=== PATIENT | female | born 1930 | race Caucasian/White ===

== ENCOUNTER → 2017-01-08 | Outpatient (CLI) | payer MEDICARE ==
[~2017-01-08] MED LIST: ARIMIDEX; C250T; CLD600T; COSAMIN DS; E400C; GARLIC; HYDROXYCHLOR; LRT10T; LVT.112T; MGX400T; OCUVITE; OMG1KC; TRIAMTERENE/HCTZ; ZINC; [UNRECOGNIZED DRUG - CODE]; [UNRECOGNIZED DRUG - OTHER]
--- NOTE | 2017-01-09 09:08 | Diagnostic Imaging Report ---
Bilateral screening mammogram 2D views with tomosynthesis The current study was also evaluated with a Computer Aided Detection (CAD) system. Indication: Screening. No current complaints stated on the questionnaire. COMPARISON: 01/04/16 FINDINGS: The breasts are composed of heterogeneously dense parenchyma which may decrease mammographic sensitivity. There are benign-appearing calcifications seen. Surgical clips in the upper outer aspect of the left breast are also noted. Allowing for technique and positional differences, no suspicious change is seen. IMPRESSION: Dense breasts with no definite change. ACR BI-RADS Category 2: Benign findings. Result letter will be mailed to the patient. Note: At least 10% of breast cancer is not imaged by mammography. Dictated by: Dictated on workstation # [id number]
== END ==
LOC: RAD 09:48
PROVIDERS: ATTEND Internal Medicine
DX: Z12.31 Encounter for screening mammogram for malignant neoplasm of breast (principal)
CPT/HCPCS: 77067

== ENCOUNTER 2017-08-14 12:48 | Outpatient (RCR) | payer MEDICARE | END 2017-08-14 13:49 | disposition home or self-care (01) | PROVIDERS: ATTEND Internal Medicine | DX: R53.81 Other malaise (principal); Z91.81 History of falling ==

== ENCOUNTER → 2018-01-27 | Outpatient (CLI) | payer MEDICARE ==
--- NOTE | 2018-01-27 13:54 | Diagnostic Imaging Report ---
INDICATION: Routine screening. COMPARISON: 01/08/2017 and 01/04/2016. TECHNIQUE: 2D and 3D bilateral screening mammography was performed with CAD. FINDINGS: Both breasts are heterogeneously dense, limiting the sensitivity of mammography. Post surgical changes in the outer left breast are again noted. The overall parenchymal pattern appears to be stable. There are vascular calcifications bilaterally. No mass or malignant appearing microcalcifications are seen. The axillae are unremarkable. IMPRESSION: No mammographic features suspicious for malignancy are identified. ACR BI-RADS Category 2: Benign findings. Result letter will be mailed to the patient. Note: At least 10% of breast cancer is not imaged by mammography. Dictated by: Dictated on workstation # [id number]
== END ==
LOC: RAD 10:10
PROVIDERS: ATTEND Internal Medicine
DX: Z12.31 Encounter for screening mammogram for malignant neoplasm of breast (principal); Z85.3 Personal history of malignant neoplasm of breast
CPT/HCPCS: 77067

== ENCOUNTER 2018-02-28 13:25 | Emergency (ER) | payer MEDICARE ==
[~2018-02-28] VITALS: Ht 162.6 cm; Wt 63.5 kg
--- OUTSIDE RECORDS SUMMARY | 2018-02-28 13:29 | XMS REPORT | Continuity of Care Document ---
Author Author [facility] Organization [facility] Address Unknown Phone Unavailable Allergies Active Description Code Type Severity Reaction Onset Reported/Identified Relationship to Patient Clinical Status Yes Sulfa (Sulfonamide Antibiotics) [id number] Drug Allergy Unknown RASH 2005 Yes amoxicillin [id number] Drug Allergy Mild N/A 08/20/2006 Medications There is no data. 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 09/10/2010 Ot V10.3 HX OF BREAST MALIGNANCY 09/10/2010 Ot V43.65 KNEE JOINT REPLACEMENT STATUS 09/10/2010 Ot V58.69 OTH MED,LT, CURRENT USE 09/10/2010 Ot V67.1 RADIOTHERAPY FOLLOW-UP 12/23/2010 Ot 276.1 HYPOSMOLALITY 12/23/2010 Ot 276.8 HYPOPOTASSEMIA 12/23/2010 Ot 401.9 HYPERTENSION NOS 12/23/2010 Ot 472.0 CHRONIC RHINITIS 12/23/2010 Ot 564.00 UNSPEC CONSTIPATION 12/23/2010 Ot 780.2 SYNCOPE AND COLLAPSE 12/23/2010 Ot 787.01 NAUSEA WITH VOMITING 12/23/2010 Ot E931.9 ADV EFF ANTINFCT NEC/NOS 12/23/2010 Ot V10.3 HX OF BREAST MALIGNANCY 03/11/2011 Ot 174.9 MALIGN NEOPL BREAST NOS 01/02/2015 Ot V15.89 01/02/2015 Ot V76.11 01/02/2015 Ot V10.3 01/02/2015 Ot V76.11 01/02/2015 Ot 174.9 01/02/2015 Ot V76.12 01/02/2015 JUAN ANTONIO ARMAS, RENETTA Rm Ot V76.12 01/02/2015 JUAN ANTONIO ARMAS, RENETTA Rm Ot V76.12 01/10/2015 Ot V15.89 01/10/2015 Ot V76.11 01/10/2015 Ot V10.3 01/10/2015 Ot V76.11 01/10/2015 Ot 174.9 01/10/2015 Ot V76.12 01/10/2015 JUAN ANTONIO ARMAS, RENETTA Rm Ot V76.12 01/10/2015 JUAN ANTONIO ARMAS, RENETTA Rm Ot V76.12 01/10/2015 JUAN ANTONIO ARMAS, RENETTA Rm Ot V76.12 01/26/2015 RENETTA ROMANO MD Ot V76.12 01/04/2016 Ot V10.3 HX OF BREAST MALIGNANCY 01/04/2016 Ot V76.11 SCRN MAMMO- HIGH RISK PT, MALIGNANT NEOPL 01/04/2016 Ot 174.9 MALIGN NEOPL BREAST NOS 01/04/2016 Ot V76.12 OTH SCREEN MAMMO-MALIGN NEOPLASM OF RIGOBERTO 01/04/2016 JUAN ANTONIO ARMAS, RENETTA Rm Ot V76.12 OTH SCREEN MAMMO-MALIGN NEOPLASM OF RIGOBERTO 01/04/2016 RENETTA ROMANO MD Ot V76.12 OTH SCREEN MAMMO-MALIGN NEOPLASM OF RIGOBERTO 01/04/2016 JUAN ANTONIO ARMAS, RENETTA Rm Ot V76.12 OTH SCREEN MAMMO-MALIGN NEOPLASM OF RIGOBERTO 01/04/2016 JUAN ANTONIO ARMAS, RENETTA Rm Ot Z12.31 ENCNTR SCREEN MAMMOGRAM FOR MALIGNANT NE 01/08/2016 RENETTA ROMANO MD Ot Z12.31 ENCNTR SCREEN MAMMOGRAM FOR MALIGNANT NE 01/16/2016 JUAN ANTONIO ARMAS, RENETTA Rm Ot Z12.31 ENCNTR SCREEN MAMMOGRAM FOR MALIGNANT NE 12/25/2016 JUAN ANTONIO ARMAS, RENETTA Rm Ot Z12.31 ENCNTR SCREEN MAMMOGRAM FOR MALIGNANT NE 01/03/2017 JUAN ANTONIO ARMAS, RENETTA Rm Ot Z12.31 ENCNTR SCREEN MAMMOGRAM FOR MALIGNANT NE 01/09/2017 RENETTA ROMANO MD Ot Z12.31 ENCNTR SCREEN MAMMOGRAM FOR MALIGNANT NE 01/14/2017 JUAN ANTONIO ARMAS, RENETTA Rm Ot Z12.31 ENCNTR SCREEN MAMMOGRAM FOR MALIGNANT NE 01/29/2017 JUAN ANTONIO ARMAS, RENETTA Rm Ot Z12.31 ENCNTR SCREEN MAMMOGRAM FOR MALIGNANT NE 07/16/2017 JUAN ANTONIO ARMAS, RENETTA Rm Ot V76.12 OTH SCREEN MAMMO-MALIGN NEOPLASM OF RIGOBERTO 07/16/2017 JUAN ANTONIO ARMAS, RENETTA Rm Ot V76.12 OTH SCREEN MAMMO-MALIGN NEOPLASM OF RIGOBERTO 07/16/2017 JUAN ANTONIO ARMAS, RENETTA Rm Ot V76.12 OTH SCREEN MAMMO-MALIGN NEOPLASM OF RIGOBERTO 07/16/2017 JUAN ANTONIO ARMAS, RENETTA Rm Ot Z12.31 ENCNTR SCREEN MAMMOGRAM FOR MALIGNANT NE 07/16/2017 JUAN ANTONIO ARMAS, RENETTA Rm Ot Z12.31 ENCNTR SCREEN MAMMOGRAM FOR MALIGNANT NE 08/04/2017 JUAN ANTONIO ARMAS, RENETTA Rm Ot R53.81 OTHER MALAISE 08/04/2017 JUAN ANTONIO ARMAS, RENETTA Rm Ot Z91.81 HISTORY OF FALLING 08/04/2017 JUAN ANTONIO ARMAS, RENETTA Rm Ot V76.12 OTH SCREEN MAMMO-MALIGN NEOPLASM OF RIGOBERTO 08/04/2017 JUAN ANTONIO ARMAS, RENETTA Rm Ot V76.12 OTH SCREEN MAMMO-MALIGN NEOPLASM OF RIGOBERTO 08/04/2017 JUAN ANTONIO ARMAS, RENETTA Rm Ot V76.12 OTH SCREEN MAMMO-MALIGN NEOPLASM OF RIGOBERTO 08/04/2017 JUAN ANTONIO ARMAS, RENETTA Rm Ot Z12.31 ENCNTR SCREEN MAMMOGRAM FOR MALIGNANT NE 08/04/2017 JUAN ANTONIO ARMAS, RENETTA Rm Ot Z12.31 ENCNTR SCREEN MAMMOGRAM FOR MALIGNANT NE 08/04/2017 JUAN ANTONIO ARMAS, RENETTA Rm Ot R53.81 OTHER MALAISE 08/04/2017 JUAN ANTONIO ARMAS, RENETTA Rm Ot Z91.81 HISTORY OF FALLING 08/14/2017 JUAN ANTONIO ARMAS, RENETTA Rm Ot R53.81 OTHER MALAISE 08/14/2017 JUAN ANTONIO ARMAS, RENETTA Rm Ot Z91.81 HISTORY OF FALLING 01/27/2018 JUAN ANTONIO ARMAS, RENETTA Rm Ot V76.12 OTH SCREEN MAMMO-MALIGN NEOPLASM OF RIGOBERTO 01/27/2018 JUAN ANTONIO ARMAS, RENETTA Rm Ot V76.12 OTH SCREEN MAMMO-MALIGN NEOPLASM OF RIGOBERTO 01/27/2018 JUAN ANTONIO ARMAS, RENETTA Rm Ot V76.12 OTH SCREEN MAMMO-MALIGN NEOPLASM OF RIGOBERTO 01/27/2018 RENETTA ROMANO MD Ot Z12.31 ENCNTR SCREEN MAMMOGRAM FOR MALIGNANT NE 01/27/2018 RENETTA ROMANO MD Ot Z12.31 ENCNTR SCREEN MAMMOGRAM FOR MALIGNANT NE 01/27/2018 RENETTA ROMANO MD Ot Z12.31 ENCNTR SCREEN MAMMOGRAM FOR MALIGNANT NE 01/29/2018 RENETTA ROMANO MD Ot Z12.31 ENCNTR SCREEN MAMMOGRAM FOR MALIGNANT NE 01/29/2018 RENETTA ROMANO MD Ot Z85.3 PERSONAL HISTORY OF MALIGNANT NEOPLASM O Procedures There is no data. Results There is no data. Encounters ACCT No. Visit Date/Time Discharge Status Pt. Type Provider Facility Loc./Unit Complaint [id number] 01/27/2018 10:10:00 01/27/2018 23:59:59 CLS Outpatient RENETTA ROMANO MD [facility] RAD SCREENING [id number] 08/14/2017 12:48:00 08/14/2017 13:49:00 DIS Outpatient RENETTA ROMANO MD [facility] REHAB DECONDITIONING AND FALL RISK [id number] 01/08/2017 09:48:00 01/08/2017 23:59:59 CLS Outpatient RENETTA ROMANO MD [facility] RAD SCREENING,HX OF BREAST CA [id number] 01/04/2016 09:40:00 01/04/2016 23:59:59 CLS Outpatient RENETTA ROMANO MD [facility] RAD SCREENING [id number] 01/02/2015 09:58:00 01/02/2015 23:59:59 CLS Outpatient RENETTA ROMANO MD [facility] RAD SCREENING [id number] 12/29/2013 09:31:00 12/29/2013 23:59:59 CLS Outpatient RENETTA ROMANO MD [facility] RAD SCREENING [id number] 12/15/2012 08:20:00 12/15/2012 23:59:59 CLS Outpatient RENETTA ROMANO MD [facility] RAD SCREENING [id number] 01/02/2015 09:58:00 Document Registration [id number] 12/06/2011 09:37:00 Document Registration [id number] 03/12/2011 00:00:00 Document Registration [id number] 12/21/2010 03:40:00 Document Registration [id number] 12/18/2010 09:34:00 Document Registration [id number] 11/28/2010 12:13:00 Document Registration [id number] 06/19/2010 15:39:00 Document Registration [id number] 11/23/2009 09:21:00 Document Registration [id number] 05/24/2009 13:13:00 Document Registration
[2018-02-28] MEDS ORDERED: LOSA100T8 (13:38)
--- NOTE | 2018-02-28 13:40 | ED General ---
General Chief Complaint: Dizziness/Syncope Stated Complaint: DIZZY Source of Information: Patient, EMS Exam Limitations: No Limitations History of Present Illness Date Seen by Provider: Feb 28, 2018 Time Seen by Provider: 13:38 Initial Comments Per EMS from home with reports of dizziness. Patient states that she developed some dizziness at about 11 AM today sudden in onset after walking from the kitchen to the living room. This was transient and completely resolved by the time EMS arrived. However she states "my head doesn't feel right". She denies any headache or confusion or vision changes or complaints of unilateral weakness. She does have a history of hypertension. She denies any chest pain or shortness of breath. She denies any nausea or vomiting. She states "I just don' t feel like myself". Earlier this morning she ate breakfast at [employer] with her adult children and she had eggs over easy, hash browns and biscuits and gravy. She had a normal appetite and felt perfectly fine at that time. She does have a history of hypertension and upon arrival to the emergency room her first 2 blood pressures were 203/91 and a few minutes later 193/97. Timing/Duration: 1-3 Hours Severity: Mild Associated Systoms: No Chest Pain, No Cough, No Diaphoresis, No Fever/Chills, No Headaches Allergies and Home Medications Allergies Coded Allergies: Amoxicillin (Unverified Allergy, Mild, 08/20/06) Sulfa (Sulfonamide Antibiotics) (Verified Allergy, Unknown, RASH, 09/11/05) Home Medications [Hydroxychlor] , 200 MG BID, (Reported) Patient Home Medication List Home Medication List Reviewed: Yes Review of Systems Review of Systems Constitutional: see HPI; No chills EENTM: see HPI Respiratory: no symptoms reported, see HPI Cardiovascular: no symptoms reported Genitourinary: no symptoms reported Musculoskeletal: no symptoms reported Skin: no symptoms reported Psychiatric/Neurological: No Symptoms Reported; Denies Anxiety, Denies Depressed, Denies Emotional Problems, Denies Headache, Denies Paresthesia, Denies Pre-Existing Deficit, Denies Tingling, Denies Tremors, Denies Weakness Hematologic/Lymphatic: No Symptoms Reported Immunological/Allergic: no symptoms reported Past Vyflhov-Rtloft-Lflwoq Hx Patient Social History Alcohol Use: Denies Use Recreational Drug Use: No Smoking Status: Never a Smoker Recent Hopitalizations: Yes Past Medical History Surgeries: Yes (T&A,HYST.,THYROIDECTOMY,TKR,BREAST SURGERY,CATARACTS,ORAL SURGERY) Hysterectomy, Orthopedic Respiratory: No Cardiac: Yes (PT DENIES ANY CHEST PAIN,ANGINA,PALPATIONS,IRREGULAR HEART RATE, JAW OR ARM ) Hypertension Neurological: No Reproductive Disorders: No Gastrointestinal: No Musculoskeletal: Yes Endocrine: Yes Hypothyroidsim Psychosocial: Yes Blood Disorders: No Physical Exam Vital Signs Vital Signs - First Documented 02/28/18 13:28 Temp 97.3 Pulse 77 Resp 18 B/P (MAP) 193/94 (127) Pulse Ox 97 O2 Delivery Room Air Capillary Refill : Height, Weight, BMI Height: '" Weight: lbs. oz. 68.648286ek; BMI Method: General Appearance: No Apparent Distress, WD/WN, Other (no nystagmus, alert and oriented. No drift of the upper extremities. Speech is clear and appropriate.) Eyes: Bilateral Eye Normal Inspection, Bilateral Eye PERRL, Bilateral Eye EOMI HEENT: PERRL/EOMI, TMs Normal, Normal ENT Inspection, Pharynx Normal Neck: Full Range of Motion, Normal Inspection Respiratory: Normal Breath Sounds, No Accessory Muscle Use, No Respiratory Distress Cardiovascular: Regular Rate, Rhythm, Normal Peripheral Pulses Gastrointestinal: Normal Bowel Sounds, Non Tender, Soft Extremity: Normal Capillary Refill, Normal Inspection, Normal Range of Motion Neurologic/Psychiatric: Alert, Oriented x3, No Motor/Sensory Deficits Skin: Normal Color, Warm/Dry Progress/Results/Core Measures Suspected Sepsis SIRS Temperature: Pulse: Respiratory Rate: Laboratory Tests 02/28/18 13:26: White Blood Count 7.5 Blood Pressure / Mean: Laboratory Tests 02/28/18 13:26: Platelet Count 245 02/28/18 14:08: Creatinine 0.83, Total Bilirubin 0.4 Results/Orders Lab Results Laboratory Tests Test 02/28/18 13:26 02/28/18 14:00 02/28/18 14:08 Range/Units White Blood Count 7.5 4.3-11.0 10^3/uL Red Blood Count 3.81 L 4.35-5.85 10^6/uL Hemoglobin 12.7 11.5-16.0 G/DL Hematocrit 36 35-52 % Mean Corpuscular Volume 94 80-99 FL Mean Corpuscular Hemoglobin 33 25-34 PG Mean Corpuscular Hemoglobin Concent 36 32-36 G/DL Red Cell Distribution Width 14.6 H 10.0-14.5 % Platelet Count 245 130-400 10^3/uL Mean Platelet Volume 10.1 7.4-10.4 FL Neutrophils (%) (Auto) 74 42-75 % Lymphocytes (%) (Auto) 14 12-44 % Monocytes (%) (Auto) 10 0-12 % Eosinophils (%) (Auto) 2 0-10 % Basophils (%) (Auto) 0 0-10 % Neutrophils # (Auto) 5.6 1.8-7.8 X 10^3 Lymphocytes # (Auto) 1.1 1.0-4.0 X 10^3 Monocytes # (Auto) 0.8 0.0-1.0 X 10^3 Eosinophils # (Auto) 0.1 0.0-0.3 10^3/uL Basophils # (Auto) 0.0 0.0-0.1 10^3/uL Troponin I < 0.30 <0.30 NG/ML Urine Color YELLOW Urine Clarity SLIGHTLY CLOUDY Urine pH 7 5-9 Urine Specific [place] 1.010 L 1.016-1.022 Urine Protein 1+ H NEGATIVE Urine Glucose (UA) NEGATIVE NEGATIVE Urine Ketones NEGATIVE NEGATIVE Urine Nitrite NEGATIVE NEGATIVE Urine Bilirubin NEGATIVE NEGATIVE Urine Urobilinogen NORMAL NORMAL MG/DL Urine Leukocyte Esterase 3+ H NEGATIVE Urine RBC (Auto) 2+ H NEGATIVE Urine RBC NONE /HPF Urine WBC TNTC H /HPF Urine Squamous Epithelial Cells 2-5 /HPF Urine Crystals NONE /LPF Urine Bacteria LARGE H /HPF Urine Casts NONE /LPF Urine Mucus NEGATIVE /LPF Urine Culture Indicated YES Sodium Level 136 135-145 MMOL/L Potassium Level 4.1 3.6-5.0 MMOL/L Chloride Level 101 98-107 MMOL/L Carbon Dioxide Level 23 21-32 MMOL/L Anion Gap 12 5-14 MMOL/L Blood Urea Nitrogen 29 H 7-18 MG/DL Creatinine 0.83 0.60-1.30 MG/DL Estimat Glomerular Filtration Rate > 60 BUN/Creatinine Ratio 35 Glucose Level 96 70-105 MG/DL Calcium Level 9.3 8.5-10.1 MG/DL Corrected Calcium 9.3 8.5-10.1 MG/DL Total Bilirubin 0.4 0.1-1.0 MG/DL Aspartate Amino Transf (AST/SGOT) 13 5-34 U/L Alanine Aminotransferase (ALT/SGPT) 16 0-55 U/L Alkaline Phosphatase 55 40-136 U/L Total Protein 7.5 6.4-8.2 GM/DL Albumin 4.0 3.2-4.5 GM/DL My Orders Orders - FELICE QUINTERO APRN Ct Head Wo (02/28/18 13:32) Ekg Tracing (02/28/18 13:32) Troponin I (02/28/18 13:32) Cbc With Automated Diff (02/28/18 13:32) Ua Culture If Indicated (02/28/18 13:32) Iv Heplock-Insert (Order) (02/28/18 13:32) Clonidine Tablet (Catapres Tablet) (02/28/18 13:45) Comprehensive Metabolic Panel (02/28/18 13:56) Urine Culture (02/28/18 14:00) Ceftriaxone For Iv Use (Rocephin For I (02/28/18 14:30) Medications Given in ED Current Medications Medications Dose Ordered Sig/Caridad Route Start Time Stop Time Status Last Admin Dose Admin Ceftriaxone Sodium 1000 mg/ Sodium Chloride 50 ml @ 100 mls/hr ONCE ONCE IV 02/28/18 14:30 02/28/18 14:59 DC 02/28/18 14:40 100 MLS/HR Clonidine HCl 0.1 mg ONCE ONCE PO 02/28/18 13:45 02/28/18 13:46 DC 02/28/18 13:40 0.1 MG Vital Signs/I&O 02/28/18 02/28/18 13:28 14:17 Temp 97.3 Pulse 77 71 Resp 18 18 B/P (MAP) 193/94 (127) 188/82 (117) Pulse Ox 97 95 O2 Delivery Room Air Room Air Capillary Refill : Diagnostic Imaging Diagonstic Imaging: Xray Plain Films/CT/US/NM/MRI: chest Comments NAME: DANIEL TREVIZO [facility] REC#: [id number] PT STATUS: REG ER : 1930 PHYSICIAN: FELICE QUINTERO APRN ADMIT DATE: 02/28/18/ER Draft Date of Exam:02/28/18 CT HEAD WO PROCEDURE: CT head without contrast. TECHNIQUE: Multiple contiguous axial images were obtained through the brain without the use of intravenous contrast. INDICATION: Dizziness. COMPARISON: None. FINDINGS: BRAIN: No parenchymal hemorrhage, midline shift or mass effect. Hummel-white matter differentiation is intact. No acute infarct. Moderate periventricular and subcortical low-density white matter changes. Moderate prominence of the ventricles and Sulci consistent with cortical and cerebellar parenchymal volume loss. EXTRA-AXIAL SPACES: No subdural or epidural collections. ORBITS AND PARANASAL SINUSES: Visualized orbits and globes are intact. Visualized paranasal sinuses and mastoid air cells are clear. CALVARIUM AND SOFT TISSUES: The calvarium is intact. No fractures or suspicious bony lesions. The extracranial soft tissues are unremarkable. IMPRESSION: No acute intracranial pathology. Chronic changes consisting of age-related atrophy and nonspecific white matter disease most commonly attributed to small vessel ischemic change. Dictated on workstation # [id number] Dict: 02/28/18 1400 Trans: 02/28/18 1403 [facility] [id number] Interpreted by: DAVID ANTHONY DO Electronically signed by: Departure Communication (Admissions) 150-feeling better at this time. Family at bedside. Discussed the hypertension and urinary tract infection as a likely cause for her symptoms. She will take medication as directed and follow-up with primary care later next week. Impression Primary Impression: Urinary tract infection Qualified Codes: N30.00 - Acute cystitis without hematuria Disposition: HOME, SELF-CARE Condition: Stable Departure-Patient Inst. Decision time for Depature: 14:29 Referrals: RENETTA ROMANO MD (PCP/Family) Primary Care Physician Patient Instructions: Urinary Tract Infection, Adult (DC) Add. Discharge Instructions: 1. Drink clear fluids 2. Follow-up with your doctor next week. Take antibiotics as directed. Return to ER for any worsening. All discharge instructions reviewed with patient and/ or family. Voiced understanding. Scripts Cefuroxime Axetil (Cefuroxime) 500 Mg Tablet 500 MG PO BID, #10 TAB Prov: FELICE QUINTERO APRN 02/28/18 FELICE QUINTERO APRN Feb 28, 2018 13:40
[2018-02-28 13:43] LABS: BASOPHILS % (AUTO) 0 % (0-10); EOSINOPHILS # (AUTO) 0.1 10^3/uL (0.0-0.3); EOSINOPHILS % (AUTO) 2 % (0-10); HEMATOCRIT 36 % (35-52); HEMOGLOBIN 12.7 G/DL (11.5-16.0); LYMPHOCYTES # (AUTO) 1.1 X 10^3 (1.0-4.0); LYMPHOCYTES % (AUTO) 14 % (12-44); MEAN CORPUSCULAR HEMOGLOBIN 33 PG (25-34); MEAN CORPUSCULAR HGB CONC 36 G/DL (32-36); MEAN CORPUSCULAR VOLUME 94 FL (80-99); MEAN PLATELET VOLUME 10.1 FL (7.4-10.4); MONOCYTES # (AUTO) 0.8 X 10^3 (0.0-1.0); MONOCYTES % (AUTO) 10 % (0-12); NEUTROPHILS # (AUTO) 5.6 X 10^3 (1.8-7.8); NEUTROPHILS % (AUTO) 74 % (42-75); PLATELET COUNT 245 10^3/uL (130-400); RED BLOOD COUNT 3.81 10^6/uL (4.35-5.85); RED CELL DISTRIBUTION WIDTH 14.6 % (10.0-14.5); WHITE BLOOD COUNT 7.5 10^3/uL (4.3-11.0)
[2018-02-28] MEDS ORDERED: cloNIDine 0.1 MG (CATAPRES) TAB PO ONE (13:45)
--- NOTE | 2018-02-28 14:03 | Diagnostic Imaging Report ---
PROCEDURE: CT head without contrast. TECHNIQUE: Multiple contiguous axial images were obtained through the brain without the use of intravenous contrast. INDICATION: Dizziness. COMPARISON: None. FINDINGS: BRAIN: No parenchymal hemorrhage, midline shift or mass effect. Hummel-white matter differentiation is intact. No acute infarct. Moderate periventricular and subcortical low-density white matter changes. Moderate prominence of the ventricles and Sulci consistent with cortical and cerebellar parenchymal volume loss. EXTRA-AXIAL SPACES: No subdural or epidural collections. ORBITS AND PARANASAL SINUSES: Visualized orbits and globes are intact. Visualized paranasal sinuses and mastoid air cells are clear. CALVARIUM AND SOFT TISSUES: The calvarium is intact. No fractures or suspicious bony lesions. The extracranial soft tissues are unremarkable. IMPRESSION: No acute intracranial pathology. Chronic changes consisting of age-related atrophy and nonspecific white matter disease most commonly attributed to small vessel ischemic change. Dictated by: Dictated on workstation # [id number]
[2018-02-28 14:08] LABS: BILIRUBIN,URINE NEGATIVE (NEGATIVE); CLARITY,URINE SLIGHTLY CLOUDY; COLOR,URINE YELLOW; GLUCOSE, URINE (UA) NEGATIVE (NEGATIVE); KETONES,URINE NEGATIVE (NEGATIVE); LEUKOCYTE ESTERASE ,URINE 3+ (NEGATIVE); NITRITE,URINE NEGATIVE (NEGATIVE); PH,URINE 7 (5-9); PROTEIN,URINE 1+ (NEGATIVE); UROBILINOGEN,URINE NORMAL (NORMAL)
[2018-02-28 14:17] VITALS: BP 188/82
[2018-02-28 14:27] LABS: BACTERIA,URINE LARGE /HPF; WBC,URINE TNTC /HPF
[2018-02-28] MEDS ORDERED: cefTRIAXone FOR IV USE 1,000 MG in NS (IVPB) 50 ML IV ONE (14:30)
[2018-02-28 14:35] LABS: ALANINE AMINOTRANSFERASE 16 U/L (0-55); ALKALINE PHOSPHATASE 55 U/L (40-136); BILIRUBIN,TOTAL 0.4 MG/DL (0.1-1.0); BUN/CREATININE RATIO 35; CALCIUM 9.3 MG/DL (8.5-10.1); CARBON DIOXIDE 23 MMOL/L (21-32); CHLORIDE 101 MMOL/L (98-107); CREATININE SERUM 0.83 MG/DL (0.60-1.30); GFR ESTIMATED > 60; GLUCOSE 96 MG/DL (70-105); POTASSIUM 4.1 MMOL/L (3.6-5.0); SODIUM 136 MMOL/L (135-145); TOTAL PROTEIN 7.5 GM/DL (6.4-8.2)
[2018-02-28] MEDS ORDERED: CEFU500T63 PO (15:02)
[2018-02-28 15:21] VITALS: BP 154/70
== END 2018-02-28 15:21 | disposition home or self-care (01) ==
LOC: EDUNIT# 13:25 → ER 13:26
DX: N39.0 Urinary tract infection, site not specified (principal); I10 Essential (primary) hypertension; E03.9 Hypothyroidism, unspecified; Z90.89 Acquired absence of other organs; Z90.710 Acquired absence of both cervix and uterus; Z88.0 Allergy status to penicillin; Z88.2 Allergy status to sulfonamides
CPT/HCPCS: 36415; 70450; 80053; 81000; 84484; 85025; 87077; 87088; 87186; 93005; 96365

== ENCOUNTER → 2018-04-30 | Outpatient (CLI) | payer MEDICARE ==
[~2018-04-30] MED LIST changes: +CEFU500T63 PO; +LOSA100T57
[2018-04-30 15:07] LABS: CALCIUM 9.7 MG/DL (8.5-10.1); CREATININE SERUM 1.03 MG/DL (0.60-1.30)
== END ==
LOC: LAB 13:56
PROVIDERS: ATTEND Internal Medicine
DX: N39.0 Urinary tract infection, site not specified (principal)
CPT/HCPCS: 36415; 80048; 87077; 87088

== ENCOUNTER → 2018-06-18 | Outpatient (CLI) | payer MEDICARE ==
[2018-06-18 11:15] LABS: BILIRUBIN,URINE NEGATIVE (NEGATIVE); CLARITY,URINE CLEAR; COLOR,URINE YELLOW; GLUCOSE, URINE (UA) NEGATIVE (NEGATIVE); KETONES,URINE NEGATIVE (NEGATIVE); LEUKOCYTE ESTERASE ,URINE 1+ (NEGATIVE); NITRITE,URINE NEGATIVE (NEGATIVE); PH,URINE 8 (5-9); PROTEIN,URINE NEGATIVE (NEGATIVE); UROBILINOGEN,URINE NORMAL (NORMAL)
[2018-06-18 11:21] LABS: BACTERIA,URINE TRACE /HPF
== END ==
LOC: LAB 10:46
PROVIDERS: ATTEND Internal Medicine
DX: R35.0 Frequency of micturition (principal)
CPT/HCPCS: 81000; 87077; 87088; 87186

== ENCOUNTER → 2019-02-02 | Outpatient (CLI) | payer MEDICARE ==
--- NOTE | 2019-02-02 15:43 | Diagnostic Imaging Report ---
INDICATION: Routine screening. COMPARISON: 01/27/2018 and 01/08/2017. TECHNIQUE: 2D and 3D bilateral screening mammography was performed with CAD. FINDINGS: Both breasts remain heterogeneously dense, limiting the sensitivity of mammography. Lumpectomy changes with multiple surgical clips in the outer left breast are again noted. No mass or malignant appearing microcalcifications are seen. The axillae are unremarkable. IMPRESSION: No mammographic features suspicious for malignancy are identified. ACR BI-RADS Category 2: Benign findings. Result letter will be mailed to the patient. Note: At least 10% of breast cancer is not imaged by mammography. Dictated by: Dictated on workstation # [id number]
== END ==
LOC: RAD 13:21
PROVIDERS: ATTEND Internal Medicine
DX: Z12.31 Encounter for screening mammogram for malignant neoplasm of breast (principal); Z98.890 Other specified postprocedural states
CPT/HCPCS: 77067

== ENCOUNTER → 2019-04-14 | Outpatient (CLI) | payer MEDICARE ==
[2019-04-14 11:09] LABS: BILIRUBIN,URINE NEGATIVE (NEGATIVE); CLARITY,URINE CLOUDY; COLOR,URINE YELLOW; GLUCOSE, URINE (UA) NEGATIVE (NEGATIVE); KETONES,URINE NEGATIVE (NEGATIVE); LEUKOCYTE ESTERASE ,URINE 3+ (NEGATIVE); NITRITE,URINE POSITIVE (NEGATIVE); PH,URINE 8.5 (5-9); PROTEIN,URINE TRACE (NEGATIVE)
[2019-04-14 11:18] LABS: BACTERIA,URINE LARGE /HPF; RBC,URINE 0-2 /HPF; WBC,URINE TNTC /HPF
== END ==
LOC: LAB 10:40
PROVIDERS: ATTEND Internal Medicine
DX: R35.0 Frequency of micturition (principal); R30.0 Dysuria
CPT/HCPCS: 81000; 87088

== ENCOUNTER 2019-09-17 11:06 | Outpatient (RCR) | payer MEDICARE | END 2019-09-17 12:00 | disposition home or self-care (01) | PROVIDERS: ATTEND Internal Medicine | DX: R53.81 Other malaise (principal); R53.1 Weakness ==

== ENCOUNTER → 2020-09-14 | Outpatient (CLI) | payer MEDICARE ==
[2020-09-14 14:24] LABS: BILIRUBIN,URINE NEGATIVE (NEGATIVE); CLARITY,URINE CLEAR; COLOR,URINE YELLOW; GLUCOSE, URINE (UA) NEGATIVE (NEGATIVE); KETONES,URINE NEGATIVE (NEGATIVE); LEUKOCYTE ESTERASE ,URINE NEGATIVE (NEGATIVE); NITRITE,URINE NEGATIVE (NEGATIVE); PROTEIN,URINE NEGATIVE (NEGATIVE)
[2020-09-14 14:47] LABS: BACTERIA,URINE FEW /HPF
[2020-09-14 14:48] LABS: AMORPHOUS SEDIMENT,UR FEW AMOR URATES /LPF
== END ==
LOC: LAB 13:47
PROVIDERS: ATTEND Internal Medicine
DX: R35.0 Frequency of micturition (principal); R30.0 Dysuria
CPT/HCPCS: 81000; 87088

== ENCOUNTER 2020-10-28 03:42 | Observation (INO) | payer MEDICARE ==
[~2020-10-28] VITALS: Ht 167.7 cm; Wt 60.0 kg
[~2020-10-28 03:42] MED LIST changes: -LOSA100T57; +LOSA100T57 PO
[2020-10-28 03:58] LABS: BASOPHILS % (AUTO) 0 % (0-10); EOSINOPHILS # (AUTO) 0.2 10^3/uL (0.0-0.3); EOSINOPHILS % (AUTO) 3 % (0-10); HEMATOCRIT 34 % (35-52); LYMPHOCYTES # (AUTO) 1.1 10^3/uL (1.0-4.0); LYMPHOCYTES % (AUTO) 14 % (12-44); MEAN CORPUSCULAR HEMOGLOBIN 32 pg (25-34); MEAN CORPUSCULAR HGB CONC 35 g/dL (32-36); MEAN CORPUSCULAR VOLUME 91 fL (80-99); MEAN PLATELET VOLUME 9.4 fL (9.0-12.2); MONOCYTES # (AUTO) 0.8 10^3/uL (0.0-1.0); MONOCYTES % (AUTO) 10 % (0-12); NEUTROPHILS # (AUTO) 5.4 10^3/uL (1.8-7.8); NEUTROPHILS % (AUTO) 72 % (42-75); PLATELET COUNT 286 10^3/uL (130-400); WHITE BLOOD COUNT 7.5 10^3/uL (4.3-11.0)
[2020-10-28 04:06] LABS: CHLORIDE 103 MMOL/L (98-107); POTASSIUM 3.6 MMOL/L (3.6-5.0); SODIUM 136 MMOL/L (135-145)
[2020-10-28 04:07] LABS: CALCIUM 9.3 MG/DL (8.5-10.1)
[2020-10-28 04:08] LABS: GLUCOSE 118 MG/DL (70-105); TOTAL PROTEIN 8.2 GM/DL (6.4-8.2)
[2020-10-28 04:09] LABS: CARBON DIOXIDE 24 MMOL/L (21-32)
[2020-10-28 04:10] LABS: BILIRUBIN,TOTAL 0.6 MG/DL (0.1-1.0)
[2020-10-28 04:12] LABS: ALKALINE PHOSPHATASE 70 U/L (40-136); CREATININE SERUM 0.94 MG/DL (0.60-1.30); GFR ESTIMATED 56
[2020-10-28 04:13] LABS: BUN/CREATININE RATIO 22
[2020-10-28 04:15] LABS: ALANINE AMINOTRANSFERASE 18 U/L (0-55)
[2020-10-28 04:21] LABS: BILIRUBIN,URINE NEGATIVE (NEGATIVE); CLARITY,URINE CLOUDY; COLOR,URINE YELLOW; GLUCOSE, URINE (UA) NEGATIVE (NEGATIVE); KETONES,URINE NEGATIVE (NEGATIVE); LEUKOCYTE ESTERASE ,URINE 3+ (NEGATIVE); NITRITE,URINE NEGATIVE (NEGATIVE); PH,URINE 6.5 (5-9); PROTEIN,URINE TRACE (NEGATIVE)
[2020-10-28 04:32] LABS: BACTERIA,URINE FEW /HPF; RBC,URINE 25-50 /HPF; WBC,URINE 50-100 /HPF
[2020-10-28 04:35] LABS: TSH (THYROID ANALYZER) 2.63 UIU/ML (0.35-4.94)
[2020-10-28] MEDS ORDERED: cefTRIAXone 1,000 MG in WATER (STERILE) FOR INJECTION 10 ML IV ONE (04:45)
--- NOTE | 2020-10-28 04:45 | ED General ---
General Chief Complaint: Dizziness/Syncope Stated Complaint: DIZZY Nursing Triage Note: Pt arrival to ER via [facility] with complaint of Dizziness x1 hour. PT states that she got up to use bathroom and felt dizzy. Once sitting on commode, patient didn't think she could get up without falling so EMS was summoned. Pt arrival with only complaint of dizziness and slight headache. Source of Information: Patient (SOMEWHAT LIMITED HISTORIAN) History of Present Illness Date Seen by Provider: Oct 28, 2020 Time Seen by Provider: 03:45 Initial Comments PT ARRIVES VIA EMS FROM HOME PT LIVES ALONE STATES SHE GOT UP TO GO TO THE BATHROOM,APPROXIMATELY AN HOUR AGO, AND STARTED FEELING DIZZY STATES NORMALLY SHE GETS UP 2-3 TIMES A NIGHT TO GO TO THE BATHROOM DENIES ANY URINARY SYMPTOMS OTHERWISE--NO INCREASED FREQUENCY, NO PAIN/BURNING, ETC. C/O SLIGHT HEADACHE NO VISION CHANGES NO NAUSEA/VOMITING/DIARRHEA NO PARESTHESIAS OR MOTOR DEFICITS NO ABDOMINAL PAIN NO CHEST PAIN NO SHORTNESS OF BREATH NO COUGH NO FEVER OR RECENT ILLNESS STATES SHE FELT FINE WHEN SHE WENT TO BED NO HISTORY OF SIMILAR PT HAS HISTORY OF HTN, HYPOTHYROIDISM, AND BREAST CANCER IN THE PAST NO CHANGES IN MEDICATIONS, NO MISSED DOSES OF MEDICATIONS SEES DR. ROMANO APPROXIMATELY EVERY 6 MONTHS FOR ROUTINE EXAMS, LAST EXAM WAS A COUPLE OF MONTHS AGO PT DENIES ANY SICK CONTACTS PT HAS RECEIVED BOTH COVID-19 VACCINES PCP: DR. ROMANO Allergies and Home Medications Allergies Coded Allergies: Amoxicillin (Unverified Allergy, Mild, 08/20/06) Sulfa (Sulfonamide Antibiotics) (Verified Allergy, Unknown, RASH, 09/11/05) Home Medications Cefdinir 300 Mg Capsule, 300 MG PO BID Prescribed by: DEBORAH PERALTA on 10/28/20 0615 Cefuroxime Axetil 500 Mg Tablet, 500 MG PO BID Prescribed by: FELICE QUINTERO on 02/28/18 1502 [Hydroxychlor] , 200 MG BID, (Reported) Patient Home Medication List Home Medication List Reviewed: Yes Review of Systems Review of Systems Constitutional: see HPI; No chills, No diaphoresis; dizziness; No fever, No malaise EENTM: no symptoms reported Respiratory: no symptoms reported; No cough, No short of breath Cardiovascular: no symptoms reported; No chest pain, No edema, No syncope Gastrointestinal: no symptoms reported; No abdominal pain, No diarrhea, No nausea, No vomiting Genitourinary: see HPI; No dysuria, No frequency; nocturia (NORMAL FOR PT) Musculoskeletal: no symptoms reported Skin: no symptoms reported Psychiatric/Neurological: See HPI (DIZZINESS); Denies Headache, Denies Numbness, Denies Paresthesia, Denies Seizure, Denies Tingling, Denies Tremors, Denies Weakness Hematologic/Lymphatic: No Symptoms Reported Immunological/Allergic: no symptoms reported Past Mpyygwr-Bwuqsg-Cepskq Hx Patient Social History Tobacco Use?: No Use of E-Cig and/or Vaping dev: No Substance use?: No Alcohol Use?: No Pt feels they are or have been: No Immunizations Up To Date Influenza Vaccine Up-to-Date: No; Not Current Second COVID19 Vaccination Shantanu: June 21, 2020 COVID19 Vaccine Table Games Shift Manager: Luli Past Medical History Surgery/Hospitalization HX: LEFT BREAST LUMPECTOMY Surgeries: Yes (T&A,HYST.,THYROIDECTOMY,TKR,BREAST SURGERY,CATARACTS,ORAL SURGERY) Breast, Eye Surgery, Hysterectomy, Orthopedic, Thyroidectomy Respiratory: No Cardiac: Yes (PT DENIES ANY CHEST PAIN,ANGINA,PALPATIONS,IRREGULAR HEART RATE,JAW OR ARM ) Hypertension Neurological: No Reproductive Disorders: No Gastrointestinal: No Musculoskeletal: Yes Endocrine: Yes Hypothyroidsim Psychosocial: Yes Blood Disorders: No Physical Exam Vital Signs Vital Signs - First Documented 10/28/20 03:46 Temp 36.3 Pulse 80 Resp 18 B/P (MAP) 180/87 (118) Pulse Ox 97 O2 Delivery Room Air Capillary Refill : Less Than 3 Seconds Height, Weight, BMI Height: 5'4.00" Weight: 140lbs. oz. 63.524303mk; 21.00 BMI Method:Estimated Progress/Results/Core Measures Suspected Sepsis SIRS Temperature: Pulse: 80 Respiratory Rate: 18 Laboratory Tests 10/28/20 03:53: White Blood Count 7.5 Blood Pressure 180 /87 Mean: 118 Laboratory Tests 10/28/20 03:53: Creatinine 0.94, Platelet Count 286, Total Bilirubin 0.6 Results/Orders Lab Results Laboratory Tests Test 10/28/20 03:53 10/28/20 04:16 Range/Units White Blood Count 7.5 4.3-11.0 10^3/uL Red Blood Count 3.76 L 3.80-5.11 10^6/uL Hemoglobin 12.0 11.5-16.0 g/dL Hematocrit 34 L 35-52 % Mean Corpuscular Volume 91 80-99 fL Mean Corpuscular Hemoglobin 32 25-34 pg Mean Corpuscular Hemoglobin Concent 35 32-36 g/dL Red Cell Distribution Width 14.1 10.0-14.5 % Platelet Count 286 130-400 10^3/uL Mean Platelet Volume 9.4 9.0-12.2 fL Immature Granulocyte % (Auto) 1 % Neutrophils (%) (Auto) 72 42-75 % Lymphocytes (%) (Auto) 14 12-44 % Monocytes (%) (Auto) 10 0-12 % Eosinophils (%) (Auto) 3 0-10 % Basophils (%) (Auto) 0 0-10 % Neutrophils # (Auto) 5.4 1.8-7.8 10^3/uL Lymphocytes # (Auto) 1.1 1.0-4.0 10^3/uL Monocytes # (Auto) 0.8 0.0-1.0 10^3/uL Eosinophils # (Auto) 0.2 0.0-0.3 10^3/uL Basophils # (Auto) 0.0 0.0-0.1 10^3/uL Immature Granulocyte # (Auto) 0.0 0.0-0.1 10^3/uL Sodium Level 136 135-145 MMOL/L Potassium Level 3.6 3.6-5.0 MMOL/L Chloride Level 103 98-107 MMOL/L Carbon Dioxide Level 24 21-32 MMOL/L Anion Gap 9 5-14 MMOL/L Blood Urea Nitrogen 21 H 7-18 MG/DL Creatinine 0.94 0.60-1.30 MG/DL Estimat Glomerular Filtration Rate 56 BUN/Creatinine Ratio 22 Glucose Level 118 H 70-105 MG/DL Calcium Level 9.3 8.5-10.1 MG/DL Corrected Calcium 9.3 8.5-10.1 MG/DL Magnesium Level 2.0 1.6-2.4 MG/DL Total Bilirubin 0.6 0.1-1.0 MG/DL Aspartate Amino Transf (AST/SGOT) 16 5-34 U/L Alanine Aminotransferase (ALT/SGPT) 18 0-55 U/L Alkaline Phosphatase 70 40-136 U/L Troponin I < 0.028 <0.028 NG/ML Total Protein 8.2 6.4-8.2 GM/DL Albumin 4.0 3.2-4.5 GM/DL TSH [place] Testing 2.63 0.35-4.94 UIU/ML Urine Color YELLOW Urine Clarity CLOUDY Urine pH 6.5 5-9 Urine Specific [place] 1.020 1.016-1.022 Urine Protein TRACE H NEGATIVE Urine Glucose (UA) NEGATIVE NEGATIVE Urine Ketones NEGATIVE NEGATIVE Urine Nitrite NEGATIVE NEGATIVE Urine Bilirubin NEGATIVE NEGATIVE Urine Urobilinogen 0.2 < = 1.0 MG/DL Urine Leukocyte Esterase 3+ H NEGATIVE Urine RBC (Auto) 2+ H NEGATIVE Urine RBC 25-50 H /HPF Urine WBC 50-100 H /HPF Urine Squamous Epithelial Cells 2-5 /HPF Urine Crystals NONE /LPF Urine Bacteria FEW H /HPF Urine Casts NONE /LPF Urine Mucus NEGATIVE /LPF Urine Culture Indicated YES My Orders Orders - DEBORAH PERALTA DO Ed Iv/Invasive Line Start (10/28/20 03:46) Ekg Tracing (10/28/20 03:46) Monitor-Rhythm Ecg Trace Only (10/28/20 03:46) Straight Cath For Spec.-Adult (10/28/20 03:46) Cbc With Automated Diff (10/28/20 03:46) Comprehensive Metabolic Panel (10/28/20 03:46) Magnesium (10/28/20 03:46) Thyroid Analyzer (10/28/20 03:46) Ua Culture If Indicated (10/28/20 03:46) Troponin I (10/28/20 03:46) Ct Head Wo-R/O Stroke (10/28/20 03:46) Chest 1 View, Ap/Pa Only (10/28/20 03:58) Urine Culture (10/28/20 04:16) Ceftriaxone (Rocephin) (10/28/20 04:45) Hydralazine Injection (Apresoline Inject (10/28/20 05:00) Medications Given in ED Current Medications Medications Dose Ordered Sig/Caridad Route Start Time Stop Time Status Last Admin Dose Admin Ceftriaxone Sodium 1000 mg/ Sterile Water 10 ml @ 200 mls/hr ONCE ONCE IV 10/28/20 04:45 10/28/20 04:48 DC 10/28/20 04:54 200 MLS/HR Hydralazine HCl 5 mg ONCE ONCE IV 10/28/20 05:00 10/28/20 05:01 DC 10/28/20 04:54 5 MG Vital Signs/I&O 10/28/20 10/28/20 03:46 06:23 Temp 36.3 Pulse 80 94 Resp 18 20 B/P (MAP) 180/87 (118) 177/86 Pulse Ox 97 98 O2 Delivery Room Air Room Air Capillary Refill : Less Than 3 Seconds Blood Pressure Mean: 118 Progress Note : Progress Note PT STATES SHE HAS A WALKER AT HOME DAUGHTER ARRIVES AND I DISCUSSED WITH HER THAT PT SHOULD HAVE SOMEONE STAY WITH HER FOR THE NEXT COUPLE OF DAYS UNTIL SHE IS FEELING BETTER, AND SHE REPORTS THAT SHE WILL ARRANGE FOR THIS 629--ATTEMPTING TO DISMISS PT, AND TECH WAS ASSISTING PT FROM BED TO WHEELCHAIR AND PT BECAME DIZZY AND HAD A NEAR-SYNCOPAL EPISODE. BP UP TO 190'S/100'S, HR IN 100'S, O2 SATS IN HIGH 90'S. PT IS ONLY COMPLAINING OF DIZZINESS AT THIS TIME. ECG Initial ECG Impression Date: Oct 28, 2020 Initial ECG Impression Time: 03:52 Initial ECG Rate: 76 Initial ECG Rhythm: Normal Sinus (IIVCD) Diagnostic Imaging Comments CXR--NO ACUTE PROCESS, PENDING RADIOLOGIST REVIEW CT HEAD--NO ACUTE PROCESS, PER [facility] VIA FAX AT 0601 Reviewed: Reviewed by Me Departure Communication (Admissions) 0639--SPOKE WITH DR. REINA, HOSPITALIST, ACCEPTS PT FOR ADMIT Impression Primary Impression: UTI (urinary tract infection) Additional Impressions: HTN (hypertension) Dizziness Postural dizziness with near syncope Disposition: HOME, SELF-CARE Condition: Stable Admissions Decision to Admit Reason: Admit from ER (General) Decision to Admit/Date: Oct 28, 2020 Time/Decision to Admit Time: 06:40 Departure-Patient Inst. Referrals: RENETTA ROMANO MD (PCP) Primary Care Physician Add. Discharge Instructions: All discharge instructions reviewed with patient and/or family. Voiced understanding. DEBORAH PERALTA DO Oct 28, 2020 04:45
[2020-10-28] MEDS ORDERED: hydrALAZINE (APESOLINE) 20 MG/ML VIAL IV ONE (05:00)
[2020-10-28] MEDS ORDERED: CEFD300C3 PO (06:15)
--- NOTE | 2020-10-28 06:54 | Diagnostic Imaging Report ---
PROCEDURE: CT head wo r/o stroke. TECHNIQUE: Multiple contiguous axial images were obtained through the brain without the use of intravenous contrast. Auto Exposure Controls were utilized during the CT exam to meet ALARA standards for radiation dose reduction. INDICATION: Dizziness. No relevant comparison. There is cerebral cortical atrophy present. The ventricular calibers while enlarged are congruent with the degree of sulcation and there is no evangelina hydrocephalus. The basilar cisterns are patent and there is no sulcal effacement. There were no findings of focal nor generalized cerebral edema and there is no evidence for an elevation of the intracerebral pressures. There is substantial but symmetrical periventricular white matter hypodensities, while nonspecific likely reflective of chronic small vessel sequelae. Orbits, sinuses and calvarium appeared nonacute. IMPRESSION: 1. No hemorrhage or edema. No acute finding. 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 2. Regarding comparison, I do have a study 02/28/2018 now, there has been no interval change. Dictated by: Dictated on workstation # [id number]
[2020-10-28 07:50] VITALS: BP 174/81
--- NOTE | 2020-10-28 07:51 | Diagnostic Imaging Report ---
INDICATION: Hypertension and dizziness FINDINGS: The heart is enlarged but no vascular congestion, failure pattern, effusion or pneumothorax. IMPRESSION: Prominence of the heart but no acute appearing abnormality. Dictated by: Dictated on workstation # [id number]
[2020-10-28] MEDS ORDERED: ONDANSETRON 4 MG/2 ML (SDV) Z0FRAN IV PRN ×2 (09:45→10:15)
[2020-10-28] MEDS ORDERED: BISACODYL 10 MG SUPP (DULCOLAX) PR PRN (10:15)
[2020-10-28] MEDS ORDERED: polyethylene glycoL POWDER 17 GM (MIRALAX) PACK PO PRN (10:15)
[2020-10-28] MEDS ORDERED: ANTACID SUSP 30 ML UDC (MYLANTA) PO PRN (10:15)
[2020-10-28] MEDS ORDERED: ONDANSETRON 4 MG (ZOFRAN) ORAL DISSOLVE TAB PO PRN (10:15)
--- NOTE | 2020-10-28 10:23 | History & Physical-Hospitalist ---
History of Present Illness HPI/Chief Complaint Yaneth Savage is an 89-year-old female with past medical history of hypertension, hypothyroidism, who presented with dizziness. She says that it all started last night. She says she went to the bathroom and got very dizzy when she was on the toilet. She reports having dysuria. She denies urinary frequency and urgency. She has chronic issues with incontinence which is unchanged. She denies fevers and chills. She reports having some nausea but no vomiting. She denies abdominal pain. She denies back pain. She has had issues with recurrent urinary tract infections. She has not had to be hospitalized for them except for once about 8 years ago. She denies any shortness of breath or cough. She denies any chest pain or palpitations. She denies diarrhea. She has lower extremity swelling which is chronic. Source: patient, family Exam Limitations: no limitations Date Seen 10/28/20 Time Seen by a Provider: 10:00 Attending Physician Leo Reina MD PCP Bobby Larry MD Referring Physician Date of Admission Oct 28, 2020 at 06:40 Home Medications & Allergies Home Medications Reviewed patient Home Medication Reconciliation performed by pharmacy medication reconciliations field map technician and/or nursing. Patients Allergies have been reviewed. Allergies Allergies Coded Allergies amoxicillin (Unverified Allergy, Mild, 08/20/06) Sulfa (Sulfonamide Antibiotics) (Verified Allergy, Unknown, RASH, 09/11/05) Past Uhmihom-Drcsip-Qedrwc Hx Patient Social History Tobacco Use?: No Use of E-Cig and/or Vaping dev: No Substance use?: No Alcohol Use?: No Pt feels they are or have been: No Immunizations Up To Date Second COVID19 Vaccination Shantanu: JUNE 2020 Tetanus Booster (TDap): Less Than 5 Years Hepatitis A: Yes Hepatitis B: Yes Current Status status: No Advance Directives: Yes Advance Directive Location: Copy placed in chart Communicates: Verbally Primary Language: Tunisian Preferred Spoken Language: Tunisian Is interpretation needed?: No Sensory deficits: Vision impairment Implanted or Applied Medical D: None Past Medical History Surgeries: Breast, Eye Surgery, Hysterectomy, Orthopedic, Thyroidectomy Hypertension Hypothyroidsim Blood Disorders: No Family Medical History No Pertinent Family Hx Review of Systems Constitutional: dizziness EENTM: no symptoms reported Respiratory: no symptoms reported Cardiovascular: no symptoms reported Gastrointestinal: nausea Genitourinary: dysuria Musculoskeletal: no symptoms reported Skin: no symptoms reported Psychiatric/Neurological: No Symptoms Reported Physical Exam Physical Exam Vital Signs Vital Signs - First Documented 10/28/20 03:46 Temp 36.3 Pulse 80 Resp 18 B/P (MAP) 180/87 (118) Pulse Ox 97 O2 Delivery Room Air Capillary Refill : Less Than 3 Seconds Height, Weight, BMI Height: 5'4.00" Weight: 140lbs. oz. 63.845491zr; 21.33 BMI Method:Estimated General Appearance: No Apparent Distress, WD/WN HEENT: PERRL/EOMI, Other (Dry mucous membranes) Respiratory: Lungs Clear, Normal Breath Sounds, No Respiratory Distress Cardiovascular: Regular Rate, Rhythm, No Edema, No Murmur Gastrointestinal: Normal Bowel Sounds, Non Tender, Soft Extremity: Normal Inspection, Non Tender, Pedal Edema Neurologic/Psychiatric: Alert, Oriented x3, No Motor/Sensory Deficits, Normal Mood/Affect Skin: Normal Color, Warm/Dry Lymphatic: No Adenopathy Results Results/Procedures Labs Laboratory Tests 10/28/20 03:53 Patient resulted labs reviewed. Imaging: Reviewed Imaging Report Assessment/Plan Admission Diagnosis Urinary tract infection Admission Status: Inpatient Order (span 2 midnights) Reason for Inpatient Admission: IV antibiotics IV fluids Therapy Assessment and Plan Urinary tract infection Orthostatic hypotension Debility UA consistent with UTI Not septic Urine culture pending Started on Rocephin IV fluids PT/OT May need inpatient rehabilitation vs nursing home placement HTN Continue decreased dose Losartan Hold Amlodpine Hydralazine as needed Hypothyroidism Continue Levothyroxine DVT prophylaxis: Lovenox Diagnosis/Problems Diagnosis/Problems (1) UTI (urinary tract infection) Status: Acute (2) Orthostatic hypotension Status: Acute (3) Debility Status: Acute (4) Advanced age Status: Chronic (5) Hypothyroidism Status: Chronic (6) HTN (hypertension) Status: Acute Qualifiers: Hypertension type: essential hypertension Qualified Codes: I10 - Essential (primary) hypertension LEO REINA MD Oct 28, 2020 10:23
[2020-10-28] MEDS ORDERED: LEVOTHYROXINE 100 MCG (LEVOTHROID) TAB PO ONE (10:30)
[2020-10-28] MEDS ORDERED: LOSARTAN 50 MG (COZAAR) TAB PO ONE (10:30)
--- NOTE | 2020-10-28 11:14 | Occupational Therapy Eval ---
OT Evaluation-General/PLF Medical Diagnosis Admission Date Oct 28, 2020 at 06:40 Medical Diagnosis: dizziness, UTI Onset Date: Oct 28, 2020 Therapy Diagnosis Therapy Diagnosis: weakness, decreased ADL status Height/Weight Height (Feet): 5 Height (Inches): 4.00 Weight (Pounds): 140 Precautions Precautions/Isolations: Fall Prevention Referral Physician: Ronn Referral Reason: Evaluation/Treatment Medical History Pertinent Medical History: HTN, Hypothroidism Current History Presents with dizziness Social History Home: Single Level Current Living Status: Alone Entry Into Home: Stairs With Railing Steps Into Home: 3 ADL-Prior Level of Function SCALE: Activities may be completed with or without assistive devices. 7-Eqhjxobysw-ewevrrf completes the activity by him/herself with no assistance from a helper. 5-Set-up or Clean-up Assistance-helper sets up or cleans up; patient completes activity. Concrete assists only prior to or following the activity. 4-Supervision or Touching Assistance-helper provides verbal cues and/or touching/steadying and/or contact guard assistance as patient completes activity. Assistance may be provided throughout the activity or intermittently. 3-Partial/Moderate Assistance-helper does LESS THAN HALF the effort. Concrete lifts, holds or supports trunk or limbs, but provides less than half the effort. 2-Substantial/Maximal Assistance-helper does MORE THAN HALF the effort. Concrete lifts or holds trunk or limbs and provides more than half the effort. 7-Kffodnmjy-tnpcbe does ALL the effort. Patient does none of the effort to complete the activity. Or, the assistance of 2 or more helpers is required for the patient to complete the activity. If activity was not attempted, code reason: 7-Patient Refused. 9-Not Applicable-not attempted and the patient did not perform the activity before the current illness, exacerbation or injury. 10-Not Attempted due to Environmental Limitations-(lack of equipment, weather restraints, etc.). 88-Not Attempted due to Medical Conditions or Safety Concerns. ADL PLOF Comments Pt reports IND with ADLs and functional mobility at PLOF, using walker. Self Care: Independent Functional Cognition: Independent DME/Equipment: Bath Chair, Grab Bars, Tub/Shower DME/Equipment Comments walker OT Current Status Subjective Pt laying in bed, 1 visitor present. Pt agreeable to OT tx. Mental Status/Objective Patient Orientation: Person, Place, Situation Current Glasses/Contacts: Yes Dentures/Partials: Yes Hand Dominance: Right Upper Extremity ROM WFL, BUE shoulder flexion to approx 100 degrees Upper Extremity Coordination WFL Upper Extremity Sensation WFL, pt denies tingling/numbness Upper Extremity Strength grossly 3+/5 BUEs ADL-Treatment Eating (QC): 6 (Per pt report) Oral Hygiene (QC): 7 Shower/Bathe Self (QC): 7 Upper Body Dressing (QC): 7 Lower Body Dressing (QC): 7 On/Off Footwear (QC): 7 Toileting Hygiene (QC): 3 (Min A, pt able to perform pericare, assist with washing buttocks.) Other Treatments Pt laying in bed, OT educated pt on purpose and benefit of OT, she verbalized understanding. Pt provided information about PLOF and home setup, and participated in UE screen. Pt states need to use bathroom, declines OOB activity due to dizziness. OT assisted pt onto bed ag, pt able to roll to side with CGA. Pt used bedpan, able to perform pericare after, pt rolled to side with CGA, assist to wipe buttocks. Pt washed face and combed hair with set up assistance. She declined further activity on this time requesting to rest. Post tx, pt laying in bed, call light in reach and all needs met. Education OT Patient Education: Correct positioning, Modified ADL techniques, Progress toward Goal/Update tx plan, Purpose of tx/functional activities, Rehab process Teaching Recipient: Patient Teaching Methods: Discussion Response to Teaching: Verbalize Understanding OT Senior Care Goals Senior Care Goals Time Frame: Nov 04, 2020 Eating (QC): 6 Oral Hygiene (QC): 6 Toileting Hygiene (QC): 6 Shower/Bathe Self (QC): 6 Upper Body Dressing (QC): 6 Lower Body Dressing (QC): 6 On/Off Footwear (QC): 6 Additional Goals: 1-Demonstrate ADL Tasks, 2-Verbalize Understanding, 3-ImproveStrength/Viet 1=Demonstrate adherence to instructed precautions during ADL tasks. 2=Patient will verbalize/demonstrate understanding of assistive devices/modifications for ADL. 3=Patient will improve strength/tolerance for activity to enable patient to perform ADL's. OT Education/Plan Problem List/Assessment Assessment: Decreased Activ Tolerance, Decreased UE Strength, Impaired Funct Balance, Impaired I ADL's, Impaired Self-Care Skills, Restricted Funct UE ROM Discharge Recommendations Plan/Recommendations: Continue POC Treatment Plan/Plan of Care Patient would benefit from OT for education, treatment and training to promote independence in ADL's, mobility, safety and/or upper extremity function for ADL's. Plan of Care: ADL Retraining, Functional Mobility, UE Funct Exercise/Act Treatment Duration: Nov 04, 2020 Frequency: 5 times per week Estimated Hrs Per Day: .25 hour per day Rehab Potential: Fair Time/GCodes Start Time: 10:35 Stop Time: 10:53 Total Time Billed (hr/min): 18 Billed Treatment Time 1, ADITI BUSTOS OT Oct 28, 2020 11:14
[2020-10-28 12:00] VITALS: BP 132/65
--- NOTE | 2020-10-28 12:04 | Physical Therapy Evaluation ---
PT Evaluation-General Medical Diagnosis Admission Date Oct 28, 2020 at 06:40 Medical Diagnosis: dizziness, UTI Onset Date: Oct 28, 2020 Therapy Diagnosis Therapy Diagnosis: Gait deficit, generalized weakness Height/Weight Height (Feet): 5 Height (Inches): 4.00 Weight (Pounds): 140 Precautions Precautions/Isolations: Fall Prevention Referral Physician: Ronn Reason for Referral: Evaluation/Treatment Medical History Pertinent Medical History: HTN, Hypothroidism Social History Home: Single Level Current Living Status: Alone Entry Into Home: Stairs With Railing PT Steps Into Home: 3 PT Steps Inside Home: 0 Prior Prior Level of Function SCALE: Activities may be completed with or without assistive devices. 4-Sgjxrpzvdh-zshncky completes the activity by him/herself with no assistance from a helper. 5-Set-up or Clean-up Assistance-helper sets up or cleans up; patient completes activity. [place] assists only prior to or following the activity. 4-Supervision or Touching Assistance-helper provides verbal cues and/or touching/steadying and/or contact guard assistance as patient completes activity. Assistance may be provided throughout the activity or intermittently. 3-Partial/Moderate Assistance-helper does LESS THAN HALF the effort. [place] lifts, holds or supports trunk or limbs, but provides less than half the effort. 2-Substantial/Maximal Assistance-helper does MORE THAN HALF the effort. [place] lifts or holds trunk or limbs and provides more than half the effort. 6-Dlpasgxzu-qhlyet does ALL the effort. Patient does none of the effort to complete the activity. Or, the assistance of 2 or more helpers is required for the patient to complete the activity. If activity was not attempted, code reason: 7-Patient Refused. 9-Not Applicable-not attempted and the patient did not perform the activity before the current illness, exacerbation or injury. 10-Not Attempted due to Environmental Limitations-(lack of equipment, weather restraints, etc.). 88-Not Attempted due to Medical Conditions or Safety Concerns. Bed Mobility: 6 Transfers (B,C,W/C): 6 Gait: 6 Stairs: 6 Wheelchair Mobility: 88 Indoor Mobility (Ambulation): Independent Stairs: Independent Prior Devices Use: Walker Prior Device Use: 4WW PT Evaluation-Current Subjective Patient reports she doesn't feel as dizzy when lying down, however upon sitting at edge of bed her dizziness increases a lot. Patient reports she needs to use the BR urgently but agrees to use the BSC. PT left room to find commode with call light activated. Upon return patient reports she was incontinent. Pain Numeric Pain Scale: 0-No Pain Pt/Family Goals To return home. Objective Patient Orientation: Person, Place, Time, Situation Neuromuscular (Tone, Coordination, Reflexes) Impaired due to dizziness and increasing difficulty of attempting the test. Sensory Hand Dominance: Right Transfers Roll Left to Right (QC): 3 Sit to Lying (QC): 3 Lying to Sitting/Side of Bed(Q: 3 Sit to Stand (QC): 3 Chair/Hlx-de-Xbvhj Xfer(QC): 2 Toilet Transfer (QC): 2 Car Transfer (QC): 88 Gait Does the Patient Walk?: No and Walking Goal IS indicated Mode of Locomotion: Both Anticipated Mode of Locomotion: Walk Walk 10 feet (QC): 1 Walk 50 ft with 2 Turns(QC): 1 Walk 150 ft (QC): 1 Walking 10ft/uneven surface-QC: 1 Distance: 3 feet Gait Assistive Device: FWW Comments/Gait Description Due to dizziness and inability to stand sans A, patient ambulates with hips flexed, forward trunk posture, short, choppy steps with poor LE control. Wheelchair Training Does the Pt Use a Wheelchair?: No Wheel 50 ft with 2 turns (QC): 88 Wheel 150 ft (QC): 88 Type of Wheelchair: N/A Stairs #of Steps: 1 1 Step (curb) (QC): 1 4 Steps (QC): 1 12 Steps (QC): 1 Walking Assistive Device: Walker Balance Sitting Static: Poor Sitting Dynamic: Poor Standing Static: Poor Standing Dynamic: Poor Picking up an Object (QC): 1 Assessment/Needs Patient demonstrates decreased core and LE strength, poor balance in sitting and standing, gait deficit, poor tolerance to activity due to reports of dizziness. Patient will benefit from Skilled Physical Therapy intervention to improve the above listed deficits. Rehab Potential: Fair Post Rehab Potential-Barriers: Patient lives alone, with 3 steps to enter house. Equipment Needs W/C, BSC, Shower Chair PT Short Term Goals Short Term Goals Time Frame: Nov 11, 2020 Roll Left & Right: 4 Sit to lyin Lying to sitting on side of be: 4 Sit to stand: 4 Chair/thd-er-ltyze transfer: 3 Toilet transfer: 3 Car transfer: 3 Walk 10 feet: 2 Walk 50 feet with two turns: 2 Walk 150 feet: 2 Walking 10ft on uneven surface: 2 1 step (curb): 2 4 steps: 2 12 steps: 2 Picking up objects: 3 Does pt use a wc or scooter: Yes Wheel 50ft w/2 turns: 4 Wheel 150 feet: 4 Type: Manual PT Nursing Home Goals Structural Steel Worker Goals PT Structural Steel Worker Goals Time Frame: Nov 25, 2020 Roll Left & Right (QC): 5 Sit to Lying (QC): 5 Lying-Sitting on Side/Bed(QC): 5 Sit to Stand (QC): 5 Chair/Kku-os-Mxhgc Xfer(QC): 5 Toilet Transfer (QC): 5 Car Transfer (QC): 5 Walk 10 feet (QC): 4 Walk 50ft with 2 Turns (QC): 4 Walk 150 ft (QC): 4 Walking 10ft on Uneven Surface: 4 1 Step (curb) (QC): 4 4 Steps (QC): 4 12 Steps (QC): 4 Picking up an Object (QC): 4 Does the Pt use WC or Scooter?: Yes Wheel 50 feet with 2 turns (QC: 6 Type: Manual Wheel 150 feet: 6 Type: Manual PT Plan Problem List Problem List: Activity Tolerance, Functional Strength, Safety, Balance, Gait, Transfer, Bed Mobility Treatment/Plan Treatment Plan: Continue Plan of Care Treatment Plan: Bed Mobility, Education, Functional Activity Viet, Functional Strength, Group Therapy, Gait, Safety, Therapeutic Exercise, Transfers Treatment Duration: Dec 30, 2020 Frequency: 6 times per week Estimated Hrs Per Day: .25 hour per day Safety Risks/Education Patient Education: Transfer Techniques Teaching Recipient: Patient, Family Teaching Methods: Demonstration, Discussion Response to Teaching: Verbalize Understanding Discharge Recommendations Therapy Discharge Recommendati: Post Acute PT Equpiment Recommendations-D/C: 3 in 1 Commode, Shower Chair Barriers to Progress Dizziness affecting all mobility. Time/GCodes Time In: 1047 Time Out: 1117 Total Billed Treatment Time: 30 Total Billed Treatment Visit, NESHA Patton JOHN A PT Oct 28, 2020 12:04
[2020-10-28] MEDS: LACTATED RINGERS 1,000 ML IV SCH ×3 (13:12→23:00)
[2020-10-28 16:30] VITALS: BP 166/84
[2020-10-28 20:25] VITALS: BP 148/69
[2020-10-28] MEDS: MELATONIN 3 MG TABLET PO PRN (20:44)
[2020-10-28] MEDS: SENNOSIDES 8.6 MG (SENOKOT) TAB PO SCH (20:44)
[2020-10-28] MEDS: DOCUSATE SODIUM 100 MG (COLACE) CAP PO SCH (20:44)
[2020-10-28] MEDS: ACETAMINOPHEN 325 MG TABLET PO PRN (20:44)
[2020-10-28 23:30] VITALS: BP 186/79
[2020-10-29 03:25] VITALS: BP 132/78
[2020-10-29] MEDS: LEVOTHYROXINE 100 MCG (LEVOTHROID) TAB PO SCH (04:42)
[2020-10-29] MEDS: cefTRIAXone 1,000 MG in WATER (STERILE) FOR INJECTION 10 ML IV SCH (04:42)
[2020-10-29 06:22] LABS: BASOPHILS % (AUTO) 0 % (0-10); EOSINOPHILS # (AUTO) 0.1 10^3/uL (0.0-0.3); EOSINOPHILS % (AUTO) 1 % (0-10); HEMATOCRIT 34 % (35-52); LYMPHOCYTES # (AUTO) 0.9 10^3/uL (1.0-4.0); LYMPHOCYTES % (AUTO) 11 % (12-44); MEAN CORPUSCULAR HEMOGLOBIN 32 pg (25-34); MEAN CORPUSCULAR HGB CONC 35 g/dL (32-36); MEAN CORPUSCULAR VOLUME 91 fL (80-99); MEAN PLATELET VOLUME 9.6 fL (9.0-12.2); MONOCYTES # (AUTO) 0.9 10^3/uL (0.0-1.0); MONOCYTES % (AUTO) 12 % (0-12); NEUTROPHILS # (AUTO) 5.8 10^3/uL (1.8-7.8); NEUTROPHILS % (AUTO) 75 % (42-75); PLATELET COUNT 287 10^3/uL (130-400); WHITE BLOOD COUNT 7.7 10^3/uL (4.3-11.0)
[2020-10-29 06:41] LABS: POTASSIUM 3.6 MMOL/L (3.6-5.0)
[2020-10-29 06:42] LABS: CALCIUM 8.9 MG/DL (8.5-10.1)
[2020-10-29 06:46] LABS: CREATININE SERUM 0.74 MG/DL (0.60-1.30)
[2020-10-29 08:00] VITALS: BP 179/82
[2020-10-29] MEDS: LACTATED RINGERS 1,000 ML IV SCH ×2 (08:26→18:06)
[2020-10-29] MEDS: ACETAMINOPHEN 325 MG TABLET PO PRN ×2 (08:26→23:53)
[2020-10-29] MEDS: DOCUSATE SODIUM 100 MG (COLACE) CAP PO SCH ×2 (08:27→20:45)
[2020-10-29] MEDS: LOSARTAN 50 MG (COZAAR) TAB PO SCH (08:27)
[2020-10-29] MEDS: SENNOSIDES 8.6 MG (SENOKOT) TAB PO SCH ×2 (08:27→20:45)
[2020-10-29] MEDS: ENOXAPARIN 40 MG/0.4 ML (LOVENOX) SYR SC SCH (08:49)
[2020-10-29] MEDS ORDERED: PHARMACY TO DOSE SQ SCH (09:00)
--- NOTE | 2020-10-29 10:58 | Progress Note - Hospitalist ---
Subjective HPI/CC On Admission Date Seen by Provider: Oct 29, 2020 Time Seen by Provider: 10:00 Yaneth Savage is an 89-year-old female with past medical history of hypertension, hypothyroidism, who presented with dizziness. She says that it all started last night. She says she went to the bathroom and got very dizzy when she was on the toilet. She reports having dysuria. She denies urinary frequency and urgency. She has chronic issues with incontinence which is unchanged. She denies fevers and chills. She reports having some nausea but no vomiting. She denies abdominal pain. She denies back pain. She has had issues with recurrent urinary tract infections. She has not had to be hospitalized for them except for once about 8 years ago. She denies any shortness of breath or cough. She denies any chest pain or palpitations. She denies diarrhea. She has lower extremity swelling which is chronic. Subjective/Events-last exam She is feeling better today. She is not as dizzy. She wants to return home. We discussed her weakness and how it is not safe at this time for her to return home. She is agreeable to doing some therapy/rehab either inpatient or at another facility prior to returning home. Her family is at the bedside and this is the route they would prefer as well. Objective Exam Vital Signs Vital Signs Date Time Temp Pulse Resp B/P (MAP) Pulse Ox O2 Delivery O2 Flow Rate FiO2 10/29/20 07:55 Room Air 10/29/20 07:00 79 10/29/20 03:25 36.7 20 132/78 (96) 96 Capillary Refill : Less Than 3 Seconds General Appearance: No Apparent Distress, WD/WN Respiratory: Lungs Clear, Normal Breath Sounds, No Respiratory Distress Cardiovascular: Regular Rate, Rhythm, No Edema, No Murmur Gastrointestinal: Normal Bowel Sounds, Non Tender, Soft Extremity: Normal Inspection, Pedal Edema Neurologic/Psychiatric: Alert, Oriented x3, Normal Mood/Affect, Motor Weakness Skin: Normal Color, Warm/Dry Results/Procedures Lab Laboratory Tests 10/29/20 05:17 Patient resulted labs reviewed. Imaging: Reviewed Imaging Report Assessment/Plan Assessment and Plan Assess & Plan/Chief Complaint Urinary tract infection Orthostatic hypotension Debility UA consistent with UTI Not septic Urine culture pending Continue Rocephin Continue gentle IV fluids PT/OT Will need inpatient rehabilitation vs jail placement on discharge IRU evaluation ordered HTN BP goal <150/90 Continue decreased dose Losartan Hold Amlodpine Hydralazine as needed Hypothyroidism Continue Levothyroxine DVT prophylaxis: Lovenox Diagnosis/Problems Diagnosis/Problems (1) UTI (urinary tract infection) Status: Acute (2) Orthostatic hypotension Status: Acute (3) Debility Status: Acute (4) Advanced age Status: Chronic (5) Hypothyroidism Status: Chronic (6) HTN (hypertension) Status: Acute Qualifiers: Hypertension type: essential hypertension Qualified Codes: I10 - Essential (primary) hypertension LEO REINA MD Oct 29, 2020 10:58
[2020-10-29 12:00] VITALS: BP 176/87
[2020-10-29 15:30] VITALS: BP 164/77
[2020-10-29 20:08] VITALS: BP 164/80
[2020-10-29 23:30] VITALS: BP 190/88
[2020-10-29] MEDS: hydrALAZINE (APESOLINE) 20 MG/ML VIAL IV PRN (23:48)
[2020-10-29] MEDS: MELATONIN 3 MG TABLET PO PRN (23:54)
[2020-10-30] MEDS: cefTRIAXone 1,000 MG in WATER (STERILE) FOR INJECTION 10 ML IV SCH (03:31)
[2020-10-30] MEDS: LACTATED RINGERS 1,000 ML IV SCH (03:31)
[2020-10-30] MEDS: hydrALAZINE (APESOLINE) 20 MG/ML VIAL IV PRN (03:57)
[2020-10-30 04:00] VITALS: BP 194/86
[2020-10-30] MEDS: LEVOTHYROXINE 100 MCG (LEVOTHROID) TAB PO SCH (05:17)
[2020-10-30 08:00] VITALS: BP 135/70
[2020-10-30] MEDS: DOCUSATE SODIUM 100 MG (COLACE) CAP PO SCH ×2 (08:32→20:23)
[2020-10-30] MEDS: SENNOSIDES 8.6 MG (SENOKOT) TAB PO SCH ×2 (08:32→20:23)
[2020-10-30] MEDS: LOSARTAN 50 MG (COZAAR) TAB PO SCH (08:32)
[2020-10-30] MEDS: ENOXAPARIN 40 MG/0.4 ML (LOVENOX) SYR SC SCH (08:33)
[2020-10-30] MEDS ORDERED: LEVO100T7 PO (09:27)
[2020-10-30] MEDS ORDERED: LORA10TA7 PO (09:27)
[2020-10-30] MEDS ORDERED: ESTR0.5T VG (09:27)
[2020-10-30] MEDS ORDERED: OMG1KC PO (09:27)
[2020-10-30] MEDS ORDERED: AMLO-250 PO (09:27)
[2020-10-30] MEDS ORDERED: ACET-2267 PO (09:27)
[2020-10-30] MEDS ORDERED: MAGN400T39 PO (09:27)
[2020-10-30] MEDS ORDERED: CALC-823 PO (09:27)
[2020-10-30] MEDS ORDERED: C,E,1CAP2 PO (09:27)
[2020-10-30] MEDS ORDERED: TRIA15OI9 TP (09:28)
--- NOTE | 2020-10-30 11:29 | Physical Therapy Daily Note ---
PT Daily Note-Current Subjective Patient in bed pre tx, agrees to PT, has no complaints of pain but has mild dizziness throughout tx, OT removes purewick. Appearance Patient in recliner post tx with nurse call, phone, tray, all needs met, legs elevated and family in room. Mental Status Patient Orientation: Person, Place Attachments: IV Transfers SCALE: Activities may be completed with or without assistive devices. 7-Gsmzmiodlj-algsplx completes the activity by him/herself with no assistance from a helper. 5-Set-up or Clean-up Assistance-helper sets up or cleans up; patient completes activity. [place] assists only prior to or following the activity. 4-Supervision or Touching Assistance-helper provides verbal cues and/or touching/steadying and/or contact guard assistance as patient completes activity. Assistance may be provided throughout the activity or intermittently. 3-Partial/Moderate Assistance-helper does LESS THAN HALF the effort. [place] lifts, holds or supports trunk or limbs, but provides less than half the effort. 2-Substantial/Maximal Assistance-helper does MORE THAN HALF the effort. [place] lifts or holds trunk or limbs and provides more than half the effort. 6-Dzlsmhxcy-btcdfm does ALL the effort. Patient does none of the effort to complete the activity. Or, the assistance of 2 or more helpers is required for the patient to complete the activity. If activity was not attempted, code reason: 7-Patient Refused. 9-Not Applicable-not attempted and the patient did not perform the activity before the current illness, exacerbation or injury. 10-Not Attempted due to Environmental Limitations-(lack of equipment, weather restraints, etc.). 88-Not Attempted due to Medical Conditions or Safety Concerns. Roll Left & Right (QC): 4 Lying to Sitting/Side of Bed(Q: 3 Sit to Stand (QC): 3 Chair/Ajb-up-Bwtdc Xfer(QC): 4 Gait Training Distance: 3' Gait Persons Needed: 1 Gait Assistive Device: FWW CGA, cues for safety and direction, slumped posture Exercises Seated Therapy Exercises: Ankle pumps, Long arc quads Seated Reps: 20 Treatments bed mobility and transfers, ambulation, LE exercise Assessment Current Status: Fair Progress improved transfers PT Short Term Goals Short Term Goals Time Frame: Nov 11, 2020 Roll Left & Right: 4 Sit to lyin Lying to sitting on side of be: 4 Sit to stand: 4 Chair/jjt-ii-ijegj transfer: 3 Toilet transfer: 3 Car transfer: 3 Walk 10 feet: 2 Walk 50 feet with two turns: 2 Walk 150 feet: 2 Walking 10ft on uneven surface: 2 1 step (curb): 2 4 steps: 2 12 steps: 2 Picking up objects: 3 Does pt use a wc or scooter: Yes Wheel 50ft w/2 turns: 4 Wheel 150 feet: 4 Type: Manual PT Uniform Force Captain Goals Uniform Force Captain Goals PT Longterm Goals Time Frame: Nov 25, 2020 Roll Left & Right (QC): 5 Sit to Lying (QC): 5 Lying-Sitting on Side/Bed(QC): 5 Sit to Stand (QC): 5 Chair/Por-zi-Sptpw Xfer(QC): 5 Toilet Transfer (QC): 5 Car Transfer (QC): 5 Walk 10 feet (QC): 4 Walk 50ft with 2 Turns (QC): 4 Walk 150 ft (QC): 4 Walking 10ft on Uneven Surface: 4 1 Step (curb) (QC): 4 4 Steps (QC): 4 12 Steps (QC): 4 Picking up an Object (QC): 4 Does the Pt use WC or Scooter?: Yes Wheel 50 feet with 2 turns (QC: 6 Type: Manual Wheel 150 feet: 6 Type: Manual PT Plan Problem List Problem List: Activity Tolerance, Functional Strength, Safety, Balance, Gait, Transfer, Bed Mobility, ROM Treatment/Plan Treatment Plan: Continue Plan of Care Treatment Plan: Bed Mobility, Education, Functional Activity Viet, Functional Strength, Group Therapy, Gait, Safety, Therapeutic Exercise, Transfers Treatment Duration: Dec 30, 2020 Frequency: 6 times per week Estimated Hrs Per Day: .25 hour per day Safety Risks/Education Patient Education: Gait Training, Transfer Techniques, Correct Positioning, Safety Issues Teaching Recipient: Patient Teaching Methods: Demonstration, Discussion Response to Teaching: Reinforcement Needed Time/GCodes Time In: 1105 Time Out: 1117 Total Billed Treatment Time: 12 Total Billed Treatment 1 visit FA 12' SARAH PARISI PT Oct 30, 2020 11:29
[2020-10-30 12:00] VITALS: BP 174/74
--- NOTE | 2020-10-30 12:03 | Occupational Ther Daily Note ---
OT Current Status-Daily Note Subjective Pt laying in bed, agreeable to OT tx. states she is less dizzy today ADL-Treatment Therapy Code Descriptions/Definitions Functional [place] Measure: 0=Not Assessed/NA 4=Minimal Assistance 1=Total Assistance 5=Supervision or Setup 2=Maximal Assistance 6=Modified [place] 3=Moderate Assistance 7=Complete IndependenceSCALE: Activities may be completed with or without assistive devices. 2-Ljtfstaidf-anqjhjw completes the activity by him/herself with no assistance from a helper. 5-Set-up or Clean-up Assistance-helper sets up or cleans up; patient completes activity. [place] assists only prior to or following the activity. 4-Supervision or Touching Assistance-helper provides verbal cues and/or touching/steadying and/or contact guard assistance as patient completes activity. Assistance may be provided throughout the activity or intermittently. 3-Partial/Moderate Assistance-helper does LESS THAN HALF the effort. [place] lifts, holds or supports trunk or limbs, but provides less than half the effort. 2-Substantial/Maximal Assistance-helper does MORE THAN HALF the effort. [place] lifts or holds trunk or limbs and provides more than half the effort. 0-Kxgowdchy-aptvzy does ALL the effort. Patient does none of the effort to complete the activity. Or, the assistance of 2 or more helpers is required for the patient to complete the activity. If activity was not attempted, code reason: 7-Patient Refused. 9-Not Applicable-not attempted and the patient did not perform the activity before the current illness, exacerbation or injury. 10-Not Attempted due to Environmental Limitations-(lack of equipment, weather restraints, etc.). 88-Not Attempted due to Medical Conditions or Safety Concerns. Toileting Hygiene (QC): 3 (Pt able to perform pericare, using purewick to urinate.) Other Treatment Pt laying in bed, OT asked pt if she needed to urinate prior to removing purewick, pt replied no. OT removed purewick, then pt indicates she does need to urinate, voiding urine on paper derrick. Pt able to use wet wipe to perform hygiene. Pt then transferred supine to sit EOB, and FWW to transfer to recliner, CGA with cues for positioning. OT placed purewick back. Pt performed x10 reps shoulder flexion, elbow flexion, elbow extension in order to increase BUE strength and activity tolerance. Post tx, pt in recliner, call light in reach and all needs met. Education OT Patient Education: Correct positioning, Modified ADL techniques, Progress toward Goal/Update tx plan, Purpose of tx/functional activities, Rehab process Teaching Recipient: Patient Teaching Methods: Discussion Response to Teaching: Verbalize Understanding OT Nursing Home Goals Storage Facility Rental Clerk Goals Time Frame: Nov 04, 2020 Eating (QC): 6 Oral Hygiene (QC): 6 Toileting Hygiene (QC): 6 Shower/Bathe Self (QC): 6 Upper Body Dressing (QC): 6 Lower Body Dressing (QC): 6 On/Off Footwear (QC): 6 Additional Goals: 1-Demonstrate ADL Tasks, 2-Verbalize Understanding, 3- ImproveStrength/Viet 1=Demonstrate adherence to instructed precautions during ADL tasks. 2=Patient will verbalize/demonstrate understanding of assistive devices/modifications for ADL. 3=Patient will improve strength/tolerance for activity to enable patient to perform ADL's. OT Education/Plan Problem List/Assessment Assessment: Decreased Activ Tolerance, Decreased UE Strength, Impaired Funct Balance, Impaired I ADL's, Impaired Self-Care Skills Discharge Recommendations Plan/Recommendations: Continue POC Treatment Plan/Plan of Care Patient would benefit from OT for education, treatment and training to promote independence in ADL's, mobility, safety and/or upper extremity function for ADL's. Plan of Care: ADL Retraining, Functional Mobility, UE Funct Exercise/Act Treatment Duration: Nov 04, 2020 Frequency: 5 times per week Estimated Hrs Per Day: .25 hour per day Rehab Potential: Fair Time/GCodes Start Time: 11:05 Stop Time: 11:17 Total Time Billed (hr/min): 12 Billed Treatment Time 1, ADL ADITI COLE OT Oct 30, 2020 12:03
--- NOTE | 2020-10-30 12:56 | Progress Note - Hospitalist ---
Subjective HPI/CC On Admission Date Seen by Provider: Oct 30, 2020 Time Seen by Provider: 13:00 Yaneth Savage is an 89-year-old female with past medical history of hypertension, hypothyroidism, who presented with dizziness. She says that it all started last night. She says she went to the bathroom and got very dizzy when she was on the toilet. She reports having dysuria. She denies urinary frequency and urgency. She has chronic issues with incontinence which is unchanged. She denies fevers and chills. She reports having some nausea but no vomiting. She denies abdominal pain. She denies back pain. She has had issues with recurrent urinary tract infections. She has not had to be hospitalized for them except for once about 8 years ago. She denies any shortness of breath or cough. She denies any chest pain or palpitations. She denies diarrhea. She has lower extremity swelling which is chronic. Subjective/Events-last exam Pt reports feeling well. No complaints. Has decided on [facility] for SNF upon discharge. Objective Exam Vital Signs Vital Signs Date Time Temp Pulse Resp B/P (MAP) Pulse Ox O2 Delivery O2 Flow Rate FiO2 10/30/20 12:00 36.6 93 18 174/74 (107) 95 Room Air Capillary Refill : Less Than 3 Seconds General Appearance: No Apparent Distress, Chronically ill, Thin Respiratory: Lungs Clear, No Respiratory Distress Cardiovascular: Regular Rate, Rhythm, No Murmur Neurologic/Psychiatric: Alert, Oriented x3 Results/Procedures Lab Patient resulted labs reviewed. Imaging: Reviewed Imaging Report Assessment/Plan Assessment and Plan Assess & Plan/Chief Complaint Urinary tract infection Orthostatic hypotension Debility UA consistent with UTI Not septic Urine culture pending Continue Rocephin PT/OT Agreeable to SNF, awaiting acceptance Need bed availability due to COVID inpatient surg HTN BP goal <150/90 Continue decreased dose Losartan Hold Amlodpine Hydralazine as needed Hypothyroidism Continue Levothyroxine DVT prophylaxis: MAEVE Redman MD Oct 30, 2020 12:56
[2020-10-30] MEDS ORDERED: PATIENT MAY USE OWN MEDS, ALL MC SCH (13:15)
[2020-10-30] MEDS ORDERED: ESTRADIOL 1 MG TAB (ESTRACE) VG SCH (13:30)
[2020-10-30] MEDS: ACETAMINOPHEN 325 MG TABLET PO PRN (14:51)
[2020-10-30 16:00] VITALS: BP 154/61
[2020-10-30 20:00] VITALS: BP 160/75
[2020-10-30] MEDS: ACETAMINOPHEN 500 MG TAB (TYLENOL) PO SCH (20:22)
[2020-10-30] MEDS: CALCIUM CARBONATE 500 MG (TUMS) TAB.CHEW PO SCH (20:22)
[2020-10-30] MEDS ORDERED: MULTIVIT W/MINERALS TAB (THERAGRAN M) PO SCH (21:00)
[2020-10-30] MEDS ORDERED: OMEGA 3 (FISH OIL) 1000 MG CAP PO SCH (21:00)
[2020-10-30] MEDS ORDERED: LORATADINE (CLARITIN) 10 MG TAB PO SCH (21:00)
[2020-10-31] VITALS: BP 172/80
[2020-10-31] MEDS: cefTRIAXone 1,000 MG in WATER (STERILE) FOR INJECTION 10 ML IV SCH (04:14)
[2020-10-31 04:15] VITALS: BP 153/80
[2020-10-31] MEDS: ACETAMINOPHEN 325 MG TABLET PO PRN (04:56)
[2020-10-31] MEDS: LEVOTHYROXINE 100 MCG (LEVOTHROID) TAB PO SCH (04:56)
[2020-10-31 07:07] VITALS: BP 179/87
[2020-10-31] MEDS ORDERED: MAGNESIUM OXIDE (MAG-OX)400 MG TAB PO SCH (08:00)
[2020-10-31] MEDS: SENNOSIDES 8.6 MG (SENOKOT) TAB PO SCH (08:07)
[2020-10-31] MEDS: CALCIUM CARBONATE 500 MG (TUMS) TAB.CHEW PO SCH (08:08)
[2020-10-31] MEDS: ACETAMINOPHEN 500 MG TAB (TYLENOL) PO SCH (08:08)
[2020-10-31] MEDS: LOSARTAN 50 MG (COZAAR) TAB PO SCH (08:08)
[2020-10-31] MEDS: DOCUSATE SODIUM 100 MG (COLACE) CAP PO SCH (08:08)
[2020-10-31] MEDS: ENOXAPARIN 40 MG/0.4 ML (LOVENOX) SYR SC SCH (08:09)
[2020-10-31] MEDS ORDERED: TRIAMCINOLONE 0.5% OINT (KENALOG) 15 GM TUBE TP SCH (09:00)
--- NOTE | 2020-10-31 09:31 | Discharge Summary ---
Diagnosis/Chief Complaint Date of Admission Oct 28, 2020 at 06:40 Date of Discharge Admission Diagnosis Urinary tract infection Primary Care Bobby Larry MD Discharge Diagnosis (1) UTI (urinary tract infection) Status: Acute (2) Orthostatic hypotension Status: Acute (3) Debility Status: Acute (4) Advanced age Status: Chronic (5) Hypothyroidism Status: Chronic (6) HTN (hypertension) Status: Acute Discharge Summary Discharge Physical Exam Allergies: Coded Allergies: amoxicillin (Unverified Allergy, Mild, 08/20/06) Sulfa (Sulfonamide Antibiotics) (Verified Allergy, Unknown, RASH, 09/11/05) Vitals & I&Os Vital Signs Date Time Temp Pulse Resp B/P (MAP) Pulse Ox O2 Delivery O2 Flow Rate FiO2 10/31/20 08:00 Room Air 10/31/20 07:07 37.6 88 20 179/87 (117) 95 Hospital Course Labs (last 24 hrs) Laboratory Tests 10/30/20 11:19: SARS-CoV-2 RNA (RT-PCR) Not Detected Microbiology 10/28/20 Urine Culture - Preliminary, Resulted Staphylococcus epidermidis Patient resulted labs reviewed. Imaging: Reviewed Imaging Report Discharge Home Medications: Active Scripts Active Reported Triamcinolone Acetonide 0.5% Ointment (Triamcinolone Acetonide) 15 Gm Oint 1 Applic TP DAILY Loratadine 10 Mg Tablet 10 Mg PO HS Fish Oil 1,000 mg Capsule (Chandler 3 Polyunsat Fatty Acids) 1,000 Mg Cap 1,000 Mg PO HS Magnesium (Magnesium Oxide) 400 Mg Tablet 400 Mg PO DAILY Tylenol Extra Strength (Acetaminophen) 500 Mg Tablet 500 Mg PO BID Ocuvite Adult 50 Plus Softgel (C,E,Zinc,Copper 24/Om3/Lut/Tiarra) 1 Each Capsule 1 Each PO HS Calcium (Calcium Carbonate) 500 Mg Tablet 500 Mg PO BID Amlodipine Besylate 5 Mg Tablet 5 Mg PO DAILY Levothyroxine Sodium 100 Mcg Tablet 100 Mcg PO DAILY Estradiol Tablet (Estradiol) 0.5 Mg Tablet 0.5 Mg VG MON,WED,FRI Losartan Potassium 100 Mg Tablet 100 Mg PO DAILY Instructions to patient/family Please see electronic discharge instructions given to patient. Problem Qualifiers (1) HTN (hypertension): Hypertension type: essential hypertension Qualified Codes: I10 - Essential (primary) hypertension MAEVE RAMESH MD Oct 31, 2020 09:31
[2020-10-31] MEDS ORDERED: LOSA50TA63 PO (09:33)
[2020-10-31] MEDS ORDERED: CEPH500T PO (09:37)
--- NOTE | 2020-10-31 09:44 | Discharge Inst-Skilled Nursing ---
Discharge Inst-Skilled NF Chief Complaint Yaneth Savage is an 89-year-old female with past medical history of hypertension, hypothyroidism, who presented with dizziness. She says that it all started last night. She says she went to the bathroom and got very dizzy when she was on the toilet. She reports having dysuria. She denies urinary f requency and urgency. She has chronic issues with incontinence which is unchanged. She denies fevers and chills. She reports having some nausea but no vomiting. She denies abdominal pain. She denies back pain. She has had issues with recurrent urinary tract infections. She has not had to be hospitalized for them except for once about 8 years ago. She denies any shortness of breath or cough. She denies any chest pain or palpitations. She denies diarrhea. She has lower extremity swelling which is chronic. Consult/Follow Up/Orders Skilled NF Admit to: [facility] Due to bed availability in the hospital, related to COVID 19 surge, the above mentioned member is appropriate and in need of intermediate home placement to continue with skilled therapies Certification (SNF) I certify that SNF services are required to be given on an inpatient basis because of the above named patient's need for intermediate care on a continuing basis for the conditions(s) for which he/she was receiving inpatient hospital services prior to his/her transfer to the SNF. Intermediate Facility Order: Nursing Services, Student Admissions Clerk-Evaluate & Treat, Physical Therapy-Evaluate & Treat Oxygen Delivery Method: Room Air Discharge Diet: Low Sodium Diet New & Resume Previous Orders Maeve Stone Oct 30, 2020 11:37 MAEVE STONE MD Oct 30, 2020 11:37
[2020-10-31 12:31] VITALS: BP 179/87
== END 2020-10-31 12:11 ==
LOC: EDUNIT# 03:42 → ER 03:43 → UNDOADMIN 06:40 → INTOOBSV 06:40 → 4TH 06:40
PROVIDERS: ADMIT Internal Medicine; ATTEND Internal Medicine
DX: N39.0 Urinary tract infection, site not specified (principal); I95.1 Orthostatic hypotension; R53.81 Other malaise; I10 Essential (primary) hypertension; E03.9 Hypothyroidism, unspecified; Z79.899 Other long term (current) drug therapy; Z79.890 Hormone replacement therapy
CPT/HCPCS: 36410; 51701; 70450; 71045; 76937; 80048; 80053; 81000; 83735; 84443; 84484; 85025 ×2; 87077; 87088; 87186; 87636; 93005; 93041; 97161; 97166; 97530 ×2; 97535; 99284; C1751; G0378; 36415; 96374; 96375

== ENCOUNTER 2021-08-07 02:03 | Emergency (ER) | payer MEDICARE ==
[~2021-08-07 02:03] MED LIST changes: +ACET-2267 PO; +AMLO-250 PO; +C,E,1CAP2 PO; +CALC-823 PO; +CEFD300C3 PO; +CEPH500T PO; +ESTR0.5T VG; +LEVO100T7 PO; +LORA10TA7 PO; +LOSA50TA63 PO; +MAGN400T39 PO; +OMG1KC PO; +TRIA15OI9 TP
[2021-08-07 03:09] LABS: BILIRUBIN,URINE NEGATIVE (NEGATIVE); CLARITY,URINE CLEAR; COLOR,URINE YELLOW; GLUCOSE, URINE (UA) NEGATIVE (NEGATIVE); KETONES,URINE NEGATIVE (NEGATIVE); LEUKOCYTE ESTERASE ,URINE 2+ (NEGATIVE); NITRITE,URINE NEGATIVE (NEGATIVE); PH,URINE 6.5 (5-9); PROTEIN,URINE 1+ (NEGATIVE)
[2021-08-07 03:12] LABS: BACTERIA,URINE LARGE /HPF
--- NOTE | 2021-08-07 03:43 | ED Fall/Injury ---
General Chief Complaint: Trauma-Non Activation Stated Complaint: FALL,HIT HEAD Nursing Triage Note: TO ED VIA POV AND W/C TO ROOM 6 WITH DAUGHTER. PT FROM [place], [place]. STAFF CALLED DAUGHTER AT 0110 AND TOLD HER PT WAS FOUND ON FLOOR IN ROOM. RIGHT EYE BRUISING NOTED ON ARRIVAL. PT IS NOT ON BLOOD THINNERS PER DAUGHTER. NO REPORT RECEIVED TO ER FROM FACILITY. HX DEMENTIA. Source: patient, family, old records Exam Limitations: no limitations History of Present Illness Date Seen by Provider: August 07, 2021 Time Seen by Provider: 02:16 Initial Comments Ms. Savage is a pleasant 89-year-old woman who presents to the emergency room by private vehicle accompanied by her daughter. She was found on the floor at [facility] with a contusion in the right periorbital region. Patient reports getting up in the night to go to the bathroom. She was not using her walker at the time. She normally does ambulate with a walker. She has not been steady with unassisted ambulation for several months according to her daughter. Patient denies any pain at this time except some mild pain in the right proximal thigh musculature. She seems to have normal range of motion and no pain with ro tation of the right hip. There is a significant contusion with ecchymosis surrounding the right eye. She denies any vision changes she is alert and able to answer questions appropriately. She does have some dementia at baseline according to her daughter. Patient denies any loss of consciousness. She has had a history of recurrent UTI. She does feel little dizzy after the fall. She has normal sinus rhythm on the monitor. She reports feeling well yesterday and in the night prior to falling. Allergies and Home Medications Allergies Coded Allergies: amoxicillin (Unverified Allergy, Mild, 08/20/06) Sulfa (Sulfonamide Antibiotics) (Verified Allergy, Unknown, RASH, 09/11/05) Patient Home Medication List Home Medication List Reviewed: Yes Acetaminophen (Tylenol Extra Strength) 500 Mg Tablet, 500 MG PO BID, (Reported) Entered as Reported by: RAFAEL NELSON on 10/30/20926 Amlodipine Besylate (Amlodipine Besylate) 5 Mg Tablet, 5 MG PO DAILY, (Reported) Entered as Reported by: RAFAEL NELSON on 10/30/20926 C,E,Zinc,Copper 24/Om3/Lut/Tiarra (Ocuvite Adult 50 Plus Softgel) 1 Each Capsule, 1 EACH PO HS, (Reported) Entered as Reported by: RAFAEL NELSON on 10/30/20926 Calcium Carbonate (Calcium) 500 Mg Tablet, 500 MG PO BID, (Reported) Entered as Reported by: RAFAEL NELSON on 10/30/20926 Cephalexin (Cephalexin) 500 Mg Tablet, 500 MG PO BID Prescribed by: MAEVE RAMESH on 10/31/20936 Estradiol (Estradiol Tablet) 0.5 Mg Tablet, 0.5 MG VG MON,WED,FRI, (Reported) Entered as Reported by: RAFAEL NELSON on 10/30/20926 Levothyroxine Sodium (Levothyroxine Sodium) 100 Mcg Tablet, 100 MCG PO DAILY, (Reported) Entered as Reported by: RAFAEL NELSON on 10/30/20926 Loratadine (Loratadine) 10 Mg Tablet, 10 MG PO HS, (Reported) Entered as Reported by: RAFAEL NELSON on 10/30/20926 Losartan Potassium (Losartan Potassium) 50 Mg Tablet, 50 MG PO DAILY Prescribed by: MAEVE RAMESH on 10/31/20932 Magnesium Oxide (Magnesium) 400 Mg Tablet, 400 MG PO DAILY, (Reported) Entered as Reported by: RAFAEL NELSON on 10/30/20926 Nitrofurantoin Monohyd/M-Cryst (Macrobid 100 mg Capsule) 100 Mg Capsule, 1 TAB PO BID Prescribed by: WAGNER ENCINAS on 08/07/21 0344 [place] 3 Polyunsat Fatty Acids (Fish Oil 1,000 mg Capsule) 1,000 Mg Cap, 1,000 MG PO HS, (Reported) Entered as Reported by: RAFAEL NELSON on 10/30/20926 Triamcinolone Acetonide (Triamcinolone Acetonide 0.5% Ointment) 15 Gm Oint, 1 APPLIC TP DAILY, (Reported) Entered as Reported by: RAFAEL NELSON on 10/30/20927 Review of Systems Review of Systems Constitutional: no symptoms reported Eyes: See HPI Ears, Nose, Mouth, Throat: no symptoms reported Respiratory: no symptoms reported Cardiovascular: no symptoms reported Gastrointestinal: no symptoms reported Genitourinary: see HPI : No Musculoskeletal: see HPI Skin: see HPI Psychiatric/Neurological: See HPI Past Nsxogel-Gzubfz-Vggqip Hx Patient Social History Tobacco Use?: No Use of E-Cig and/or Vaping dev: No Substance use?: No Alcohol Use?: No Immunizations Up To Date Influenza Vaccine Up-to-Date: Yes; Up-to-Date Past Medical History Surgery/Hospitalization HX: LEFT BREAST LUMPECTOMY Surgeries: Yes (T&A,HYST.,THYROIDECTOMY,TKR,BREAST SURGERY,CATARACTS,ORAL SURGERY) Breast, Eye Surgery, Hysterectomy, Orthopedic, Thyroidectomy Respiratory: No Cardiac: Yes (PT DENIES ANY CHEST PAIN,ANGINA,PALPATIONS,IRREGULAR HEART RATE,JAW OR ARM ) Hypertension Neurological: Yes Dementia : No Reproductive Disorders: No Genitourinary: Yes (Recurrent urinary tract infections) Gastrointestinal: No Musculoskeletal: Yes Endocrine: Yes Hypothyroidsim Psychosocial: Yes Blood Disorders: No Family Medical History No Pertinent Family Hx Physical Exam Vital Signs Vital Signs - First Documented 08/07/21 02:11 Temp 37.2 Pulse 90 Resp 16 B/P (MAP) 164/79 (107) Pulse Ox 92 O2 Delivery Room Air Capillary Refill : Less Than 3 Seconds Height, Weight, BMI Height: 5'4.00" Weight: 140lbs. oz. [id number]; 21.33 BMI Method:Estimated General Appearance: WD/WN, no apparent distress HEENT: PERRL/EOMI, other (Vision grossly normal, mild edema and notable ecchymosis in the right periorbital region) Neck: non-tender, normal inspection Cardiovascular: regular rate, rhythm, no edema, no murmur, other (Normal sinus rhythm on hospital monitor) Respiratory: lungs clear, normal breath sounds, no respiratory distress Gastrointestinal: normal bowel sounds, non tender, soft Extremities: normal inspection, no pedal edema, other (Mild tenderness in the proximal right thigh musculature. Minimal tenderness over the right hip. Range of motion normal. No pain with rotation of the right hip) Neurologic/Psychiatric: cycle director II-XII nml as tested, no motor/sensory deficits, alert, normal mood/affect Skin: normal color, warm/dry, ecchymosis Robin Coma Score Best Eye Response: (4) Open Spontaneously Best Verbal Response: (5) Oriented Best Motor Response: (6) Obeys Commands Robin Total: 15 Progress/Results/Core Measures Results/Orders Lab Results Laboratory Tests Test 08/07/21 03:03 Range/Units Urine Color YELLOW Urine Clarity CLEAR Urine pH 6.5 5-9 Urine Specific [place] 1.010 L 1.016-1.022 Urine Protein 1+ H NEGATIVE Urine Glucose (UA) NEGATIVE NEGATIVE Urine Ketones NEGATIVE NEGATIVE Urine Nitrite NEGATIVE NEGATIVE Urine Bilirubin NEGATIVE NEGATIVE Urine Urobilinogen 0.2 < = 1.0 MG/DL Urine Leukocyte Esterase 2+ H NEGATIVE Urine RBC (Auto) 2+ H NEGATIVE Urine RBC 10-25 H /HPF Urine WBC 10-25 H /HPF Urine Squamous Epithelial Cells 2-5 /HPF Urine Crystals NONE /LPF Urine Bacteria LARGE H /HPF Urine Casts NONE /LPF Urine Mucus NEGATIVE /LPF Urine Culture Indicated YES My Orders Orders - WAGNER BOWIE MD Ct Head/Cervical Spine Wo (08/07/21 02:26) Femur, Right, 2 Views (08/07/21 02:26) Pelvis (08/07/21 02:26) Ua Culture If Indicated (08/07/21 02:26) Urine Culture (08/07/21 03:03) Nitrofurantoin Capsule,Macro (Macrobid C (08/07/21 03:45) Medications Given in ED Vital Signs/I&O 08/07/21 08/07/21 02:11 03:44 Temp 37.2 37.0 Pulse 90 85 Resp 16 16 B/P (MAP) 164/79 (107) 156/89 Pulse Ox 92 94 O2 Delivery Room Air Room Air Blood Pressure Mean: 107 Progress Progress Note : Progress Note No serious injuries were identified on work-up. Urinary tract infection was suggested by urinalysis. Patient was treated with nitrofurantoin. Diagnostic Imaging Diagonstic Imaging: Xray Plain Films/CT/US/NM/MRI: pelvis, femur Comments X-rays of the pelvis and right femur reviewed by me. Report was not available at time of visit. No acute abnormalities were appreciated. Diagonstic Imaging: CT Plain Films/CT/US/NM/MRI: c-spine, head Comments CT head and C-spine stat rad report reviewed. No acute injuries identified. Departure Impression Primary Impression: Fall on same level Qualified Codes: W18.30XA - Fall on same level, unspecified, initial encounter Additional Impressions: Urinary tract infection Qualified Codes: N39.0 - Urinary tract infection, site not specified Facial contusion Qualified Codes: S00.83XA - Contusion of other part of head, initial encounter Disposition: 01 HOME, SELF-CARE Condition: Stable Departure-Patient Inst. Decision time for Depature: 03:41 Referrals: RENETTA ROMANO MD (PCP/Family) Primary Care Physician Patient Instructions: Minor Head Injury, Adult ED, Urinary Tract Infection, Adult ED Add. Discharge Instructions: Drink plenty of clear liquids to stay well-hydrated and to help flush out urinar y tract infection. Follow-up on urine culture results by of this week. Contact your primary care provider to obtain and review urine culture results. For the next 2 to 3 days do not attempt to get up and walk on your own. Always have an assistant brand manager with you during this time to help prevent falls and ensure your safety while you get up and walk. Always walk with a walker. Return to the ER if you have worsening symptoms. Call your primary care provider with questions or concerns. All discharge instructions reviewed with patient and/or family. Voiced understanding. Scripts Nitrofurantoin Monohyd/M-Cryst (Macrobid 100 mg Capsule) 100 Mg Capsule 1 TAB PO BID, #14 CAP Prov: WAGNER BOWIE MD 08/07/21 Copy Copies To 1: RENETTA ROMANO MD, JOSHUA T MD August 07, 2021 03:43
[2021-08-07 03:44] VITALS: BP 156/89
[2021-08-07] MEDS ORDERED: NITR-65 PO (03:44)
[2021-08-07] MEDS ORDERED: NITROFURANTOIN 100 MG (MACROBID) CAPSULE PO ONE (03:45)
--- NOTE | 2021-08-07 06:22 | Diagnostic Imaging Report ---
PROCEDURE: CT head and CT cervical spine without contrast. TECHNIQUE: Multiple contiguous axial images were obtained through the brain and cervical spine without the use of intravenous contrast. Sagittal and coronal reformations through the cervical spine were then performed. Auto Exposure Controls were utilized during the CT exam to meet ALARA standards for radiation dose reduction. INDICATION: Fall with head and neck pain. Comparison is made with prior exam of 10/28/2020. FINDINGS: There is prominence of the ventricles and sulci. There is moderate chronic microvascular ischemic disease. There is no hydrocephalus. There is no midline shift. There is no mass, hemorrhage or extra-axial fluid collection. Calvarium is intact. Sinuses and mastoid air cells are clear. There is diffuse cervical spondylosis and multilevel degenerative disc disease. The vertebral body heights are well-maintained. There is no fracture or traumatic subluxation. The odontoid is intact and lateral masses are well aligned. Prevertebral soft tissues are within normal limits. Lung apices are clear. IMPRESSION: Atrophy and chronic microvascular ischemic disease, however, no acute intracranial abnormality Moderately severe diffuse cervical spondylosis and multilevel degenerative disc disease without acute fracture or traumatic subluxation. Dictated by: Dictated on workstation # [id number]
--- NOTE | 2021-08-07 08:08 | Diagnostic Imaging Report ---
INDICATION: Pain COMPARISON: Imaging from the same date TECHNIQUE: 4 radiographs of the right femur dated 08/07/2021 FINDINGS: Right total knee arthroplasty is identified without evidence of hardware complication. No acute fracture or dislocation. No destructive osseous process. Minimal degenerative changes within the right hip. Right femoral head maintains normal shape and contour. Mild background vascular calcifications. IMPRESSION: Right total knee arthroplasty and mild degenerative changes without evidence of acute osseous abnormality or hardware complication. Dictated by: Dictated on workstation # [id number]
--- NOTE | 2021-08-07 08:09 | Diagnostic Imaging Report ---
Indication: Pelvic pain COMPARISON: Imaging from the same date TECHNIQUE: Single radiograph of pelvis dated 08/07/2021 FINDINGS: [place] left curvature of the partially visualized lower lumbar spine with associated significant degenerative changes. Mild degenerative changes bilateral sacroiliac joints, though the sacroiliac joints appear intact. No acute fracture or dislocation. No destructive osseous process. Background vascular calcification and phleboliths are present. IMPRESSION: No acute osseous abnormality with scattered degenerative changes and curvature of the spine. Dictated by: Dictated on workstation # [id number]
== END 2021-08-07 03:50 | disposition home or self-care (01) ==
LOC: EDUNIT# 02:03 → ER 02:06
DX: S00.11XA Contusion of right eyelid and periocular area, initial encounter (principal); N39.0 Urinary tract infection, site not specified; M25.551 Pain in right hip; M79.651 Pain in right thigh; F03.90 Unspecified dementia, unspecified severity, without behavioral disturbance, psychotic disturbance, mood disturbance, and anxiety; W18.30XA Fall on same level, unspecified, initial encounter
CPT/HCPCS: 70450; 72125; 72170; 73552; 81000; 87088

== ENCOUNTER 2021-09-05 14:05 | Inpatient (IN) | payer MEDICARE ==
[~2021-09-05] VITALS: Ht 157.5 cm; Wt 62.6 kg
[~2021-09-05 14:05] MED LIST changes: +NITR-65 PO
[2021-09-05] MEDS ORDERED: ACETAMINOPHEN 500 MG TAB (TYLENOL) PO PRN (15:00)
[2021-09-05] MEDS: LACTATED RINGERS 2,000 ML IV SCH ×2 (15:15→22:38)
[2021-09-05 15:30] VITALS: BP 134/67
[2021-09-05 15:31] LABS: BASOPHILS % (AUTO) 0 % (0-10); EOSINOPHILS # (AUTO) 0.2 10^3/uL (0.0-0.3); EOSINOPHILS % (AUTO) 3 % (0-10); HEMATOCRIT 35 % (35-52); HEMOGLOBIN 11.8 g/dL (11.5-16.0); LYMPHOCYTES # (AUTO) 0.8 X 10^3 (1.0-4.0); LYMPHOCYTES % (AUTO) 11 % (12-44); MEAN CORPUSCULAR HEMOGLOBIN 31 pg (25-34); MEAN CORPUSCULAR HGB CONC 34 g/dL (32-36); MEAN CORPUSCULAR VOLUME 91 fL (80-99); MEAN PLATELET VOLUME 9.1 fL (9.0-12.2); MONOCYTES # (AUTO) 1.1 X 10^3 (0.0-1.0); MONOCYTES % (AUTO) 14 % (0-12); NEUTROPHILS # (AUTO) 5.3 X 10^3 (1.8-7.8); NEUTROPHILS % (AUTO) 71 % (42-75); PLATELET COUNT 292 10^3/uL (130-400); WHITE BLOOD COUNT 7.5 10^3/uL (4.3-11.0)
[2021-09-05 15:44] LABS: POTASSIUM 4.3 MMOL/L (3.6-5.0)
[2021-09-05 15:45] LABS: CALCIUM 9.6 MG/DL (8.5-10.1)
[2021-09-05 15:46] LABS: TOTAL PROTEIN 8.1 GM/DL (6.4-8.2)
[2021-09-05 15:48] LABS: BILIRUBIN,TOTAL 0.6 MG/DL (0.1-1.0)
[2021-09-05 15:50] LABS: CREATININE SERUM 1.09 MG/DL (0.60-1.30)
[2021-09-05 19:28] VITALS: BP 190/87
[2021-09-05 20:01] VITALS: BP 151/70
--- NOTE | 2021-09-05 21:29 | History & Physical-Hospitalist ---
History of Present Illness HPI/Chief Complaint Was seen in the office after apparently falling out of bed. She does not recall what happened but was found by halfway staff at [facility]. She was more confused than baseline. She has had a history of frequent urinary tract infection 1 episode qualifying for sepsis requiring a short hospitalization so staff obtained a UA which did reveal too numerous to count white cells and 1+ bacteria this morning. Keturah comes with her daughter today who states that she has been more confused than baseline and appears weaker with poor appetite. This has been for the past several days. She has had urinary incontinence which is increased denies dysuria flank or abdominal pain. She was able to answer simple questions but it appeared fatigued. She denied night sweats chills or fever. The last UA that had a positive culture result was done in June of this year revealing Klebsiella oxytoca ESBL positive. Only oral option was Macrobid which the patient does not tolerate. Date Seen 09/05/21 Time Seen by a Provider: 11:00 Attending Physician Renetta Romano MD PCP Admitting Physician: Vanessa Stone MD Attending Physician: Vanessa Stone MD Referring Physician Date of Admission Sep 05, 2021 at 14:22 Home Medications & Allergies Home Medications Reviewed patient Home Medication Reconciliation performed by pharmacy medication reconciliations it field technician and/or nursing. Patients Allergies have been reviewed. Allergies Allergies Coded Allergies amoxicillin (Unverified Allergy, Mild, 08/20/06) Sulfa (Sulfonamide Antibiotics) (Verified Allergy, Unknown, RASH, 09/11/05) Past Wxsrezr-Yjobzy-Xnvtyc Hx Patient Social History Tobacco Use?: No Use of E-Cig and/or Vaping dev: No Substance use?: No Alcohol Use?: No Pt feels they are or have been: No Immunizations Up To Date First/Initial COVID19 Vaccinat: JUNE 2020 Second COVID19 Vaccination Shantanu: JUNE 2020 Tetanus Booster (TDap): Less Than 5 Years Hepatitis A: Yes Hepatitis B: Yes Current Status status: No status: No Advance Directives: Yes Advance Directive Location: Family to bring in copy Communicates: Verbally Primary Language: Slovak Preferred Spoken Language: Slovak Is interpretation needed?: No Sensory deficits: Vision impairment Implanted or Applied Medical D: Orthopedic hardware Past Medical History Surgeries: Breast, Eye Surgery, Hysterectomy, Orthopedic, Thyroidectomy Hypertension Dementia Hypothyroidsim Blood Disorders: No Family Medical History No Pertinent Family Hx Review of Systems Constitutional: see HPI Physical Exam Physical Exam Vital Signs Vital Signs - First Documented 09/05/21 14:40 Temp 37.1 Pulse 76 Resp 18 Pulse Ox 95 O2 Delivery Room Air Capillary Refill : Height, Weight, BMI Height: 5'4.00" Weight: 140lbs. oz. 63.328332or; 25.15 BMI Method:Estimated General Appearance: Chronically ill HEENT: Pale Conjunctivae (L), Pale Conjunctivae (R) Respiratory: Chest Non Tender, Lungs Clear, Normal Breath Sounds, No Accessory Muscle Use, No Respiratory Distress Cardiovascular: Regular Rate, Rhythm, No Edema, No Gallop, No JVD, Normal Peripheral Pulses, Systolic Murmur Gastrointestinal: Normal Bowel Sounds, No Organomegaly, No Pulsatile Mass, Non Tender, Soft Extremity: Normal Capillary Refill, Normal Inspection, Normal Range of Motion, Non Tender, No Calf Tenderness, No Pedal Edema Skin: Warm/Dry Results Results/Procedures Labs Laboratory Tests 09/05/21 15:25 Patient resulted labs reviewed. Assessment/Plan Admission Diagnosis A/P 1. UTI with at least SIRS cannot rule out sepsis not severe with exace rbation of underlying Alzheimer's dementia with history of recent ESBL positive Klebsiella we will admit and initiate meropenem she does have a penicillin allergy and also an allergy to Keflex which caused diffuse rash when given for UTI earlier this year. 2. Alzheimer's dementia per patient and daughters wish continue DNR status. 3. Dehydration secondary #1 we will initiate lactated Ringer's. 4. Hypertension we will hold antihypertensives for now but will likely need to go back on home medications which include amlodipine 5 mg daily and losartan 50 mg daily. 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
[2021-09-05] MEDS: MEROPENEM 500 MG/NS 100 ML IVPB IV SCH ×2 (22:37)
[2021-09-05 23:06] VITALS: BP 159/77
[2021-09-06] MEDS: LACTATED RINGERS 1,000 ML IV SCH ×4 (02:23→23:19)
[2021-09-06 03:44] VITALS: BP 164/78
[2021-09-06 05:59] LABS: HEMATOCRIT 35 % (35-52); MEAN CORPUSCULAR HEMOGLOBIN 31 pg (25-34); MEAN CORPUSCULAR HGB CONC 35 g/dL (32-36); MEAN CORPUSCULAR VOLUME 89 fL (80-99); MEAN PLATELET VOLUME 8.8 fL (9.0-12.2); PLATELET COUNT 258 10^3/uL (130-400); WHITE BLOOD COUNT 7.4 10^3/uL (4.3-11.0)
[2021-09-06] MEDS: LEVOTHYROXINE 100 MCG (LEVOTHROID) TAB PO SCH (06:13)
[2021-09-06] MEDS: MEROPENEM 500 MG/NS 100 ML IVPB IV SCH ×6 (06:13→20:26)
[2021-09-06 06:18] LABS: POTASSIUM 3.6 MMOL/L (3.6-5.0)
[2021-09-06 06:24] LABS: CREATININE SERUM 0.77 MG/DL (0.60-1.30)
[2021-09-06 08:21] VITALS: BP 170/82
[2021-09-06] MEDS: LOSARTAN 50 MG (COZAAR) TAB PO SCH (09:08)
[2021-09-06] MEDS ORDERED: LOSA100T57 PO (10:04)
[2021-09-06] MEDS ORDERED: CALC500T7 PO (10:04)
[2021-09-06] MEDS ORDERED: MAGN250T13 PO (10:04)
[2021-09-06] MEDS ORDERED: HYDR26CR2 TP (10:04)
[2021-09-06] MEDS ORDERED: GUAI600T99 PO (10:04)
[2021-09-06] MEDS ORDERED: CALC-1037 PO (10:04)
[2021-09-06] MEDS ORDERED: ZINC56CR2 TP (10:04)
[2021-09-06] MEDS ORDERED: FISH OIL 2000 MG PO (10:04)
[2021-09-06] MEDS ORDERED: TRIA15CR TP (10:04)
[2021-09-06] MEDS ORDERED: LIDO76.5 TP (10:04)
[2021-09-06] MEDS ORDERED: CETI-458 PO (10:04)
[2021-09-06] MEDS ORDERED: fentaNYL INJ 100 MCG/2 ML AMP IVP PRN (10:15)
[2021-09-06] MEDS ORDERED: HYDROCORTISONE 1% CREAM 30 GM TUBE TP PRN (10:30)
[2021-09-06] MEDS ORDERED: CALCIUM CARBONATE 500 MG (TUMS) TAB.CHEW PO PRN (10:30)
[2021-09-06] MEDS ORDERED: guaiFENesin (MUCINEX) 600 MG TAB PO PRN (10:30)
[2021-09-06] MEDS ORDERED: TRIAMCINOLONE 0.5% CR (KENALOG) 15 GM TUBE TP PRN (10:30)
--- NOTE | 2021-09-06 11:22 | Physical Therapy Evaluation ---
PT Evaluation-General Medical Diagnosis Admission Date Sep 05, 2021 at 14:22 Medical Diagnosis: UTI Onset Date: Sep 05, 2021 Therapy Diagnosis Therapy Diagnosis: debility Height/Weight Height (Feet): 5 Height (Inches): 4.00 Weight (Pounds): 140 Precautions Precautions/Isolations: Fall Prevention, Standard Precautions, Pressure Ulcer Referral Physician: Chase Reason for Referral: Evaluation/Treatment Medical History Pertinent Medical History: Dementia, HTN, Hypothroidism Current History Direct admit from Office secondary to falling OOB and increase confusion Reviewed History: Yes Social History Home: Assisted Living Prior Prior Level of Function SCALE: Activities may be completed with or without assistive devices. 4-Btgpdgcvso-uzfnzny completes the activity by him/herself with no assistance from a helper. 5-Set-up or Clean-up Assistance-helper sets up or cleans up; patient completes activity. [place] assists only prior to or following the activity. 4-Supervision or Touching Assistance-helper provides verbal cues and/or touching/steadying and/or contact guard assistance as patient completes activity. Assistance may be provided throughout the activity or intermittently. 3-Partial/Moderate Assistance-helper does LESS THAN HALF the effort. [place] lifts, holds or supports trunk or limbs, but provides less than half the effort. 2-Substantial/Maximal Assistance-helper does MORE THAN HALF the effort. [place] lifts or holds trunk or limbs and provides more than half the effort. 9-Nesztogjc-hgwxxt does ALL the effort. Patient does none of the effort to complete the activity. Or, the assistance of 2 or more helpers is required for the patient to complete the activity. If activity was not attempted, code reason: 7-Patient Refused. 9-Not Applicable-not attempted and the patient did not perform the activity before the current illness, exacerbation or injury. 10-Not Attempted due to Environmental Limitations-(lack of equipment, weather restraints, etc.). 88-Not Attempted due to Medical Conditions or Safety Concerns. Bed Mobility: 4 Transfers (B,C,W/C): 4 Gait: 4 Indoor Mobility (Ambulation): Independent Stairs: Not Applicalbe Prior Devices Use: Walker (4WW) PT Evaluation-Current Subjective Patient agrees to PT. Objective Patient Orientation: Person, Time, Situation Attachments: IV ROM/Strength ROM Lower Extremities bilateral LE WFL Strength Lower Extremities 3/5 grossly bilateral LE Integumentary/Posture Bladder Incontinence: Yes Posture slightly kyphotic Neuromuscular (Tone, Coordination, Reflexes) grossly intact Sensory Vision: Wears Glasses Hearing: Impaired Transfers Sit to Stand (QC): 4 Gait Mode of Locomotion: Walk Anticipated Mode of Locomotion: Walk Walk 10 feet (QC): 4 Walk 50 ft with 2 Turns(QC): 4 Walk 150 ft (QC): 4 Distance: 400' Gait Assistive Device: Walker 4 Wheeled Comments/Gait Description slow, steady gait sequence Balance Sitting Static: Normal Sitting Dynamic: Normal Standing Static: Good Standing Dynamic: Good Assessment/Needs 89 y.o. female, will benefit from short term skilled PT to address functional strength and mobility to improve current LOF to safely return to AL at maximum LOF. Rehab Potential: Fair PT Circuit Breaker Supervisor Goals Group Home Goals PT Circuit Breaker Supervisor Goals Time Frame: Sep 15, 2021 Roll Left & Right (QC): 5 Sit to Lying (QC): 5 Lying-Sitting on Side/Bed(QC): 5 Sit to Stand (QC): 5 Chair/Rdx-co-[place] Xfer(QC): 5 Toilet Transfer (QC): 5 Walk 10 feet (QC): 5 Walk 50ft with 2 Turns (QC): 5 Walk 150 ft (QC): 5 PT Plan Problem List Problem List: Activity Tolerance, Functional Strength, Safety, Balance, Gait, Transfer, Bed Mobility Treatment/Plan Treatment Plan: Continue Plan of Care Treatment Plan: Bed Mobility, Education, Functional Activity Viet, Functional Strength, Gait, Safety, Therapeutic Exercise, Transfers Treatment Duration: Sep 15, 2021 Frequency: 6 times per week Estimated Hrs Per Day: .25 hour per day Time/GCodes Time In: 1100 Time Out: 1114 Total Billed Treatment Time: 14 Total Billed Treatment 1 visit EVMod 14 min KAMERON BUSCH PT Sep 06, 2021 11:22
--- NOTE | 2021-09-06 11:32 | Progress Note - Hospitalist ---
Subjective HPI/CC On Admission Date Seen by Provider: Sep 06, 2021 Was seen in the office after apparently falling out of bed. She does not recall what happened but was found by assisted staff at [facility]. She was more confused than baseline. She has had a history of frequent urinary tract infection 1 episode qualifying for sepsis requiring a short hospitalization so staff obtained a UA which did reveal too numerous to count white cells and 1+ bacteria this morning. Keturah comes with her daughter today who states that she has been more confused than baseline and appears weaker with poor appetite. This has been for the past several days. She has had urinary incontinence which is increased denies dysuria flank or abdominal pa in. She was able to answer simple questions but it appeared fatigued. She denied night sweats chills or fever. The last UA that had a positive culture result was done in June of this year revealing Klebsiella oxytoca ESBL positive. Only oral option was Macrobid which the patient does not tolerate. Subjective/Events-last exam Pt reports doing much better today. No complaints. Feeling much better than yesterday. Objective Exam Vital Signs Vital Signs Date Time Temp Pulse Resp B/P (MAP) Pulse Ox O2 Delivery O2 Flow Rate FiO2 09/06/21 08:21 37.0 80 18 170/82 (111) 95 Room Air Capillary Refill : General Appearance: No Apparent Distress, WD/WN Respiratory: Lungs Clear, No Respiratory Distress Cardiovascular: Regular Rate, Rhythm, No Murmur Gastrointestinal: Normal Bowel Sounds, Non Tender, Soft Neurologic/Psychiatric: Alert, Oriented x3 Results/Procedures Lab Laboratory Tests 09/05/21 15:25 09/06/21 05:51 Patient resulted labs reviewed. Assessment/Plan Assessment and Plan Assess & Plan/Chief Complaint A/P 1. UTI- Await cultures from [facility], continue IV abx 2. Alzheimer's dementia per patient and daughters wish continue DNR status 3. Dehydration - resolved, DC IVF 4. 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
[2021-09-06 11:51] VITALS: BP 175/75
[2021-09-06 15:45] VITALS: BP 164/66
[2021-09-06] MEDS ORDERED: amLODIPine 5 MG (NORVASC) TAB PO ONE (16:00)
[2021-09-06] MEDS ORDERED: amLODIPine 5 MG (NORVASC) TAB ONE (16:01)
[2021-09-06] MEDS ORDERED: ZINC OXIDE 16% OINT (BUTT PASTE) 57 GM TUBE TOP PRN (18:45)
[2021-09-06 18:56] LABS: BILIRUBIN,URINE NEGATIVE (NEGATIVE); CLARITY,URINE SL CLOUDY; COLOR,URINE YELLOW; GLUCOSE, URINE (UA) NEGATIVE (NEGATIVE); KETONES,URINE NEGATIVE (NEGATIVE); LEUKOCYTE ESTERASE ,URINE 3+ (NEGATIVE); NITRITE,URINE NEGATIVE (NEGATIVE); PROTEIN,URINE NEGATIVE (NEGATIVE)
[2021-09-06 19:12] LABS: BACTERIA,URINE FEW /HPF; WBC,URINE TNTC /HPF
[2021-09-06 20:00] VITALS: BP 140/58
[2021-09-06] MEDS: OMEGA 3 (FISH OIL) 1000 MG CAP PO SCH (20:26)
[2021-09-06] MEDS: LORATADINE (CLARITIN) 10 MG TAB PO SCH (20:26)
[2021-09-06] MEDS: ACETAMINOPHEN 500 MG TAB (TYLENOL) PO SCH (20:28)
[2021-09-07] VITALS (8 sets, daily range): BP systolic 142–187; BP diastolic 74–90
[2021-09-07 05:55] LABS: HEMATOCRIT 33 % (35-52); HEMOGLOBIN 11.6 g/dL (11.5-16.0); MEAN CORPUSCULAR HEMOGLOBIN 31 pg (25-34); MEAN CORPUSCULAR HGB CONC 35 g/dL (32-36); MEAN CORPUSCULAR VOLUME 89 fL (80-99); MEAN PLATELET VOLUME 9.4 fL (9.0-12.2); PLATELET COUNT 268 10^3/uL (130-400); WHITE BLOOD COUNT 7.5 10^3/uL (4.3-11.0)
[2021-09-07 06:16] LABS: POTASSIUM 3.8 MMOL/L (3.6-5.0)
[2021-09-07 06:18] LABS: CALCIUM 8.9 MG/DL (8.5-10.1)
[2021-09-07 06:22] LABS: CREATININE SERUM 0.76 MG/DL (0.60-1.30)
[2021-09-07] MEDS: MEROPENEM 500 MG/NS 100 ML IVPB IV SCH ×6 (06:27→21:20)
[2021-09-07] MEDS: LEVOTHYROXINE 100 MCG (LEVOTHROID) TAB PO SCH (06:27)
[2021-09-07] MEDS: LACTATED RINGERS 1,000 ML IV SCH (06:29)
[2021-09-07] MEDS ORDERED: amLODIPine 5 MG (NORVASC) TAB PO SCH (09:00)
[2021-09-07] MEDS: LOSARTAN 50 MG (COZAAR) TAB PO SCH (09:19)
[2021-09-07] MEDS: amLODIPine 5 MG (NORVASC) TAB PO SCH (09:19)
[2021-09-07] MEDS: ACETAMINOPHEN 500 MG TAB (TYLENOL) PO SCH ×2 (09:19→21:19)
[2021-09-07] MEDS: MAGNESIUM OXIDE (MAG-OX)400 MG TAB PO SCH (09:19)
--- NOTE | 2021-09-07 11:45 | Progress Note - Hospitalist ---
Subjective HPI/CC On Admission Date Seen by Provider: Sep 07, 2021 Time Seen by Provider: 11:43 Was seen in the office after apparently falling out of bed. She does not recall what happened but was found by correction staff at [facility]. She was more confused than baseline. She has had a history of frequent urinary tr act infection 1 episode qualifying for sepsis requiring a short hospitalization so staff obtained a UA which did reveal too numerous to count white cells and 1+ bacteria this morning. Keturah comes with her daughter today who states that she has been more confused than baseline and appears weaker with poor appetite. This has been for the past several days. She has had urinary incontinence which is increased denies dysuria flank or abdominal pain. She was able to answer simple questions but it appeared fatigued. She denied night sweats chills or fever. The last UA that had a positive culture result was done in June of this year revealing Klebsiella oxytoca ESBL positive. Only oral option was Macrobid which the patient does not tolerate. Subjective/Events-last exam Pt reports doing well. Hopeful to go home. Discussed pending c/s and plan to complete 3 days of abx and DC home tomorrow. She is agreeable to this plan. Objective Exam Vital Signs Vital Signs Date Time Temp Pulse Resp B/P (MAP) Pulse Ox O2 Delivery O2 Flow Rate FiO2 09/07/21 08:01 37.1 75 18 182/79 (113) 94 Room Air Capillary Refill : General Appearance: No Apparent Distress, Chronically ill Respiratory: Lungs Clear, No Respiratory Distress Cardiovascular: Regular Rate, Rhythm, No Murmur Results/Procedures Lab Laboratory Tests 09/07/21 05:20 Patient resulted labs reviewed. Assessment/Plan Assessment and Plan Assess & Plan/Chief Complaint A/P 1. UTI- Continue IV abx until tomorrow to complete 3 days as [facility] states c/s likely won't be back until Friday 2. Alzheimer's dementia per patient and daughters wish continue DNR status 3. Dehydration - resolved, DC IVF 4. 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
[2021-09-07] MEDS ORDERED: TROLAMINE (ASPERCREME) 10% CR 90 GM TUBE TOP PRN (14:30)
--- NOTE | 2021-09-07 14:51 | Physical Therapy Progress Note ---
Therapy Progress Note Nurse sitting next to pt's room and asked that pt not be seen as Nurse had just gotten pt back to bed and pt was asleep. PT will see pt on next available date. BERNICE RAJPUT MOBILITY DEVELOPER Sep 07, 2021 14:51
[2021-09-07] MEDS: LORATADINE (CLARITIN) 10 MG TAB PO SCH (21:19)
[2021-09-07] MEDS: OMEGA 3 (FISH OIL) 1000 MG CAP PO SCH (21:20)
[2021-09-08 03:55] VITALS: BP 148/66
[2021-09-08] MEDS: LEVOTHYROXINE 100 MCG (LEVOTHROID) TAB PO SCH (06:34)
[2021-09-08] MEDS: MEROPENEM 500 MG/NS 100 ML IVPB IV SCH ×2 (06:34)
[2021-09-08 08:28] VITALS: BP 172/77
[2021-09-08] MEDS: amLODIPine 5 MG (NORVASC) TAB PO SCH (09:22)
[2021-09-08] MEDS: LOSARTAN 50 MG (COZAAR) TAB PO SCH (09:22)
[2021-09-08] MEDS: MAGNESIUM OXIDE (MAG-OX)400 MG TAB PO SCH (09:22)
[2021-09-08] MEDS: ACETAMINOPHEN 500 MG TAB (TYLENOL) PO SCH (09:22)
--- NOTE | 2021-09-08 10:17 | D/C HH Face to Face Order ---
D/C Face to Face Orders Instructions for Patient Via [facility], Patient Instructions/FollowUp: Please continue to take your medications as written. Please follow up with your primary care doctor to follow up this hospital stay. Physician to follow Patient: Dr Larry Discharge Diet for Home: No Restrictions Patient Data-Allergies,Ht & Wt Patient Allergies: Coded Allergies: amoxicillin (Unverified Allergy, Mild, 08/20/06) Sulfa (Sulfonamide Antibiotics) (Verified Allergy, Unknown, RASH, 09/11/05) Height (Feet): 5 Height (Inches): 4.00 Weight (Pounds): 140 Home Health Need/Face to Face Date of Face to Face: Sep 08, 2021 Clinical Findings: Generalized weakness and fatigue, Muscle weakness I have seen Pt [id number]: Yes Discharged To: Home Diagnosis/Conditions: UTI Patient is Homebound due to: Muscle weakness Homebound Status Due to the above stated illness, injury or surgical procedure (medical condition or diagnosis) and associated clinical findings, the patient is homebound because of his/her inability to leave home except with aid of a supportive device and/or person AND leaving the home requires a considerable and taxing effort or is medically contraindicated. Pt req the following assistanc: Aid of another person, Walker Home Health Nursing Orders Home Health Services Order: Casting Agent-Evaluate & Treat, Physical Therapy-Evaluate & Treat Home Health Infusion Therapy Line Start Date: Sep 08, 2021 Therapy Orders Therapy Orders: OT (must have SN or PT order), Physical Therapy Therapy Specific Orders: Eval assistive deivces, Teach enviro modifications/safety, Gait training, Increase strength/endurance Certify Stmt I certify that this patient is under my care and that I, a nurse practitioner or a physician; a residential real estate assistant working with me, had a face to face encounter that - meets the physician face to face encounter requirements with this patient as dated. MAEVE RAMESH MD Sep 08, 2021 10:17
--- NOTE | 2021-09-08 10:19 | Discharge Summary ---
Diagnosis/Chief Complaint Date of Admission Sep 05, 2021 at 14:22 Date of Discharge Discharge Date: Sep 08, 2021 Admission Diagnosis A/P 1. UTI with at least SIRS cannot rule out sepsis not severe with exacerbation of underlying Alzheimer's dementia with history of recent ESBL positive Klebsiella we will admit and initiate meropenem she does have a penicillin allergy and also an allergy to Keflex which caused diffuse rash when given for UTI earlier this year. 2. Alzheimer's dementia per patient and daughters wish continue DNR status. 3. Dehydration secondary #1 we will initiate lactated Ringer's. 4. Hypertension we will hold antihypertensives for now but will likely need to go back on home medications which include amlodipine 5 mg daily and losartan 50 mg daily. 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 Primary Care Bobby Larry MD Discharge Summary Discharge Physical Exam Allergies: Coded Allergies: amoxicillin (Unverified Allergy, Mild, 08/20/06) Sulfa (Sulfonamide Antibiotics) (Verified Allergy, Unknown, RASH, 09/11/05) Vitals & I&Os Vital Signs Date Time Temp Pulse Resp B/P (MAP) Pulse Ox O2 Delivery O2 Flow Rate FiO2 09/08/21 08:28 36.9 72 19 172/77 (108) 95 Room Air General Appearance: No Apparent Distress, Chronically ill Respiratory: Lungs Clear Cardiovascular: Regular Rate, Rhythm Neurologic/Psychiatric: Alert, Oriented x3 Hospital Course Patient was admitted to the hospital secondary to urinary tract infection with multidrug-resistant Klebsiella. She did not have any evidence of sepsis or complicated cystitis so was treated for 3 days with IV meropenem and did well. She was discharged home to [facility] with home health for continued strengthening. Labs (last 24 hrs) Microbiology 09/06/21 Urine Culture - Final, Complete NO GROWTH Patient resulted labs reviewed. Discussion & Recommendations Discharge Planning: >30 minutes discharge planning Discharge Home Medications: Active Scripts Active Reported Preparation H (Hydrocortisone) 1 % Cream..g. 1 Applic TP UD PRN Aspercreme (Lidocaine HCl) 4 % Cream..g. 1 Applic TP TID PRN Triamcinolone Acetonide 0.5% Cream (Triamcinolone Acetonide) 0.5 % Cream..g. 1 Applic TP BID PRN Tums (Calcium Carbonate) 200 Mg Calcium (500 Mg) Tab.chew 400 Mg PO Q4H PRN TAKES 2 TABLETS Desitin (Zinc Oxide) 13 % Cream..g. 1 Applic TP UD PRN Mucus ER (Guaifenesin) 600 Mg Tab.er.12h 600 Mg PO Q12H PRN [Fish Oil 2,000MG] 2,000 Mg PO HS Allergy Relief (Cetirizine HCl) 10 Mg Tablet 10 Mg PO HS Calcium 600 + Vit D Tablet (Calcium Carbonate/Vitamin D3) 600 Mg Calcium-10 Mcg (400 Unit) Tablet 1 Each PO BID Magnesium (Magnesium Oxide) 250 Mg Tablet 250 Mg PO DAILY Losartan Potassium 100 Mg Tablet 50 Mg PO DAILY TAKES (100MG) TABLET Tylenol Extra Strength (Acetaminophen) 500 Mg Tablet 1,000 Mg PO BID TAKES 2 TABLETS Ocuvite Adult 50 Plus Softgel (C,E,Zinc,Copper 24/Om3/Lut/Tiarra) 1 Each Capsule 1 Each PO HS Amlodipine Besylate 5 Mg Tablet 5 Mg PO DAILY Levothyroxine Sodium 100 Mcg Tablet 100 Mcg PO DAILY Instructions to patient/family Please see electronic discharge instructions given to patient. MAEVE RAMESH MD Sep 08, 2021 10:18
== END 2021-09-08 10:55 | disposition home health service (06) | DRG 690 ==
LOC: 4TH 14:22
PROVIDERS: ADMIT Family Medicine; ATTEND Family Medicine
DX: N39.0 Urinary tract infection, site not specified (principal); Z16.24 Resistance to multiple antibiotics; B96.1 Klebsiella pneumoniae [K. pneumoniae] as the cause of diseases classified elsewhere; I10 Essential (primary) hypertension; G30.9 Alzheimer's disease, unspecified; F02.80 Dementia in other diseases classified elsewhere, unspecified severity, without behavioral disturbance, psychotic disturbance, mood disturbance, and anxiety; E89.0 Postprocedural hypothyroidism; E86.0 Dehydration; Z66 Do not resuscitate; H54.7 Unspecified visual loss; Z88.1 Allergy status to other antibiotic agents; Z88.2 Allergy status to sulfonamides
CPT/HCPCS: 36415; 80048; 80053; 81000; 85025; 85027; 87088

== ENCOUNTER 2021-11-26 07:23 | Emergency (ER) | payer MEDICARE ==
[~2021-11-26] VITALS: Ht 162.5 cm; Wt 65.7 kg
[~2021-11-26 07:23] MED LIST changes: +CALC-1037 PO; +CALC500T7 PO; +CETI-458 PO; +FISH OIL 2000 MG PO; +GUAI600T99 PO; +HYDR26CR2 TP; +LIDO76.5 TP; +MAGN250T13 PO; +TRIA15CR TP; +ZINC56CR2 TP
[2021-11-26] MEDS ORDERED: NS IV 500 ML 500 ML IV ONE (08:00)
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
[2021-11-26 08:13] LABS: ALBUMIN 3.8 GM/DL (3.2-4.5); POTASSIUM 3.9 MMOL/L (3.6-5.0)
[2021-11-26 08:14] LABS: BASOPHILS % (AUTO) 0 % (0-10); EOSINOPHILS # (AUTO) 0.2 10^3/uL (0.0-0.3); EOSINOPHILS % (AUTO) 2 % (0-10); HEMATOCRIT 34 % (35-52); HEMOGLOBIN 11.5 g/dL (11.5-16.0); LYMPHOCYTES # (AUTO) 0.7 10^3/uL (1.0-4.0); LYMPHOCYTES % (AUTO) 6 % (12-44); MEAN CORPUSCULAR HEMOGLOBIN 30 pg (25-34); MEAN CORPUSCULAR HGB CONC 34 g/dL (32-36); MEAN CORPUSCULAR VOLUME 89 fL (80-99); MEAN PLATELET VOLUME 9.1 fL (9.0-12.2); MONOCYTES # (AUTO) 1.1 10^3/uL (0.0-1.0); MONOCYTES % (AUTO) 9 % (0-12); NEUTROPHILS # (AUTO) 9.4 10^3/uL (1.8-7.8); NEUTROPHILS % (AUTO) 82 % (42-75); PLATELET COUNT 255 10^3/uL (130-400); WHITE BLOOD COUNT 11.4 10^3/uL (4.3-11.0)
[2021-11-26 08:15] LABS: CALCIUM 9.2 MG/DL (8.5-10.1)
[2021-11-26 08:16] LABS: TOTAL PROTEIN 7.7 GM/DL (6.4-8.2)
[2021-11-26 08:18] LABS: BILIRUBIN,TOTAL 0.7 MG/DL (0.1-1.0)
[2021-11-26 08:20] LABS: CREATININE SERUM 0.95 MG/DL (0.60-1.30)
[2021-11-26 08:28] LABS: BAND NEUTROPHILS 1 %; EOSINOPHILS % (MANUAL) 1 %; LYMPHOCYTES % (MANUAL) 8 %; MONOCYTES % (MANUAL) 6 %; NEUTROPHILS % (MANUAL) 84 %
[2021-11-26 08:29] LABS: RBC MORPH NORMAL
[2021-11-26 08:45] LABS: BILIRUBIN,URINE NEGATIVE (NEGATIVE); CLARITY,URINE CLEAR; COLOR,URINE YELLOW; GLUCOSE, URINE (UA) NEGATIVE (NEGATIVE); KETONES,URINE NEGATIVE (NEGATIVE); NITRITE,URINE NEGATIVE (NEGATIVE); PROTEIN,URINE 1+ (NEGATIVE)
[2021-11-26 08:46] LABS: BACTERIA,URINE FEW /HPF; LEUKOCYTE ESTERASE ,URINE 1+ (NEGATIVE)
--- NOTE | 2021-11-26 09:02 | Diagnostic Imaging Report ---
PROCEDURE: CT head and CT cervical spine without contrast. TECHNIQUE: Multiple contiguous axial images were obtained through the brain and cervical spine without the use of intravenous contrast. Sagittal and coronal reformations through the cervical spine were then performed. Auto Exposure Controls were utilized during the CT exam to meet ALARA standards for radiation dose reduction. INDICATION: Trauma. Head injury. Fall. COMPARISON: CT head and cervical spine without contrast on 08/07/2021. FINDINGS: CT HEAD: Advanced generalized parenchymal volume loss. Advanced leukoaraiosis. No intracranial hemorrhage, mass effect, hydrocephalus, or extra-axial fluid collections. No CT evidence of a territorial infarction. Osseous structures are intact. Scalp hematoma overlying the right parietal convexity. Paranasal sinuses and mastoids are clear. CT CERVICAL SPINE: Minimal anterolisthesis of C7 on T1. Vertebral body heights are preserved. No fractures. Mild to moderate spondylotic changes in the cervical spine. Moderate atherosclerotic calcifications in the carotid bifurcations. The lung apices are clear. IMPRESSION: 1. Large scalp hematoma overlying the right parietal convexity. No fractures. 2. No acute intracranial or cervical spine CT findings. Dictated by: Dictated on workstation # [id number]
--- NOTE | 2021-11-26 09:14 | Diagnostic Imaging Report ---
INDICATION: Fall. TIME OF EXAM: 8:50 AM. TECHNIQUE: Three views of the left knee were obtained. FINDINGS: There are postop changes of total knee arthroplasty. The prosthetic elements are in good position. No fracture or loosening is identified. IMPRESSION: Postop changes. No acute abnormality is detected. Dictated by: Dictated on workstation # [id number]
--- NOTE | 2021-11-26 09:15 | Diagnostic Imaging Report ---
INDICATION: Fall. TIME OF EXAM: 8:53 AM. TECHNIQUE: Two views of the left hip were obtained. FINDINGS: The femoroacetabular alignment is normal. The femoral head and neck are intact. The rami are intact. No fractures are seen. IMPRESSION: No acute bony abnormality is detected. Dictated by: Dictated on workstation # [id number]
[2021-11-26] MEDS ORDERED: CEPH500T PO (09:52)
[2021-11-26] MEDS ORDERED: CEPHALEXIN 250 MG (KEFLEX) CAP PO ONE (10:00)
[2021-11-26 10:23] VITALS: BP 152/88
== END 2021-11-26 10:07 | disposition home or self-care (01) ==
LOC: EDUNIT# 07:23 → ER 07:28
DX: S00.03XA Contusion of scalp, initial encounter (principal); N39.0 Urinary tract infection, site not specified; Z88.1 Allergy status to other antibiotic agents; Z88.2 Allergy status to sulfonamides; W01.0XXA Fall on same level from slipping, tripping and stumbling without subsequent striking against object, initial encounter
CPT/HCPCS: 36415; 51701; 70450; 72125; 73502; 73562; 80053; 81000; 85007; 85027; 86141; 87088

== ENCOUNTER 2022-07-12 08:32 | Inpatient (IN) | payer MEDICARE ==
[~2022-07-12] VITALS: Ht 165 cm; Wt 69.3 kg
[~2022-07-12 08:32] MED LIST changes: +GUAI-912 PO; -GUAI600T99 PO
--- NOTE | 2022-07-12 08:47 | ED Respiratory ---
General Chief Complaint: Respiratory Problems Stated Complaint: SOB Nursing Triage Note: Patient to room 5 via [facility] from [facility] c/o sob. started 2 weeks ago. Doctor prescribed her a breathing treatment. no history of COPD. o2 87 on RA. Source: patient, EMS Exam Limitations: no limitations History of Present Illness Date Seen by Provider: Jul 12, 2022 Time Seen by Provider: 08:35 Initial Comments 89-year-old female presents to the emergency department today for shortness of breath. Symptoms present for the last 2 weeks. Doctor prescribed her a breath ing treatment and she has had only 1 but she does not feel that this really helped her. She denies any known fevers or chills but states she has had a nonproductive cough. No chest pain. No abdominal pain. No changes in bowel or bladder habits. She is alert, oriented and I asked her about CODE STATUS. She states she would not want CPR or to be intubated. All other systems reviewed and negative except documented per HPI. Voice recognition software was used to help create this chart Allergies and Home Medications Allergies Coded Allergies: amoxicillin (Unverified Allergy, Mild, 08/20/06) Sulfa (Sulfonamide Antibiotics) (Verified Allergy, Unknown, RASH, 09/11/05) Patient Home Medication List Home Medication List Reviewed: Yes Acetaminophen (Tylenol Extra Strength) 500 Mg Tablet, 1,000 MG PO BID, (Reported) Entered as Reported by: RAFAEL NELSON on 10/30/20926 Amlodipine Besylate (Amlodipine Besylate) 5 Mg Tablet, 5 MG PO DAILY, (Reported) Entered as Reported by: RAFAEL NELSON on 10/30/20926 C,E,Zinc,Copper 24/Om3/Lut/Tiarra (Ocuvite Adult 50 Plus Softgel) 1 Each Capsule, 1 EACH PO HS, (Reported) Entered as Reported by: RAFAEL NELSON on 10/30/20926 Calcium Carbonate (Tums) 200 Mg Calcium (500 Mg) Tab.chew, 400 MG PO Q4H PRN for HEARTBURN, (Reported) Entered as Reported by: RAFAEL NELSON on 09/06/21 1004 Calcium Carbonate/Vitamin D3 (Calcium 600 + Vit D Tablet) 600 Mg Calcium-10 Mcg (400 Unit) Tablet, 1 EACH PO BID, (Reported) Entered as Reported by: RAFAEL NELSON on 09/06/211003 Cephalexin (Cephalexin) 500 Mg Tablet, 500 MG PO BID Prescribed by: MELYSSA SEGURA on 11/26/21 0952 Cetirizine HCl (Allergy Relief) 10 Mg Tablet, 10 MG PO HS, (Reported) Entered as Reported by: RAFAEL NELSON on 09/06/211003 Guaifenesin (Mucus ER) 600 Mg Tab.er.12h, 600 MG PO Q12H PRN for COUGH, (Reported) Entered as Reported by: RAFAEL NELSON on 09/06/211003 Hydrocortisone (Preparation H) 1 % Cream..g., 1 APPLIC TP UD PRN for HEMMORRHOID DISCOMFORT, (Reported) Entered as Reported by: RAFAEL NELSON on 09/06/211003 Levothyroxine Sodium (Levothyroxine Sodium) 100 Mcg Tablet, 100 MCG PO DAILY, (Reported) Entered as Reported by: RAFAEL NELSON on 10/30/20 09 Lidocaine HCl (Aspercreme) 4 % Cream..g., 1 APPLIC TP TID PRN for MUSCLE PAINS, (Reported) Entered as Reported by: RAFAEL NELSON on 09/06/211003 Losartan Potassium (Losartan Potassium) 100 Mg Tablet, 50 MG PO DAILY, (Reported ) Entered as Reported by: RAFAEL NELSON on 09/06/211003 Magnesium Oxide (Magnesium) 250 Mg Tablet, 250 MG PO DAILY, (Reported) Entered as Reported by: RAFAEL NELSON on 09/06/211003 Triamcinolone Acetonide (Triamcinolone Acetonide 0.5% Cream) 0.5 % Cream..g., 1 APPLIC TP BID PRN for ITCHING, (Reported) Entered as Reported by: RAFAEL NELSON on 09/06/211003 Zinc Oxide (Desitin) 13 % Cream..g., 1 APPLIC TP UD PRN for ITCHING, (Reported) Entered as Reported by: RAFAEL NELSON on 09/06/21 100 [Fish Oil 2,000MG] , 2,000 MG PO HS, (Reported) Entered as Reported by: RAFAEL NELSON on 09/06/211003 Review of Systems Review of Systems Constitutional: see HPI Past Fylfywg-[place]-Pbydeo Hx Patient Social History Tobacco Use?: No Substance use?: No Alcohol Use?: No Immunizations Up To Date First/Initial COVID19 Vaccinat: [id number] Second COVID19 Vaccination Shantanu: JUNE 2020 Third COVID19 Vaccination Date: JUNE 2020 Past Medical History Surgery/Hospitalization HX: LEFT BREAST LUMPECTOMY Surgeries: Yes (T&A,HYST.,THYROIDECTOMY,TKR,BREAST SURGERY,CATARACTS,ORAL SURGERY) Breast, Eye Surgery, Hysterectomy, Orthopedic, Thyroidectomy Respiratory: No Cardiac: Yes (PT DENIES ANY CHEST PAIN,ANGINA,PALPATIONS,IRREGULAR HEART RATE,JAW OR ARM ) Hypertension Neurological: Yes Dementia Reproductive Disorders: No Genitourinary: Yes (Recurrent urinary tract infections) Gastrointestinal: No Musculoskeletal: Yes Endocrine: Yes Hypothyroidsim Psychosocial: Yes Blood Disorders: No Family Medical History Reviewed Nursing Family Hx No Pertinent Family Hx Physical Exam Vital Signs - First Documented Capillary Refill : Less Than 3 Seconds Height: 5'4.00" Weight: 140lbs. oz. 63.330168jd; 21.00 BMI Method:Estimated General Appearance: WD/WN, no apparent distress Eyes: Bilateral Eye Normal Inspection, Bilateral Eye PERRL, Bilateral Eye EOMI HEENT: normal ENT inspection, other (Dry mucous membranes) Neck: non-tender, supple Respiratory: chest non-tender, other (Patient has mild increased work of breathing. She has scattered rhonchi throughout bilateral lung jin, left greater than right.) Cardiovascular: regular rate, rhythm, other (I think you hear faint systolic murmur at the right sternal border however it is difficult to hear definitively due to rhonchi) Gastrointestinal: normal bowel sounds, non tender, soft, no organomegaly Extremities: normal range of motion, no calf tenderness, other (1+ pitting edema bilateral lower extremities) Neurologic/Psychiatric: alert, normal mood/affect Skin: normal color, warm/dry Focused Exam Lactate Level 07/12/22 09:05: Lactic Acid Level 1.18 Lactic Acid Level Laboratory Tests Test 07/12/22 09:05 Lactic Acid Level 1.18 MMOL/L (0.50-2.00) Progress/Results/Core Measures Suspected Sepsis SIRS Temperature: Pulse: 87 Respiratory Rate: 24 Laboratory Tests 07/12/22 08:44: White Blood Count 5.7 Blood Pressure 129 /65 Mean: 86 07/12/22 09:05: Lactic Acid Level 1.18 Laboratory Tests 07/12/22 08:44: Creatinine 0.97, Platelet Count 214, Total Bilirubin 0.4 Results/Orders Lab Results Laboratory Tests Test 07/12/22 08:44 07/12/22 09:05 07/12/22 09:08 Range/Units White Blood Count 5.7 4.3-11.0 10^3/uL Red Blood Count 3.91 3.80-5.11 10^6/uL Hemoglobin 11.6 11.5-16.0 g/dL Hematocrit 34 L 35-52 % Mean Corpuscular Volume 86 80-99 fL Mean Corpuscular Hemoglobin 30 25-34 pg Mean Corpuscular Hemoglobin Concent 35 32-36 g/dL Red Cell Distribution Width 13.5 10.0-14.5 % Platelet Count 214 130-400 10^3/uL Mean Platelet Volume 9.7 9.0-12.2 fL Immature Granulocyte % (Auto) 0 % Neutrophils (%) (Auto) 79 H 42-75 % Lymphocytes (%) (Auto) 10 L 12-44 % Monocytes (%) (Auto) 10 0-12 % Eosinophils (%) (Auto) 0 0-10 % Basophils (%) (Auto) 0 0-10 % Neutrophils # (Auto) 4.5 1.8-7.8 10^3/uL Lymphocytes # (Auto) 0.5 L 1.0-4.0 10^3/uL Monocytes # (Auto) 0.6 0.0-1.0 10^3/uL Eosinophils # (Auto) 0.0 0.0-0.3 10^3/uL Basophils # (Auto) 0.0 0.0-0.1 10^3/uL Immature Granulocyte # (Auto) 0.0 0.0-0.1 10^3/uL Sodium Level 133 L 135-145 MMOL/L Potassium Level 4.2 3.6-5.0 MMOL/L Chloride Level 101 98-107 MMOL/L Carbon Dioxide Level 23 21-32 MMOL/L Anion Gap 9 5-14 MMOL/L Blood Urea Nitrogen 23 H 7-18 MG/DL Creatinine 0.97 0.60-1.30 MG/DL Estimat Glomerular Filtration Rate 56 BUN/Creatinine Ratio 24 Glucose Level 101 70-105 MG/DL Calcium Level 8.7 8.5-10.1 MG/DL Corrected Calcium 8.9 8.5-10.1 MG/DL Total Bilirubin 0.4 0.1-1.0 MG/DL Aspartate Amino Transf (AST/SGOT) 13 5-34 U/L Alanine Aminotransferase (ALT/SGPT) 12 0-55 U/L Alkaline Phosphatase 72 40-136 U/L B-Type Natriuretic Peptide 211.8 H <100.0 PG/ML Total Protein 7.5 6.4-8.2 GM/DL Albumin 3.8 3.2-4.5 GM/DL Lactic Acid Level 1.18 0.50-2.00 MMOL/L SARS-CoV-2 RNA (RT-PCR) Not Detected Not Detecte My Orders Orders - SARAH JACKSON DO Cbc With Automated Diff (07/12/22 08:42) Comprehensive Metabolic Panel (07/12/22 08:42) Blood Culture (07/12/22 08:42) Chest 1 View, Ap/Pa Only (07/12/22 08:42) Ed Iv/Invasive Line Start (07/12/22 08:42) Ekg Tracing (07/12/22 08:42) Vital Signs Adult Sepsis Patie Q15M (07/12/22 08:42) O2 (07/12/22 08:42) Remove Rings In Anticipation O (07/12/22 08:42) Lactic Acid Analyzer (07/12/22 08:42) Bnp Bong (07/12/22 08:42) Covid 19 Inhouse Test (07/12/22 08:44) Ct Angio Chest W (07/12/22 09:19) Meropenem (Merrem 1000 Mg) (07/12/22 09:30) Iohexol Injection (Omnipaque 350 Mg/Ml 1 (07/12/22 09:45) Received Contrast (Hold Metformin- Contr (07/12/22 09:45) Ns (Ivpb) (Sodium Chloride 0.9% Ivpb Bag (07/12/22 09:45) Vancomycin Injection (Vancomycin Injecti (07/12/22 10:15) Code/Resuscitation (07/12/22 10:24) Medications Given in ED Current Medications Medications Dose Ordered Sig/Caridad Route Start Time Stop Time Status Last Admin Dose Admin Iohexol 100 ml ONCE ONCE IV 07/12/22 09:45 07/12/22 09:46 DC 07/12/22 10:09 59 ML Meropenem 1000 mg/ Sodium Chloride 100 ml @ 200 mls/hr ONCE ONCE IV 07/12/22 09:30 07/12/22 09:59 DC 07/12/22 10:15 200 MLS/HR Sodium Chloride 100 ml ONCE ONCE IV 07/12/22 09:45 07/12/22 09:46 DC 07/12/22 10:09 80 ML Vital Signs/I&O 07/12/22 07/12/22 07/12/22 08:36 08:36 08:40 Temp 37.0 Pulse 87 Resp 24 B/P (MAP) 129/65 (86) Pulse Ox 97 96 O2 Delivery OxyMask OxyMask OxyMask O2 Flow Rate 4.00 4.00 4.00 Capillary Refill : Less Than 3 Seconds Blood Pressure Mean: 86 Critical Care Note Critical Care Total Time (minutes) 45 Departure Communication (Admissions) The patient was initially slightly hypoxic even on 2 L of oxygen via nasal cannula however she was breathing significantly through her mouth. This persisted up facemask at 4 L and she maintained her oxygen greater than 94% thereafter. Her initial chest x-ray was not too impressive especially given her level of hypoxia. I ordered a CTA to rule out a pulmonary embolus which shows more prominent pneumonia on the right side. She started on meropenem given her penicillin allergy. Also given vancomycin IV. She is not tachycardic, not hypotensive and does not meet sepsis criteria. No indication for 30 cc/kg fluid bolus at this time. There is no evidence for pulmonary embolus. No evidence for ACS with negative EKG on my independent review. I also independently reviewed her chest x-ray showing a possible subtle right lower lobe infiltrate versus atelectasis. Reviewed her CT imaging showing right sided pneumonia. EKG is nonischemic again and her troponin is negative. She is admitted to the hospitalist, Dr. Moore, in stable condition. The patient is a DNR/DNI and I placed this order in the computer Impression Primary Impression: HCAP (healthcare-associated pneumonia) Additional Impression: Hypoxia Disposition: ADMITTED INPATIENT Condition: Stable Admissions Decision to Admit Reason: Admit from ER (General) Departure-Patient Inst. Referrals: RENETTA ROMANO MD (PCP/Family) Primary Care Physician SARAH JACKSON DO Jul 12, 2022 08:47
[2022-07-12 09:01] LABS: ALBUMIN 3.8 GM/DL (3.2-4.5); BASOPHILS % (AUTO) 0 % (0-10); EOSINOPHILS % (AUTO) 0 % (0-10); HEMATOCRIT 34 % (35-52); HEMOGLOBIN 11.6 g/dL (11.5-16.0); LYMPHOCYTES # (AUTO) 0.5 10^3/uL (1.0-4.0); LYMPHOCYTES % (AUTO) 10 % (12-44); MEAN CORPUSCULAR HEMOGLOBIN 30 pg (25-34); MEAN CORPUSCULAR HGB CONC 35 g/dL (32-36); MEAN CORPUSCULAR VOLUME 86 fL (80-99); MEAN PLATELET VOLUME 9.7 fL (9.0-12.2); MONOCYTES # (AUTO) 0.6 10^3/uL (0.0-1.0); MONOCYTES % (AUTO) 10 % (0-12); NEUTROPHILS # (AUTO) 4.5 10^3/uL (1.8-7.8); NEUTROPHILS % (AUTO) 79 % (42-75); PLATELET COUNT 214 10^3/uL (130-400); WHITE BLOOD COUNT 5.7 10^3/uL (4.3-11.0)
[2022-07-12 09:02] LABS: POTASSIUM 4.2 MMOL/L (3.6-5.0)
[2022-07-12 09:03] LABS: CALCIUM 8.7 MG/DL (8.5-10.1)
[2022-07-12 09:04] LABS: TOTAL PROTEIN 7.5 GM/DL (6.4-8.2)
[2022-07-12 09:06] LABS: BILIRUBIN,TOTAL 0.4 MG/DL (0.1-1.0)
[2022-07-12 09:08] LABS: CREATININE SERUM 0.97 MG/DL (0.60-1.30)
--- NOTE | 2022-07-12 09:21 | Diagnostic Imaging Report ---
INDICATION: Dyspnea, shortness of breath. Frontal chest obtained at 09:03 a.m. compared to 10/28/2020 FINDINGS: There is cardiomegaly. There is mild central vascular congestion and peribronchial thickening. There is some minimal infiltrate or atelectasis in the right base. There is no pneumothorax or pleural fluid. IMPRESSION: Cardiomegaly with some peribronchial thickening and mild right basilar infiltrate. Dictated by: Dictated on workstation # [id number]
[2022-07-12] MEDS ORDERED: MEROPENEM 1,000 MG in NS (IVPB) 100 ML IV ONE (09:30)
[2022-07-12] MEDS ORDERED: IOHEXOL 350 MG/ML 100 ML (OMNIPAQUE 350) VIAL IV ONE (09:45)
[2022-07-12] MEDS ORDERED: NS 100 ML (IVPB) BAG IV ONE (09:45)
[2022-07-12] MEDS ORDERED: HOLD METFORMIN - RECEIVED CONTRAST 20 ML VIAL IV SCH (09:45)
--- NOTE | 2022-07-12 10:04 | Diagnostic Imaging Report ---
PROCEDURE: CT angiography of the chest with contrast. TECHNIQUE: Multiple contiguous axial images were obtained through the chest after uneventful bolus administration of intravenous contrast. 3D reconstructed CTA MIP acquisitions were also performed. Auto Exposure Controls were utilized during the CT exam to meet ALARA standards for radiation dose reduction. INDICATION: Dyspnea, hypoxia, leg swelling. COMPARISON: Chest x-ray from the same day FINDINGS: The pulmonary arteries are diagnostic to the proximal segmental level. There is motion artifact on multiple images. No filling defects are seen to indicate a pulmonary embolus. The heart is moderately large. There is minimal pericardial fluid without evangelina effusion seen. No mediastinal adenopathy is seen. There is no axillary adenopathy. There is no significant pleural effusion or pneumothorax. There are airspace opacities in the posterior right upper lobe with surrounding groundglass opacity. There is groundglass and airspace opacity in the right lower lobe as well. There appears to be chronic fibrotic change and atelectasis in the lungs bilaterally. No central endobronchial lesions are seen. No acute osseous abnormalities are identified. Imaged portions of the upper abdomen demonstrate no acute abnormality. There are multiple clips in the left breast. 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 IMPRESSION: 1. No pulmonary embolus. 2. Opacities in the right lung, likely pneumonia. This appears superimposed on chronic atelectasis and fibrosis. 3. Moderate cardiomegaly. Dictated by: Dictated on workstation # [id number]
[2022-07-12] MEDS ORDERED: VANCOMYCIN INJECTION 1,000 MG in NS (IVPB) 250 ML IV ONE (10:15)
[2022-07-12 12:26] VITALS: BP 156/83
[2022-07-12] MEDS ORDERED: BENZONATATE 100 MG (TESSALON) CAPSULE PO PRN (12:30)
[2022-07-12] MEDS ORDERED: ANTACID SUSP 30 ML UDC (MYLANTA) PO PRN (12:30)
[2022-07-12] MEDS ORDERED: ACETAMINOPHEN 325 MG TABLET PO PRN (12:30)
[2022-07-12] MEDS ORDERED: VANCOMYCIN INJECTION 0.1 MG in NS (IVPB) 250 ML IV SCH (12:30)
[2022-07-12] MEDS ORDERED: ONDANSETRON 4 MG/2 ML (SDV) Z0FRAN IV PRN (12:30)
[2022-07-12] MEDS ORDERED: MILK OF MAGNESIA 400 MG/5 ML 30 ML UDC PO PRN (12:30)
[2022-07-12] MEDS ORDERED: VANCOMYCIN INJECTION 1,000 MG in NS (IVPB) 250 ML IV SCH (12:45)
--- NOTE | 2022-07-12 13:11 | History & Physical-Hospitalist ---
History of Present Illness HPI/Chief Complaint Pt is an 89yoCF who presented to the ER due to shortness of breath. This has been going on for about [address] Larry prescribed oral abx and breathing treatments. Despite this she has continued to worsen so presented to the ER. She was hypoxic for EMS at 87% and placed on nasal cannula but was mouth breathing so switched to an oximask at 4lpm. She was found to have a right sided pneumonia and admitted for further management and IV abx. She denies any fevers but has been cold. She is coughing but it is nonproductive. Source: patient Date Seen 07/12/22 Time Seen by a Provider: 13:10 Attending Physician Bobby Larry MD PCP Admitting Physician: Maeve Stone MD Attending Physician: Maeve Stone MD Referring Physician Date of Admission Jul 12, 2022 at 11:55 Home Medications & Allergies Home Medications Reviewed patient Home Medication Reconciliation performed by pharmacy medication reconciliations installation technician and/or nursing. Patients Allergies have been reviewed. Allergies Allergies Coded Allergies amoxicillin (Unverified Allergy, Mild, 08/20/06) Sulfa (Sulfonamide Antibiotics) (Verified Allergy, Unknown, RASH, 09/11/05) Past Ghwifmy-Oolpar-Rrpbpb Hx Patient Social History Employed/Student: retired Tobacco Use?: No Use of E-Cig and/or Vaping dev: No Substance use?: No Alcohol Use?: No Pt feels they are or have been: No Immunizations Up To Date First/Initial COVID19 Vaccinat: [id number] Second COVID19 Vaccination Shantanu: JUNE 2020 Tetanus Booster (TDap): Less Than 5 Years Hepatitis A: Yes Hepatitis B: Yes Current Status status: No status: No Advance Directives: Yes Advance Directive Location: Copy placed in chart Communicates: Verbally Primary Language: Chinese Preferred Spoken Language: Chinese Is interpretation needed?: No Sensory deficits: Vision impairment Implanted or Applied Medical D: None Past Medical History Surgeries: Breast, Eye Surgery, Hysterectomy, Orthopedic, Thyroidectomy Hypertension Dementia Hypothyroidsim Blood Disorders: No Family Medical History Reviewed Nursing Family Hx No Pertinent Family Hx Review of Systems Constitutional: see HPI Physical Exam Physical Exam Vital Signs Vital Signs - First Documented 07/13/22 10:17 FiO2 40 Capillary Refill : Less Than 3 Seconds Height, Weight, BMI Height: 5'4.00" Weight: 140lbs. oz. 63.356177sz; 25.45 BMI Method:Estimated General Appearance: No Apparent Distress, Chronically ill, Thin Respiratory: Crackles (bases R>L) Cardiovascular: Regular Rate, Rhythm, No Murmur Extremity: No Calf Tenderness, No Pedal Edema Neurologic/Psychiatric: Alert, Oriented x3 Results Results/Procedures Labs Laboratory Tests 07/12/22 08:44 07/13/22 05:57 Patient resulted labs reviewed. Imaging: Reviewed Imaging Report Imaging [facility] [place] NAME[facility] REC[facility] [id number] PT STATUS: REG ER : 1930 PHYSICIAN: SARAH JACKSON DO ADMIT DATE: 07/12/22/ER Signed Date of Exam:07/12/22 CHEST 1 VIEW, AP/PA ONLY INDICATION: Dyspnea, shortness of breath. Frontal chest obtained at 09:03 a.m. compared to 10/28/2020 FINDINGS: There is cardiomegaly. There is mild central vascular congestion and peribronchial thickening. There is some minimal infiltrate or atelectasis in the right base. There is no pneumothorax or pleural fluid. IMPRESSION: Cardiomegaly with some peribronchial thickening and mild right basilar infiltrate. Dictated by: Dictated on workstation # [id number] Dict: 07/12/22918 Trans: 07/12/22 0954 [id number] Interpreted by: MARELY LIND MD Electronically signed by: MARELY LIND MD 07/12/22 0954 [facility] [place] NAME[facility] REC#: [id number] PT STATUS: REG ER : 1932 PHYSICIAN: SARAH JACKSON DO ADMIT DATE: 07/12/22/ER Signed Date of Exam:07/12/22 CT ANGIO CHEST W PROCEDURE: CT angiography of the chest with contrast. TECHNIQUE: Multiple contiguous axial images were obtained through the chest after uneventful bolus administration of intravenous contrast. 3D reconstructed CTA MIP acquisitions were also performed. Auto Exposure Controls were utilized during the CT exam to meet ALARA standards for radiation dose reduction. INDICATION: Dyspnea, hypoxia, leg swelling. COMPARISON: Chest x-ray from the same day FINDINGS: The pulmonary arteries are diagnostic to the proximal segmental level. There is motion artifact on multiple images. No filling defects are seen to indicate a pulmonary embolus. The heart is moderately large. There is minimal pericardial fluid without evangelina effusion seen. No mediastinal adenopathy is seen. There is no axillary adenopathy. There is no significant pleural effusion or pneumothorax. There are airspace opacities in the posterior right upper lobe with surrounding groundglass opacity. There is groundglass and airspace opacity in the right lower lobe as well. There appears to be chronic fibrotic change and atelectasis in the lungs bilaterally. No central endobronchial lesions are seen. No acute osseous abnormalities are identified. Imaged portions of the upper abdomen demonstrate no acute abnormality. There are multiple clips in the left breast. 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 IMPRESSION: 1. No pulmonary embolus. 2. Opacities in the right lung, likely pneumonia. This appears superimposed on chronic atelectasis and fibrosis. 3. Moderate cardiomegaly. 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
[2022-07-12] MEDS ORDERED: OMEG100032 PO (14:42)
[2022-07-12] MEDS ORDERED: ZINC56CR2 TP (14:42)
[2022-07-12] MEDS ORDERED: ALB0.5V INH (14:42)
[2022-07-12] MEDS ORDERED: TROL85CR37 TP (14:42)
[2022-07-12] MEDS ORDERED: CEFD300C3 PO (14:42)
[2022-07-12] MEDS ORDERED: ACET-2267 PO (14:42)
[2022-07-12] MEDS ORDERED: MV-M1CAP24 PO (14:42)
[2022-07-12] MEDS ORDERED: HYDR26CR2 TP (14:42)
[2022-07-12] MEDS ORDERED: CETI-458 PO (14:42)
[2022-07-12] MEDS ORDERED: CALC600T80 PO (14:44)
[2022-07-12] MEDS ORDERED: CALC-694 PO (14:46)
[2022-07-12] MEDS: CEFEPIME INJECTION 1,000 MG in NS (IVPB) 50 ML IV SCH ×2 (15:39→19:54)
[2022-07-12 16:56] VITALS: BP 136/68
[2022-07-12 19:34] VITALS: BP 154/81
[2022-07-12] MEDS: MELATONIN 3 MG TABLET PO PRN (19:54)
[2022-07-12 23:43] VITALS: BP 131/73
[2022-07-13] VITALS (7 sets, daily range): BP systolic 119–164; BP diastolic 57–83
[2022-07-13] MEDS: CEFEPIME INJECTION 1,000 MG in NS (IVPB) 50 ML IV SCH ×3 (04:39→19:54)
[2022-07-13 06:08] LABS: HEMATOCRIT 33 % (35-52); HEMOGLOBIN 11.5 g/dL (11.5-16.0); MEAN CORPUSCULAR HEMOGLOBIN 30 pg (25-34); MEAN CORPUSCULAR HGB CONC 35 g/dL (32-36); MEAN CORPUSCULAR VOLUME 87 fL (80-99); MEAN PLATELET VOLUME 9.6 fL (9.0-12.2); PLATELET COUNT 190 10^3/uL (130-400); WHITE BLOOD COUNT 4.2 10^3/uL (4.3-11.0)
[2022-07-13 06:28] LABS: POTASSIUM 4.2 MMOL/L (3.6-5.0)
[2022-07-13 06:29] LABS: CALCIUM 8.6 MG/DL (8.5-10.1)
[2022-07-13 06:33] LABS: CREATININE SERUM 0.9 MG/DL (0.60-1.30)
[2022-07-13] MEDS ORDERED: guaiFENesin (MUCINEX) 600 MG TAB PO PRN (08:45)
[2022-07-13] MEDS ORDERED: CALCIUM CARBONATE 500 MG (TUMS) TAB.CHEW PO PRN (08:45)
[2022-07-13] MEDS: LEVOTHYROXINE 100 MCG (LEVOTHROID) TAB PO SCH (09:53)
[2022-07-13] MEDS: LOSARTAN 100 MG (COZAAR) TABLET PO SCH (09:53)
[2022-07-13] MEDS: CALCIUM CARB + VIT D 600 MG (CALCARB + D) TAB PO SCH ×2 (09:53→19:53)
[2022-07-13] MEDS: ACETAMINOPHEN 500 MG TAB (TYLENOL) PO SCH ×2 (09:54→19:53)
[2022-07-13] MEDS: TROLAMINE (ASPERCREME) 10% CR 90 GM TUBE TP SCH ×2 (09:55→19:53)
[2022-07-13] MEDS: ZINC OXIDE 16% OINT (BUTT PASTE) 57 GM TUBE TOP SCH ×2 (09:56→19:53)
[2022-07-13] MEDS ORDERED: VANCOMYCIN 1 GM/NS 250 ML IVPB IV SCH ×2 (11:00)
--- NOTE | 2022-07-13 11:12 | Progress Note - Hospitalist ---
Subjective HPI/CC On Admission Date Seen by Provider: Jul 13, 2022 Pt is an 89yoCF who presented to the ER due to shortness of breath. This has been going on for about [address] Larry prescribed oral abx and breathing treatments. Despite this she has continued to worsen so presented to the ER. She was hypoxic for EMS at 87% and placed on nasal cannula but was mouth breathing so switched to an oximask at 4lpm. She was found to have a right sided pneumonia and admitted for further management and IV abx. She denies any fevers but has been cold. She is coughing but it is nonproductive. Subjective/Events-last exam Pt reports doing better today. Breathing improving. No complaints. Daughter at bedside states pt more weak than normal and request PT. Focused Exam Lactate Level 07/12/22 09:05: Lactic Acid Level 1.18 Objective Exam Vital Signs Vital Signs Date Time Temp Pulse Resp B/P (MAP) Pulse Ox O2 Delivery O2 Flow Rate FiO2 07/13/22 10:29 94 OxyMask 5.00 07/13/22 10:17 37.1 78 40 07/13/22 08:08 20 164/82 (109) Capillary Refill : Less Than 3 Seconds General Appearance: No Apparent Distress, Chronically ill Respiratory: Crackles (right, improved from yesterday); No Wheezing; Other (on oxi mask) Cardiovascular: Regular Rate, Rhythm Gastrointestinal: Normal Bowel Sounds, Soft Neurologic/Psychiatric: Alert, Oriented x3 (to major details only) Results/Procedures Lab Laboratory Tests 07/13/22 05:57 Patient resulted labs reviewed. Imaging: Reviewed Imaging Report Assessment/Plan Assessment and Plan Assess & Plan/Chief Complaint Acute hypoxic respiratory failure HCAP Debility Continue IV abx, DC Vanc Await cultures- pending still MAT protocol Wean oxygen as able PT/OT HTN Trend BP, resume home meds Dementia DNR At baseline Hasmimoto's thyroiditis Continue home meds Diagnosis/Problems Diagnosis/Problems (1) Acute respiratory failure (2) Dementia (3) DNR (do not resuscitate) (4) HCAP (healthcare-associated pneumonia) Status: Acute (5) Hypothyroidism Status: Chronic (6) Advanced age Status: Chronic (7) HTN (hypertension) Status: Acute MAEVE RAMESH MD Jul 13, 2022 11:12 am
[2022-07-13] MEDS: RT-ALBUTEROL SULF 2.5 MG/3 ML PRE-MIX VIAL INH PRN (11:14)
[2022-07-13] MEDS: ENOXAPARIN 40 MG/0.4 ML (LOVENOX) SYR SQ SCH (13:49)
[2022-07-13] MEDS: RT-ALBUTEROL SULF 2.5 MG/3 ML PRE-MIX VIAL INH SCH ×3 (14:54→21:41)
[2022-07-13] MEDS: amLODIPine 5 MG (NORVASC) TAB PO SCH (18:28)
[2022-07-13] MEDS: LORATADINE (CLARITIN) 10 MG TAB PO SCH (18:28)
[2022-07-14] MEDS: RT-ALBUTEROL SULF 2.5 MG/3 ML PRE-MIX VIAL INH SCH ×6 (03:03→23:35)
[2022-07-14 04:05] VITALS: BP 170/85
[2022-07-14] MEDS: LEVOTHYROXINE 100 MCG (LEVOTHROID) TAB PO SCH (05:13)
[2022-07-14] MEDS: CEFEPIME INJECTION 1,000 MG in NS (IVPB) 50 ML IV SCH ×3 (05:13→20:04)
[2022-07-14 05:20] LABS: HEMATOCRIT 31 % (35-52); HEMOGLOBIN 10.4 g/dL (11.5-16.0); MEAN CORPUSCULAR HEMOGLOBIN 30 pg (25-34); MEAN CORPUSCULAR HGB CONC 34 g/dL (32-36); MEAN CORPUSCULAR VOLUME 87 fL (80-99); MEAN PLATELET VOLUME 9.3 fL (9.0-12.2); PLATELET COUNT 178 10^3/uL (130-400); WHITE BLOOD COUNT 3.8 10^3/uL (4.3-11.0)
[2022-07-14 05:36] LABS: CALCIUM 8.3 MG/DL (8.5-10.1); CREATININE SERUM 0.84 MG/DL (0.60-1.30)
[2022-07-14 07:36] VITALS: BP 161/76
[2022-07-14] MEDS: ACETAMINOPHEN 500 MG TAB (TYLENOL) PO SCH ×2 (07:54→20:04)
[2022-07-14] MEDS: ZINC OXIDE 16% OINT (BUTT PASTE) 57 GM TUBE TOP SCH ×2 (07:54→20:05)
[2022-07-14] MEDS: LOSARTAN 100 MG (COZAAR) TABLET PO SCH (07:54)
[2022-07-14] MEDS: CALCIUM CARB + VIT D 600 MG (CALCARB + D) TAB PO SCH ×2 (07:54→20:04)
[2022-07-14] MEDS: TROLAMINE (ASPERCREME) 10% CR 90 GM TUBE TP SCH ×2 (07:54→20:05)
[2022-07-14] MEDS: RT-ALBUTEROL SULF 2.5 MG/3 ML PRE-MIX VIAL INH PRN (07:55)
[2022-07-14] MEDS ORDERED: TROUGH ORDER-PHARMACY XX ONE (10:00)
[2022-07-14 11:34] VITALS: BP 119/70
[2022-07-14] MEDS: ENOXAPARIN 40 MG/0.4 ML (LOVENOX) SYR SQ SCH (12:23)
--- NOTE | 2022-07-14 12:29 | Progress Note - Hospitalist ---
Subjective HPI/CC On Admission Date Seen by Provider: Jul 14, 2022 Pt is an 89yoCF who presented to the ER due to shortness of breath. This has been going on for about [address] Larry prescribed oral abx and breathing treatments. Despite this she has continued to worsen so presented to the ER. She was hypoxic for EMS at 87% and placed on nasal cannula but was mouth breathing so switched to an oximask at 4lpm. She was found to have a right sided pneumonia and admitted for further management and IV abx. She denies any fevers but has been cold. She is coughing but it is nonproductive. Subjective/Events-last exam Pt reports doing better today. On NC now. Up to chair. Daughter at bedside. No concerns. Focused Exam Lactate Level 07/12/22 09:05: Lactic Acid Level 1.18 Objective Exam Vital Signs Vital Signs Date Time Temp Pulse Resp B/P (MAP) Pulse Ox O2 Delivery O2 Flow Rate FiO2 07/14/22 11:34 37.2 78 19 119/70 (86) 91 Nasal Cannula 2.00 07/13/22 10:17 40 Capillary Refill : Less Than 3 Seconds General Appearance: No Apparent Distress, WD/WN Respiratory: No Respiratory Distress, Crackles (right base) Cardiovascular: Regular Rate, Rhythm, No Murmur Neurologic/Psychiatric: Alert, Oriented x3 Results/Procedures Lab Laboratory Tests 07/14/22 04:55 Patient resulted labs reviewed. Imaging: Reviewed Imaging Report Assessment/Plan Assessment and Plan Assess & Plan/Chief Complaint Acute hypoxic respiratory failure HCAP Debility Continue IV abx, DC Vanc BC NGTD MAT protocol Wean oxygen as able- down to HFNC PT/OT HTN Trend BP, Continue home meds Dementia DNR At baseline Hasmimoto's thyroiditis Continue home meds Diagnosis/Problems Diagnosis/Problems (1) Acute respiratory failure (2) Dementia (3) DNR (do not resuscitate) (4) HCAP (healthcare-associated pneumonia) Status: Acute (5) Hypothyroidism Status: Chronic (6) Advanced age Status: Chronic (7) HTN (hypertension) Status: Acute MAEVE RAMESH MD Jul 14, 2022 12:29 pm
[2022-07-14 16:00] VITALS: BP 150/72
[2022-07-14 16:57] VITALS: BP 110/60
[2022-07-14] MEDS: amLODIPine 5 MG (NORVASC) TAB PO SCH (18:03)
[2022-07-14] MEDS: LORATADINE (CLARITIN) 10 MG TAB PO SCH (18:03)
[2022-07-14 19:28] VITALS: BP 173/83
[2022-07-15] VITALS (8 sets, daily range): BP systolic 139–176; BP diastolic 64–86
[2022-07-15] MEDS: RT-ALBUTEROL SULF 2.5 MG/3 ML PRE-MIX VIAL INH SCH ×6 (02:39→22:10)
[2022-07-15] MEDS: CEFEPIME INJECTION 1,000 MG in NS (IVPB) 50 ML IV SCH ×3 (04:15→20:04)
[2022-07-15 06:02] LABS: HEMATOCRIT 31 % (35-52); HEMOGLOBIN 10.9 g/dL (11.5-16.0); MEAN CORPUSCULAR HEMOGLOBIN 30 pg (25-34); MEAN CORPUSCULAR HGB CONC 35 g/dL (32-36); MEAN CORPUSCULAR VOLUME 86 fL (80-99); MEAN PLATELET VOLUME 9.4 fL (9.0-12.2); PLATELET COUNT 215 10^3/uL (130-400); WHITE BLOOD COUNT 4.1 10^3/uL (4.3-11.0)
[2022-07-15 06:17] LABS: CALCIUM 8.5 MG/DL (8.5-10.1); CREATININE SERUM 0.81 MG/DL (0.60-1.30); POTASSIUM 3.9 MMOL/L (3.6-5.0)
[2022-07-15] MEDS: LEVOTHYROXINE 100 MCG (LEVOTHROID) TAB PO SCH (06:21)
[2022-07-15] MEDS: LOSARTAN 100 MG (COZAAR) TABLET PO SCH (08:54)
[2022-07-15] MEDS: ACETAMINOPHEN 500 MG TAB (TYLENOL) PO SCH ×2 (08:54→20:04)
[2022-07-15] MEDS: ZINC OXIDE 16% OINT (BUTT PASTE) 57 GM TUBE TOP SCH ×2 (08:54→20:05)
[2022-07-15] MEDS: CALCIUM CARB + VIT D 600 MG (CALCARB + D) TAB PO SCH ×2 (08:54→20:04)
[2022-07-15] MEDS: amLODIPine 10 MG (NORVASC) TAB PO SCH (08:54)
[2022-07-15] MEDS: TROLAMINE (ASPERCREME) 10% CR 90 GM TUBE TP SCH ×2 (08:54→20:05)
--- NOTE | 2022-07-15 09:41 | Occupational Therapy Eval ---
OT Evaluation-General/PLF Medical Diagnosis Admission Date Jul 12, 2022 at 11:55 Medical Diagnosis: Acute hypoxic respiratory failure Onset Date: Jul 12, 2022 Therapy Diagnosis Therapy Diagnosis: weakness, debility Height/Weight Height (Feet): 5 Height (Inches): 4.00 Weight (Pounds): 140 Precautions Precautions/Isolations: Standard Precautions Weight Bear Status Weight Bearing Restriction: Full Weight Bearing Referral Referral Reason: Evaluation/Treatment Medical History Pertinent Medical History: Dementia, HTN, Hypothroidism Additional Medical History Pt is an 89yoCF who presented to the ER due to shortness of breath. This has been going on for about [address] Larry prescribed oral abx and breathing treatments. Despite this she has continued to worsen so presented to the ER. She was hypoxic for EMS at 87% and placed on nasal cannula but was mouth breathing so switched to an oximask at 4lpm. She was found to have a right sided pneumonia and admitted for further management and IV abx. She denies any fevers but has been cold. She is coughing but it is nonproductive. Current History 02 93% A at rest Social History Home: Assisted Living ([facility]) Current Living Status: Alone Entry Into Home: Level Entry ADL-Prior Level of Function SCALE: Activities may be completed with or without assistive devices. 4-Cvszawljil-undxeal completes the activity by him/herself with no assistance from a helper. 5-Set-up or Clean-up Assistance-helper sets up or cleans up; patient completes activity. [place] assists only prior to or following the activity. 4-Supervision or Touching Assistance-helper provides verbal cues and/or touching/steadying and/or contact guard assistance as patient completes activity. Assistance may be provided throughout the activity or intermittently. 3-Partial/Moderate Assistance-helper does LESS THAN HALF the effort. [place] lifts, holds or supports trunk or limbs, but provides less than half the effort. 2-Substantial/Maximal Assistance-helper does MORE THAN HALF the effort. [place] lifts or holds trunk or limbs and provides more than half the effort. 4-Avycgajsr-fqblbo does ALL the effort. Patient does none of the effort to complete the activity. Or, the assistance of 2 or more helpers is required for the patient to complete the activity. If activity was not attempted, code reason: 7-Patient Refused. 9-Not Applicable-not attempted and the patient did not perform the activity before the current illness, exacerbation or injury. 10-Not Attempted due to Environmental Limitations-(lack of equipment, weather restraints, etc.). 88-Not Attempted due to Medical Conditions or Safety Concerns. Self Care: Needed Some Help Functional Cognition: Needed Some Help DME/Equipment Comments Requires assist w/ all ADLs, is urine incont. Ambulates w/ 4ww/seat to meals, has a chair alarm in her apartment. Patient did not wear 02prior to hospital adm ission Drive Self: No OT Current Status Subjective Agreeable to OT, extreme fear of falling Mental Status/Objective Patient Orientation: Person, Confused Attachments: Oxygen Current Glasses/Contacts: Yes Upper Extremity ROM chronic LUE ROM limitations less than 30 degrees flexion/abduction 10 degrees IR to reach behind back and extend shoulder Upper Extremity Strength Patient is strong WFL as observed w/ resistance against functional activity ADL-Treatment Eating (QC): 6 Oral Hygiene (QC): 4 Shower/Bathe Self (QC): 7 Upper Body Dressing (QC): 3 Lower Body Dressing (QC): 1 On/Off Footwear (QC): 1 Toileting Hygiene (QC): 1 Resistive to perform transfers. Education OT Patient Education: Correct positioning, Exercise program, Modified ADL techniques, Progress toward Goal/Update tx plan, Purpose of tx/functional activities, Reviewed precautions, Rehab process, Safety issues, Transfer techniques, Use of adapted equipment Teaching Recipient: Patient, Family Teaching Methods: Demonstration, Discussion Response to Teaching: Verbalize Understanding, Reinforcement Needed OT Upholstery Technician Goals Upholstery Technician Goals Eating (QC): 6 Oral Hygiene (QC): 6 Toileting Hygiene (QC): 4 Shower/Bathe Self (QC): 4 Upper Body Dressing (QC): 4 Lower Body Dressing (QC): 4 On/Off Footwear (QC): 4 1=Demonstrate adherence to instructed precautions during ADL tasks. 2=Patient will verbalize/demonstrate understanding of assistive pablo sandra/modifications for ADL. 3=Patient will improve strength/tolerance for activity to enable patient to perform ADL's. OT Education/Plan Problem List/Assessment Assessment: Decreased Activ Tolerance, Decreased Safety Aware, Impaired Coordination, Impaired Funct Balance, Impaired Self-Care Skills, Restricted Funct UE ROM Discharge Recommendations Plan/Recommendations: Continue POC Therapy Discharge Recommendati: Post Acute OT Treatment Plan/Plan of Care Treatment,Training & Education: Yes Patient would benefit from OT for education, treatment and training to promote independence in ADL's, mobility, safety and/or upper extremity function for ADL's. Plan of Care: ADL Retraining, Functional Mobility, Group Exercise/Act as Ind, UE Funct Exercise/Act Treatment Duration: Jul 27, 2022 Frequency: 3 times per week (3-5 times per week) Estimated Hrs Per Day: .25 hour per day Agreement: Yes Rehab Potential: Guarded Time Start Time: 09:38 Stop Time: 09:58 DATE: Jul 15, 2022 Total Time Billed (hr/min): 20 Billed Treatment Time EVM 20 min CHUY ARMENDARIZ OT Jul 15, 2022 09:41
--- NOTE | 2022-07-15 10:52 | Physical Therapy Evaluation ---
PT Evaluation-General Medical Diagnosis Admission Date Jul 12, 2022 at 11:55 Medical Diagnosis: Acute hypoxic respiratory failure Onset Date: Jul 12, 2022 Therapy Diagnosis Therapy Diagnosis: generalized weakness/debility Height/Weight Height (Feet): 5 Height (Inches): 4.00 Weight (Pounds): 140 Precautions Precautions/Isolations: Fall Prevention, Standard Precautions Referral Physician: Chase Reason for Referral: Evaluation/Treatment Medical History Pertinent Medical History: Dementia, HTN, Hypothroidism Current History EMS secondary to SOA x 2 weeks Social History Home: Assisted Living ([facility]) Entry Into Home: Level Entry Prior Prior Level of Function SCALE: Activities may be completed with or without assistive devices. 9-Cjfjytftfb-nzovjrq completes the activity by him/herself with no assistance from a helper. 5-Set-up or Clean-up Assistance-helper sets up or cleans up; patient completes activity. [place] assists only prior to or following the activity. 4-Supervision or Touching Assistance-helper provides verbal cues and/or touching/steadying and/or contact guard assistance as patient completes activity. Assistance may be provided throughout the activity or intermittently. 3-Partial/Moderate Assistance-helper does LESS THAN HALF the effort. [place] lifts, holds or supports trunk or limbs, but provides less than half the effort. 2-Substantial/Maximal Assistance-helper does MORE THAN HALF the effort. [place] lifts or holds trunk or limbs and provides more than half the effort. 3-Spjkcakyy-bfdkwu does ALL the effort. Patient does none of the effort to complete the activity. Or, the assistance of 2 or more helpers is required for the patient to complete the activity. If activity was not attempted, code reason: 7-Patient Refused. 9-Not Applicable-not attempted and the patient did not perform the activity before the current illness, exacerbation or injury. 10-Not Attempted due to Environmental Limitations-(lack of equipment, weather restraints, etc.). 88-Not Attempted due to Medical Conditions or Safety Concerns. Indoor Mobility (Ambulation): Needed Some Help Prior Devices Use: Walker unable to determine due to current LOF and patient's inability to appropriately respond PT Evaluation-Current Subjective Patient repeats, "I'm afraid I'm going to fall." Objective Patient Orientation: Confused Attachments: Oxygen ROM/Strength ROM Lower Extremities bilateral LE WFL Strength Lower Extremities 3-/5 grossly bilateral LE all planes Integumentary/Posture Bladder Incontinence: Yes Posture trunk flexed posture Neuromuscular (Tone, Coordination, Reflexes) diminished coordination due to weakness Sensory Vision: Wears Glasses Hearing: Impaired Transfers Sit to Lying (QC): 1 Lying to Sitting/Side of Bed(Q: 1 Sit to Stand (QC): 1 (x 2) Chair/Dhs-xr-Feecl Xfer(QC): 1 (x 2) Gait Walk 10 feet (QC): 1 (x 2) Walk 50 ft with 2 Turns(QC): 1 (x 2) Walk 150 ft (QC): 88 Distance: 50' Gait Assistive Device: FWW Comments/Gait Description patient severely retropulsive and resistive requiring dependent assist of 2 to advance FWW and keep patient upright Balance Sitting Static: Poor Sitting Dynamic: Poor Standing Static: Poor Standing Dynamic: Poor Assessment/Needs Patient is currently dependent with all mobility and very resistive due to weakness and fear. Patient will benefit from skilled PT to address functional strength and mobility to improve current LOF. Rehab Potential: Guarded PT Scuba Dive Training Instructor Goals Detention Goals PT Detention Goals Time Frame: Aug 03, 2022 Roll Left & Right (QC): 3 Sit to Lying (QC): 3 Lying-Sitting on Side/Bed(QC): 3 Sit to Stand (QC): 3 Chair/Hyc-ou-Uhqmn Xfer(QC): 3 Toilet Transfer (QC): 3 Walk 10 feet (QC): 3 Walk 50ft with 2 Turns (QC): 3 PT Plan Problem List Problem List: Activity Tolerance, Functional Strength, Safety, Balance, Gait, Transfer, Bed Mobility Treatment/Plan Treatment Plan: Continue Plan of Care Treatment Plan: Bed Mobility, Education, Functional Activity Viet, Functional Strength, Gait, Safety, Therapeutic Exercise, Transfers Treatment Duration: Aug 03, 2022 Frequency: 6 times per week Estimated Hrs Per Day: .25 hour per day Time Time In: 935 Time Out: 953 DATE: Jul 15, 2022 Total Billed Treatment Time: 18 Total Billed Treatment 1 visit EVMod 18 min KAMERON BUSCH PT Jul 15, 2022 10:52
[2022-07-15] MEDS: ENOXAPARIN 40 MG/0.4 ML (LOVENOX) SYR SQ SCH (12:17)
[2022-07-15] MEDS ORDERED: AMLO-251 PO (14:23)
[2022-07-15] MEDS ORDERED: CEFD300C3 PO (14:23)
--- NOTE | 2022-07-15 17:08 | Progress Note - Hospitalist ---
Subjective HPI/CC On Admission Date Seen by Provider: Jul 15, 2022 Time Seen by Provider: 12:30 Pt is an 89yoCF who presented to the ER due to shortness of breath. This has been going on for about [address] Larry prescribed oral abx and breathing treatments. Despite this she has continued to worsen so presented to the ER. She was hypoxic for EMS at 87% and placed on nasal cannula but was mouth breathing so switched to an oximask at 4lpm. She was found to have a right sided pneumonia and admitted for further management and IV abx. She denies any fevers but has been cold. She is coughing but it is nonproductive. Subjective/Events-last exam She is doing well. She is sitting in her chair. She has no complaints. Her daughter is present. We discussed discharge options. They would like to return to her assisted living facility if possible and would be ok with [facility]pc temporarily if needed. Objective Exam Vital Signs Vital Signs Date Time Temp Pulse Resp B/P (MAP) Pulse Ox O2 Delivery O2 Flow Rate FiO2 07/15/22 15:25 36.3 77 18 163/86 (111) 93 Nasal Cannula 3.00 07/13/22 10:17 40 Capillary Refill : Less Than 3 Seconds General Appearance: No Apparent Distress, WD/WN Respiratory: Lungs Clear, No Respiratory Distress Cardiovascular: Regular Rate, Rhythm, No Murmur Gastrointestinal: Normal Bowel Sounds, Soft Extremity: Normal Inspection, No Pedal Edema Neurologic/Psychiatric: Alert, Motor Weakness Skin: Normal Color, Warm/Dry Results/Procedures Lab Laboratory Tests 07/15/22 05:43 Patient resulted labs reviewed. Imaging: Reviewed Imaging Report Assessment/Plan Assessment and Plan Assess & Plan/Chief Complaint Acute hypoxic respiratory failure HCAP Debility Continue Cefepime Home oxygen evaluation, 3 L continuously PT/OT Plan discharge back to assisted living tomorrow HTN Increase Amlodipine Dementia DNR At baseline Hasmimoto's thyroiditis Continue home meds Diagnosis/Problems Diagnosis/Problems (1) Acute respiratory failure Status: Acute Qualifiers: Respiratory failure complication: hypoxia Qualified Codes: J96.01 - Acute respiratory failure with hypoxia (2) HCAP (healthcare-associated pneumonia) Status: Acute (3) HTN (hypertension) Status: Acute (4) Advanced age Status: Chronic (5) Dementia Status: Chronic LEO REINA MD Jul 15, 2022 17:08
[2022-07-15] MEDS ORDERED: hydrALAZINE (APESOLINE) 20 MG/ML VIAL IV PRN (17:15)
[2022-07-15] MEDS: LORATADINE (CLARITIN) 10 MG TAB PO SCH (18:14)
[2022-07-16] VITALS (8 sets, daily range): BP systolic 139–165; BP diastolic 68–80
[2022-07-16] MEDS: CEFEPIME INJECTION 1,000 MG in NS (IVPB) 50 ML IV SCH ×3 (05:19→20:07)
[2022-07-16] MEDS: LEVOTHYROXINE 100 MCG (LEVOTHROID) TAB PO SCH (05:19)
[2022-07-16 05:54] LABS: HEMATOCRIT 33 % (35-52); HEMOGLOBIN 11.5 g/dL (11.5-16.0); MEAN CORPUSCULAR HEMOGLOBIN 30 pg (25-34); MEAN CORPUSCULAR HGB CONC 35 g/dL (32-36); MEAN CORPUSCULAR VOLUME 85 fL (80-99); MEAN PLATELET VOLUME 9.5 fL (9.0-12.2); PLATELET COUNT 242 10^3/uL (130-400); WHITE BLOOD COUNT 4.2 10^3/uL (4.3-11.0)
[2022-07-16 06:16] LABS: CALCIUM 8.9 MG/DL (8.5-10.1); CREATININE SERUM 0.75 MG/DL (0.60-1.30); POTASSIUM 3.7 MMOL/L (3.6-5.0)
[2022-07-16] MEDS: RT-ALBUTEROL SULF 2.5 MG/3 ML PRE-MIX VIAL INH SCH ×2 (06:40→20:57)
[2022-07-16] MEDS: LOSARTAN 100 MG (COZAAR) TABLET PO SCH (08:57)
[2022-07-16] MEDS: ACETAMINOPHEN 500 MG TAB (TYLENOL) PO SCH ×2 (08:58→20:06)
[2022-07-16] MEDS: TROLAMINE (ASPERCREME) 10% CR 90 GM TUBE TP SCH ×2 (08:58→20:08)
[2022-07-16] MEDS: CALCIUM CARB + VIT D 600 MG (CALCARB + D) TAB PO SCH ×2 (08:58→20:06)
[2022-07-16] MEDS: ZINC OXIDE 16% OINT (BUTT PASTE) 57 GM TUBE TOP SCH ×2 (08:58→20:08)
[2022-07-16] MEDS: amLODIPine 10 MG (NORVASC) TAB PO SCH (08:58)
--- NOTE | 2022-07-16 10:17 | Physical Therapy Daily Note ---
PT Daily Note-Current Subjective Patient unable to follow simple direction on this date. RN made aware. Family present. Pain Section J - Health Conditions 1. Rarely or not at all 2. Occasionally 3. Frequently 4. Almost constantly 8. Unable to answer Pain Effect on Sleep: 8 Pain Interference with Therapy: 8 Pain Interference w/Day-to-Day: 8 Mental Status Patient Orientation: Confused Attachments: Oxygen Transfers SCALE: Activities may be completed with or without assistive devices. 5-Bjdztkzqsq-xyjvsjd completes the activity by him/herself with no assistance from a helper. 5-Set-up or Clean-up Assistance-helper sets up or cleans up; patient completes activity. [place] assists only prior to or following the activity. 4-Supervision or Touching Assistance-helper provides verbal cues and/or touching/steadying and/or contact guard assistance as patient completes activity. Assistance may be provided throughout the activity or intermittently. 3-Partial/Moderate Assistance-helper does LESS THAN HALF the effort. [place] lifts, holds or supports trunk or limbs, but provides less than half the effort. 2-Substantial/Maximal Assistance-helper does MORE THAN HALF the effort. [place] lifts or holds trunk or limbs and provides more than half the effort. 2-Kehsmemaa-cjgshh does ALL the effort. Patient does none of the effort to complete the activity. Or, the assistance of 2 or more helpers is required for the patient to complete the activity. If activity was not attempted, code reason: 7-Patient Refused. 9-Not Applicable-not attempted and the patient did not perform the activity before the current illness, exacerbation or injury. 10-Not Attempted due to Environmental Limitations-(lack of equipment, weather restraints, etc.). 88-Not Attempted due to Medical Conditions or Safety Concerns. Roll Left & Right (QC): 1 (x 2) Sit to Lying (QC): 1 (x 2) Lying to Sitting/Side of Bed(Q: 1 (x 2) Sit to Stand (QC): 88 Assessment Patient currently no safe for OOB activity. Patient dependent assist to return to bed (supine) with RN present to assess and take vitals. Patient very, very confused and unable to follow simple direction. RN report she will call physician. PT Insurance Risk Manager Goals Insurance Risk Manager Goals PT Mcc Goals Time Frame: Aug 03, 2022 Roll Left & Right (QC): 3 Sit to Lying (QC): 3 Lying-Sitting on Side/Bed(QC): 3 Sit to Stand (QC): 3 Chair/Ohz-uk-Wqdif Xfer(QC): 3 Toilet Transfer (QC): 3 Walk 10 feet (QC): 3 Walk 50ft with 2 Turns (QC): 3 PT Plan Treatment/Plan Treatment Plan: Continue Plan of Care Treatment Plan: Bed Mobility, Education, Functional Activity Viet, Functional Strength, Gait, Safety, Therapeutic Exercise, Transfers Treatment Duration: Aug 03, 2022 Frequency: 6 times per week Estimated Hrs Per Day: .25 hour per day Time Time In: 941 Time Out: 951 DATE: Jul 16, 2022 Total Billed Treatment Time: 10 Total Billed Treatment 1 visit FA 10 min KAMERON BUSCH PT Jul 16, 2022 10:17
--- NOTE | 2022-07-16 10:48 | Diagnostic Imaging Report ---
INDICATION: Altered mental status. TECHNIQUE: Multiple contiguous axial images were obtained through the brain without the use of intravenous contrast. Auto Exposure Controls were utilized during the CT exam to meet ALARA standards for radiation dose reduction. Comparison made to 11/26/2021. FINDINGS: There are fairly extensive atrophic changes throughout both hemispheres. There is extensive low-density change in deep white matter compatible with chronic ischemic change. There is no acute hemorrhage or subdural or epidural collection. Ventricles are normal in size for age. There is a small amount of fluid in both maxillary sinuses. There is opacification of the ethmoid air cells and fluid levels in the frontal sinuses. Calvarial windows are unremarkable. IMPRESSION: Atrophy and chronic ischemic changes in deep white matter. Underlying sinus disease as described above. Dictated by: Dictated on workstation # [id number]
--- NOTE | 2022-07-16 11:04 | Occupational Ther Daily Note ---
OT Current Status-Daily Note Subjective Patient reclined in bd, OT facilitated sitting EOB w/ max Assistance and patient not following instruction, residual food in mouth, patient unable to close mouth over straw and voices "NO", Patient unable to sit unsupported EOB. Returned to reclined positn in bed assist of 2, OT noted yellowed eyes and family reports NEW condition, RN notified Mental Status/Objective Patient Orientation: Confused During bed mobility patient clenches at OT clothing and arm and hand, patient reports "NO" when asked if painful, OT assesses tactile stimulation of BLES and patient retracts BLES and moans in pain. Limited visual tracing noted to right. ADL-Treatment NO ADLS performed as patient not following instruction and no po intake risk of aspiration at this time Therapy Code Descriptions/Definitions Functional [place] Measure: 0=Not Assessed/NA 4=Minimal Assistance 1=Total Assistance 5=Supervision or Setup 2=Maximal Assistance 6=Modified [place] 3=Moderate Assistance 7=Complete IndependenceSCALE: Activities may be completed with or without assistive devices. 6-Hcszyvlozf-esqohal completes the activity by him/herself with no assistance from a helper. 5-Set-up or Clean-up Assistance-helper sets up or cleans up; patient completes activity. [place] assists only prior to or following the activity. 4-Supervision or Touching Assistance-helper provides verbal cues and/or touching/steadying and/or contact guard assistance as patient completes activity. Assistance may be provided throughout the activity or intermittently. 3-Partial/Moderate Assistance-helper does LESS THAN HALF the effort. [place] lifts, holds or supports trunk or limbs, but provides less than half the effort. 2-Substantial/Maximal Assistance-helper does MORE THAN HALF the effort. [place] lifts or holds trunk or limbs and provides more than half the effort. 4-Pvavvcelp-seyzdi does ALL the effort. Patient does none of the effort to complete the activity. Or, the assistance of 2 or more helpers is required for the patient to complete the activity. If activity was not attempted, code reason: 7-Patient Refused. 9-Not Applicable-not attempted and the patient did not perform the activity before the current illness, exacerbation or injury. 10-Not Attempted due to Environmental Limitations-(lack of equipment, weather restraints, etc.). 88-Not Attempted due to Medical Conditions or Safety Concerns. Education OT Patient Education: Instructions to caregiver, Safety issues Teaching Recipient: Patient, Family Teaching Methods: Discussion OT Agricultural Engineering Teacher Goals Agricultural Engineering Teacher Goals Eating (QC): 6 Oral Hygiene (QC): 6 Toileting Hygiene (QC): 4 Shower/Bathe Self (QC): 4 Upper Body Dressing (QC): 4 Lower Body Dressing (QC): 4 On/Off Footwear (QC): 4 1=Demonstrate adherence to instructed precautions during ADL tasks. 2=Patient will verbalize/demonstrate understanding of assistive devices/modifications for ADL. 3=Patient will improve strength/tolerance for activity to enable patient to perform ADL's. OT Education/Plan Discharge Recommendations Plan/Recommendations: Continue POC Treatment Plan/Plan of Care Patient would benefit from OT for education, treatment and training to promote independence in ADL's, mobility, safety and/or upper extremity function for ADL's. Plan of Care: ADL Retraining, Functional Mobility, Group Exercise/Act as Ind, UE Funct Exercise/Act Treatment Duration: Jul 27, 2022 Frequency: 3 times per week (3-5 times per week) Estimated Hrs Per Day: .25 hour per day Agreement: Yes Rehab Potential: Guarded Time Start Time: 09:30 Stop Time: 09:53 DATE: Jul 16, 2022 Total Time Billed (hr/min): 23 Billed Treatment Time FA 2 23min CHUY ARMENDARIZ OT Jul 16, 2022 11:04
[2022-07-16] MEDS: ENOXAPARIN 40 MG/0.4 ML (LOVENOX) SYR SQ SCH (13:52)
[2022-07-16] MEDS: D5 1/2 NS W/KCL 20 MEQ/L 1,000 ML IV SCH (13:52)
--- NOTE | 2022-07-16 14:15 | Diagnostic Imaging Report ---
PROCEDURE: MR imaging of the brain without contrast. TECHNIQUE: Multiplanar, multisequence MR imaging of the brain was performed without contrast. INDICATION: Confusion. FINDINGS: There are no prior MRI examinations available for comparison. The CT head exam performed earlier today at 10:14 a.m. failed to show any sign of an acute intracranial abnormality. Unfortunately, this exam is incomplete. Due to the patient's agitated state, only the diffusion series could be obtained. There is no abnormal signal arising from the brain on the diffusion series to suggest an area of acute ischemia. There is no mass or shift of the midline. The ventricles are prominent but no different than on the CT exam. The senescent changes including periventricular encephalomalacia and cortical atrophy seen on the CT exam are also again visualized. IMPRESSION: 1. This study is limited as only the diffusion sequence could be obtained. There is no abnormal signal arising from the brain on the diffusion series however to indicate an area of acute ischemia. 2. These results were discussed with Dr. Britt Brody at the time of this dictation. Dictated by: Dictated on workstation # [id number]
--- NOTE | 2022-07-16 16:39 | Progress Note - Hospitalist ---
Subjective HPI/CC On Admission Date Seen by Provider: Jul 16, 2022 Time Seen by Provider: 10:40 Pt is an 89yoCF who presented to the ER due to shortness of breath. This has been going on for about [address] Larry prescribed oral abx and breathing treatments. Despite this she has continued to worsen so presented to the ER. She was hypoxic for EMS at 87% and placed on nasal cannula but was mouth breathing so switched to an oximask at 4lpm. She was found to have a right sided pneumonia and admitted for further management and IV abx. She denies any fevers but has been cold. She is coughing but it is nonproductive. Subjective/Events-last exam She denies any complaints. She has been confused this morning. She has a left sided facial droop. Her left arm is very weak. She is getting confused with some questions. Objective Exam Vital Signs Vital Signs Date Time Temp Pulse Resp B/P (MAP) Pulse Ox O2 Delivery O2 Flow Rate FiO2 07/16/22 16:17 37.2 77 20 153/75 (101) 93 Nasal Cannula 3.00 07/13/22 10:17 40 Capillary Refill : Less Than 3 Seconds General Appearance: No Apparent Distress, WD/WN HEENT: Pharynx Normal, Other (PERRL, unable to follow commands to assess eye movements) Respiratory: Lungs Clear, No Respiratory Distress Cardiovascular: Regular Rate, Rhythm, No Murmur Gastrointestinal: Normal Bowel Sounds, Non Tender, Soft Extremity: Normal Inspection, No Pedal Edema, Other (legs tender bilaterally) Neurologic/Psychiatric: Alert, Disoriented, Facial Droop, Motor Weakness, Other (unable to follow commands consistently, left arm weakness, left facial droop) Results/Procedures Lab Laboratory Tests 07/16/22 05:20 Patient resulted labs reviewed. Imaging: Reviewed Imaging Report Assessment/Plan Assessment and Plan Assess & Plan/Chief Complaint Stroke like symptoms Last known well time last night before bed CT head without acute abnormalities MRI incomplete due to agitation, but no evidence of acute abnormalities identified on limited imaging, discussed with Dr. Terrell Begin aspirin and Lipitor Check lipid panel Echo ordered Carotid ultrasound ordered PT/OT/ST NPO until speech evaluation Acute hypoxic respiratory failure HCAP Debility Continue Cefepime Home oxygen evaluation, 3 L continuously HTN BP remains moderately elevated Continue Amlodipine and Losartan Begin HCTZ Hydralazine as needed Dementia DNR At baseline Hasmimoto's thyroiditis Continue home meds Diagnosis/Problems Diagnosis/Problems (1) Stroke-like symptoms Status: Acute (2) Acute respiratory failure Status: Acute Qualifiers: Respiratory failure complication: hypoxia Qualified Codes: J96.01 - Acute respiratory failure with hypoxia (3) HCAP (healthcare-associated pneumonia) Status: Acute (4) HTN (hypertension) Status: Acute (5) Advanced age Status: Chronic (6) Dementia Status: Chronic LEO REINA MD Jul 16, 2022 16:39
[2022-07-16 16:42] LABS: TRIGLYCERIDES 91 MG/DL (<150); VLDL CHOLESTEROL 18 MG/DL (5-40)
[2022-07-16 16:47] LABS: CHOLESTEROL 174 MG/DL (< 200)
[2022-07-16 16:48] LABS: HDL CHOLESTEROL 43 MG/DL (40-60)
[2022-07-16] MEDS ORDERED: HydroCHLOROthiazide CAP/TABLET 12.5 MG TAB PO NR (17:00)
[2022-07-16] MEDS: LORATADINE (CLARITIN) 10 MG TAB PO SCH (17:42)
[2022-07-16] MEDS: MELATONIN 3 MG TABLET PO PRN (20:06)
[2022-07-16 21:44] LABS: COLOR,URINE YELLOW
[2022-07-16 21:45] LABS: BACTERIA,URINE TRACE /HPF; BILIRUBIN,URINE NEGATIVE (NEGATIVE); CLARITY,URINE CLEAR; GLUCOSE, URINE (UA) NEGATIVE (NEGATIVE); KETONES,URINE NEGATIVE (NEGATIVE); LEUKOCYTE ESTERASE ,URINE 1+ (NEGATIVE); NITRITE,URINE NEGATIVE (NEGATIVE); PH,URINE 6.5 (5-9); PROTEIN,URINE 1+ (NEGATIVE); SQUAMOUS EPITHELIAL CELL,UR RARE /HPF
[2022-07-17] MEDS: D5 1/2 NS W/KCL 20 MEQ/L 1,000 ML IV SCH ×2 (02:37→10:31)
[2022-07-17] MEDS: CALCIUM CARB + VIT D 600 MG (CALCARB + D) TAB PO SCH ×2 (03:29→09:16)
[2022-07-17] MEDS: ACETAMINOPHEN 500 MG TAB (TYLENOL) PO SCH ×2 (03:30→09:17)
[2022-07-17 04:12] VITALS: BP 136/75
[2022-07-17] MEDS: CEFEPIME INJECTION 1,000 MG in NS (IVPB) 50 ML IV SCH (04:13)
[2022-07-17] MEDS: LEVOTHYROXINE 100 MCG (LEVOTHROID) TAB PO SCH (04:13)
[2022-07-17 05:27] LABS: HEMATOCRIT 33 % (35-52); HEMOGLOBIN 11.5 g/dL (11.5-16.0); MEAN CORPUSCULAR HEMOGLOBIN 30 pg (25-34); MEAN CORPUSCULAR HGB CONC 35 g/dL (32-36); MEAN CORPUSCULAR VOLUME 84 fL (80-99); PLATELET COUNT 271 10^3/uL (130-400); WHITE BLOOD COUNT 5.7 10^3/uL (4.3-11.0)
[2022-07-17 05:50] LABS: CALCIUM 8.9 MG/DL (8.5-10.1); CREATININE SERUM 0.75 MG/DL (0.60-1.30)
[2022-07-17] MEDS: RT-ALBUTEROL SULF 2.5 MG/3 ML PRE-MIX VIAL INH SCH (07:45)
--- NOTE | 2022-07-17 08:33 | Speech Therapy Progress Note ---
Therapy Progress Note ST received consultation and attempted the evaluation(s) at 0830. At this time, the patient is undergoing a procedure, ST to reattempt as schedule allows. MELIDA OLIVEIRA Jul 17, 2022 08:33
[2022-07-17 08:53] VITALS: BP 137/79
[2022-07-17] MEDS ORDERED: ASPIRIN E.C. 81 MG (ECOTRIN) TAB PO SCH (09:00)
[2022-07-17] MEDS ORDERED: HydroCHLOROthiazide CAP/TABLET 12.5 MG TAB PO SCH (09:00)
[2022-07-17] MEDS: LOSARTAN 100 MG (COZAAR) TABLET PO SCH (09:17)
[2022-07-17] MEDS: TROLAMINE (ASPERCREME) 10% CR 90 GM TUBE TP SCH (09:17)
[2022-07-17] MEDS: amLODIPine 10 MG (NORVASC) TAB PO SCH (09:17)
[2022-07-17] MEDS: ZINC OXIDE 16% OINT (BUTT PASTE) 57 GM TUBE TOP SCH (09:18)
--- NOTE | 2022-07-17 10:17 | Diagnostic Imaging Report ---
Clinical indication: Patient with stroke symptoms. Comparison: None Exam: Real-time ultrasound carotid Doppler duplex imaging is performed bilaterally with multiple real-time grayscale images obtained in various projections. Additional spectral analysis and color Doppler duple images were also obtained. Peak systolic velocity, ICA/CCA peak systolic ratio, spectral analysis, and vascular morphology are studied. Findings: ARTERY VELOCITY Right Left CCA 0.51 m/s 0.58 m/s ICA 0.46 m/s 0.45 m/s ECA 0.85 m/s 0.50 m/s ICA/CCA 0.9 0.8 VERT.ART Antegrade Antegrade There is minimal atherosclerotic disease involving bilateral carotid arteries. Impression: There is no grayscale or Doppler evidence of significant vascular stenosis. Dictated by: Dictated on workstation # [id number]
--- NOTE | 2022-07-17 11:27 | ST Dysphagia Evaluation ---
Speech Evaluation-General Medical Diagnosis Acute hypoxic Respiratory Failure Onset Date: Jul 12, 2022 Therapy Diagnosis Therapy Diagnosis: Impaired Oropharyngeal Swallow Function Precautions Precautions: Fall, Pressure Ulcer, Aspiration Precautions/Isolations: Aspiration, Fall Prevention, Pressure Ulcer Referral Referring Physician: Dr. Brody Reason for Referral: Evaluation/Treatment Medical History Pertinent Medical History: Dementia, HTN, Hypothroidism Reviewed History: Yes Social History Current Living Status: Alone Speech PLF/Current-Dysphagia Prior Level of Function Per patient's family (four members present at bedside), the patient tolerated a regular consistency diet with thin liquids at home and approximately two days prior. The patient's family denied the presence of s/s of suspected aspiration with P.O. intake. Subjective The patient was lying in bed, eyes opened, upon entrance to the patient's room by the clinician. The patient does not make eye contact when her name is verbally spoken by the clinician or provide a verbal greeting. Communicative intent is not present throughout interactions with the clinician. The patient was seated upright for safe swallowing position. Per patient's RN, the patient has experienced an over decline throughout the previous 24 hours and is no longer following directions or responding to yes/no questions. Cognitive Status Patient Orientation: Non-Verbal/Aphasic Oral Motor Skills Dentition: Edentalous Ability to Follow Directions: Unable (The patient does not follow simple, one- step directions with direct modeling provided. ) Oral Expression Ability: Severe Impairment Face Facial Symmetry: Asymmetrical Oral-Facial Assessment Oral-Facial Dentition: Normal Labial Seal Description: Weak Volitional Dry Swallow: No Voluntary Cough: No Can Clear Throat Volitionally: No Productive Cough: No Productive Throat Clear: No Dysphagia Evaluation Consistencies Presented: Thin Liquid (Ice chips, teaspoons), Pureed (Pureed with crushed medication (provided by RN)) The patient does not consistently accept oral bolus, requiring maximum verbal and tactile prompting from the clinician for limited P.O. intake. The patient is unable to draw material from a straw and does not appear to comprehend straw use at this time. The patient is able to display a weak seal around the teaspoon intermittently. The patient requires maximum verbal redirection to task, as she frequently turns head from side to side. Laryngeal elevation is present to palpation. A suspected pharyngeal delay is present with all consistencies. The patient is provided ice chips, half teaspoons of water, and half teaspoons of puree (two ounces total). Oral holding and pocketing behaviors were not present throughout the evaluation. The patient does require maximum verbal and tactile cueing from limited P.O. intake. While the patient's family report a baseline cough from a recent diagnosis of "bronchitis," the patient's cough becomes more present and appears to correlate with trials of thin liquid via teaspoon. No s/s of suspected aspiration were displayed with ice chips or trials of puree, however, limited amounts were consumed throughout an extended period of time. Dietary Recommendations: NPO Liquid Recommendations: NPO Recommendations: - The patient should remain N.P.O. at this time. - Frequent oral care to reduce the transfer of bacteria to the lungs if aspiration of secretions occur. - Ice chips, sparingly, for oral comfort and rehabilitation IF the patient is alert and seated upright. - Essential medication crushed and placed in applesauce for administration. - Speech pathology to assess the patient's progress daily. The results and recommendations were discussed with the patient, the patient's family, and the patient's RN immediately following completion. Dysphagia Evaluation Summary The patient displayed an impaired oropharyngeal swallow function characterized by reduced oral and lingual coordination and a delayed pharyngeal swallow. S/s of suspected aspiration were displayed with continuous trials of water via half teaspoon. Maximum verbal and tactile prompting was required for limited P.O. intake. Speech Short Term Goals Short Term Goals Short Term Goals 1. The patient will display safe swallowing precautions with 80% accuracy and moderate verbal and visual cueing. Time Frame-STG: Five Days. Speech Tissue Inserter Goals Tissue Inserter Goals 1. The patient will tolerate the least restrictive diet consistency without s/s of suspected aspiration. Time Frame: One Week. Speech-Plan Treatment Plan Speech Therapy Treatment Plan: Continue Plan of Care Treatment Duration: Jul 26, 2022 Frequency: 4 times per week Estimated Hrs Per Day: .25 hour per day Rehab Potential: Guarded Pt/Family Agrees to Plan: Yes Safety Risks/Education Teaching Recipient: Patient, Family Teaching Methods: Discussion Response to Teaching: Verbalize Understanding (Family.) Education Topics Provided: Results, Recommendations, Plan of Care Time Speech Therapy Time In: 08:48 Speech Therapy Time Out: 09:10 DATE: Jul 17, 2022 Total Billed Time: 22 Billed Treatment Time 1IDANIA DYST LOY, [facility] Jul 17, 2022 11:27
--- NOTE | 2022-07-17 11:47 | ST Cognitive Linguistic Eval ---
Speech Evaluation-General Medical Diagnosis Acute hypoxic Respiratory Failure Onset Date: Jul 12, 2022 Therapy Diagnosis Therapy Diagnosis: Expressive and Receptive Aphasia Precautions Precautions: Fall, Pressure Ulcer, Aspiration Precautions/Isolations: Aspiration, Fall Prevention, Standard Precautions, Pressure Ulcer Referral Referring Physician: Dr. Brody Reason for Referral: Evaluation/Treatment Medical History Pertinent Medical History: Dementia, HTN, Hypothroidism Reviewed History: Yes Social History Current Living Status: Alone Speech PLF-Current Status Prior Level of Function Prior to one day ago, the patient was verbally communicating with family and friends. Approximately one day ago, the patient experienced confusion with continued decline. At this time, the patient is not communicating verbally or nonverbally. Subjective The patient was lying in bed, eyes opened, upon entrance to her room. The patient does not make eye contact when provided a verbal greeting or when her name is spoken by the clinician. The patient has four family members present at bedside (all remain for the evaluation). Language Eval: Auditory Comprehends Simple Yes/No Ques: Severe Indent/Objects Multiple Burnett: Severe Follows 1-Step Commands: Severe Follows General Conversations: Severe Language Eval: Verbal Language Completes Spontaneous Greeting: Severe Produces Auto, Serial Info: Severe Imitates Simple Words/Phrases: Severe Word Finding: Severe Requests Basic Needs: Severe States Basic Personal Info: Severe Objective Impression The patient displays expressive and receptive aphasia. The patient does not attempt to communicate verbally or non-verbally with the clinician. The patient is unable to follow simple one-step commands regardless of a direct model. The patient does not respond to simple yes and no questions with maximum clinician cueing. Speech Short Term Goals Short Term Goals Short Term Goals 1. The patient will display safe swallowing precautions with 80% accuracy and moderate verbal and visual cueing. 2. The patient will display 80% accuracy with simple yes and no questions (verbally or non-verbally). Time Frame-STG: Five Days. Speech Medical Assistant Goals Long-Term Goals 1. The patient will tolerate the least restrictive diet consistency without s/s of suspected aspiration. 2. The patient will display improved cognitive linguistic skills for safe discharge to the least restrictive environment. Time Frame: One Week. Speech-Plan Treatment Plan Speech Therapy Treatment Plan: Continue Plan of Care Treatment Duration: Jul 26, 2022 Frequency: 4 times per week Estimated Hrs Per Day: .25 hour per day Rehab Potential: Guarded Pt/Family Agrees to Plan: Yes Safety Risks/Education Teaching Recipient: Patient, Family Teaching Methods: Discussion Response to Teaching: Verbalize Understanding (Family.) Education Topics Provided: Results, Recommendations, Plan of Care Time Speech Therapy Time In: 09:10 Speech Therapy Time Out: 09:32 DATE: Jul 17, 2022 Total Billed Time: 22 Billed Treatment Time 1, MANDA FARRIS [facility] Jul 17, 2022 11:47
--- NOTE | 2022-07-17 11:54 | Occ Therapy Progress Note ---
Therapy Progress Note Discontinue OT services, patient to Discharge w/ hospice CHUY ARMENDARIZ OT Jul 17, 2022 11:54
[2022-07-17] MEDS: ENOXAPARIN 40 MG/0.4 ML (LOVENOX) SYR SQ SCH (12:00)
[2022-07-17 15:41] VITALS: BP 140/80
[2022-07-17 15:55] VITALS: BP 140/80
--- NOTE | 2022-07-18 13:04 | Physician Query Clarification ---
PQ-Intro New Diagnosis Admission/Discharge Admission Date: Jul 12, 2022 at 11:55 Discharge Date: Jul 17, 2022 at 13:30 Dr. Reina, The medical record reflects the following clinical scenario: History/Risk Factors: pneumonia, acute hypoxic respiratory failure, dementia, HTN Clinical Findings: confusion, lt facial droop, lt arm weakness, aphasia, oropharyngeal dysphagia CT head - Atrophy and chronic ischemic changes in deep white matter. Underlying sinus disease as described above. MRI - This study is limited as only the diffusion sequence could be obtained. There is no abnormal signal arising from the brain on the diffusion series however to indicate an area of acute ischemia. Luis Carotid doppler - There is no grayscale or Doppler evidence of significant vascular stenosis. Treatment: Aspirin, Lipitor, PT/ST/OT Question: What condition best reflects the above clinical scenario? Please document a response in the Progress Noter or Discharge Summary. 1. Stroke 2. TIA 3. Other, with explanation of the clinical findings. 4. Clinically undetermined, no explanation for the clinical findings. PHYSICIAN RESPONSE What condition reflects above: 1 In responding to this query, please exercise your independent professional judgment. The purpose of this communication is to more accurately reflect the complexity of your patients condition. The fact that a question is asked does not imply that any particular answer is desired or expected. Thank you for your timely response to this clarification. Requestors name: Kelvin THIS PHYSICIAN QUERY FORM IS A PERMANENT PART OF THE MEDICAL RECORD KELVIN ROTHMAN Jul 18, 2022 13:04 LEO REINA MD Aug 02, 2022 21:06
== END 2022-07-17 13:30 | disposition hospice, home (50) | DRG 193 ==
LOC: EDUNIT# 08:32 → ER 08:34 → 4TH 11:55
PROVIDERS: ADMIT Family Medicine; ATTEND Internal Medicine
DX: J18.9 Pneumonia, unspecified organism (principal); I63.9 Cerebral infarction, unspecified; J96.01 Acute respiratory failure with hypoxia; R47.01 Aphasia; R41.0 Disorientation, unspecified; R29.810 Facial weakness; G83.24 Monoplegia of upper limb affecting left nondominant side; R13.12 Dysphagia, oropharyngeal phase; F03.90 Unspecified dementia, unspecified severity, without behavioral disturbance, psychotic disturbance, mood disturbance, and anxiety; Z66 Do not resuscitate; Z20.822 Contact with and (suspected) exposure to COVID-19; E06.3 Autoimmune thyroiditis; I10 Essential (primary) hypertension; E03.9 Hypothyroidism, unspecified; H54.7 Unspecified visual loss; Z88.1 Allergy status to other antibiotic agents; Z88.2 Allergy status to sulfonamides; Z79.899 Other long term (current) drug therapy; Z51.5 Encounter for palliative care
CPT/HCPCS: 36415; 70450; 70551; 71045; 71275; 80048; 80053; 80061; 81000; 83605; 83880; 85025; 85027; 87040; 87088; 87636; 93005; 93880; 94640; 94760; 94761; 96365; 96375